=== PATIENT | male | born 1960 | race African-American/Black ===

== ENCOUNTER 2016-10-23 10:50 | Inpatient (IN) | payer MEDICAID ==
[~2016-10-23] VITALS: Ht 182.9 cm; Wt 104.3 kg
[2016-10-23 10:59] VITALS: BP 132/70
[2016-10-23 11:55] LABS: BASOPHILS % (AUTO) 1.1 % (0.0-2.0); EOSINOPHILS % (AUTO) 0.6 % (0.0-3.0); LYMPHOCYTES % (AUTO) 26.4 % (20.0-45.0); MEAN CORPUSCULAR HEMOGLOBIN 29.9 PG (27.0-31.0); MEAN CORPUSCULAR HGB CONC 32.3 G/DL (32.0-36.0); MEAN CORPUSCULAR VOLUME 93 FL (80-99); MEAN PLATELET VOLUME 5.5 FL (6.5-10.1); MONOCYTES % (AUTO) 2.5 % (1.0-10.0); NEUTROPHILS % (AUTO) 69.3 % (45.0-75.0); PLATELET COUNT 315 K/UL (150-450); RED BLOOD COUNT 3.61 M/UL (4.70-6.10); RED CELL DISTRIBUTION WIDTH 13.7 % (11.6-14.8); WHITE BLOOD COUNT 5.9 K/UL (4.8-10.8)
[2016-10-23 12:10] LABS: ALANINE AMINOTRANSFERASE 58 U/L (3-41); ALBUMIN/GLOBULIN RATIO 0.6 (1.0-2.7); ANION GAP 15 (5-15); ASPARTATE AMINO TRANSFERASE 118 U/L (5-40); CALCIUM 9.1 mg/dL (8.6-10.2); CARBON DIOXIDE 28 mEQ/L (20-30); CHLORIDE 96 mEQ/L (98-107); CREATININE 0.9 mg/dL (0.7-1.2); GLOMERULAR FILTRATION RATE > 60 mL/min (>60); HEMOLYSIS 24; POTASSIUM 4.1 mEQ/L (3.4-4.9); SODIUM 139 mEQ/L (135-145); TOTAL PROTEIN 7.9 g/dL (6.6-8.7)
[2016-10-23 14:51] VITALS: BP 122/77
[2016-10-23] MEDS ORDERED: UNOBMED (14:51)
--- NOTE | 2016-10-23 14:51 | Emergency Room Report ---
History of Present Illness General Chief Complaint: Abdominal Pain Source: Patient, EMS Present Illness HPI Patient presents emergency department today complaining of abdominal pain. Patient is homeless. He states that he was an outside hospital where he received some IV fluids and then subsequently his testicles became very enlarged. Has been getting worse over last couple days ago we cannot walk. He called 911 and that's Carmen and appeared. Patient's currently homeless. Patient denies any chest pain. Complains mild shortness breath. Patient is a very poor historian. He does smell of alcohol. Symptoms noted to be severe. No other modifying factors. No other associated signs and symptoms. No other complaints were noted. Allergies: Coded Allergies: No Known Allergies (Unverified , 10/23/16) Patient History Past Medical History: DM, HTN, HIV, other - Substance abuse PMH Narrative hepatitis C Past Surgical History: none Social History: Reports: drug use Reviewed Nursing Documentation: PMH: Agreed, PSxH: Agreed Nursing Documentation-PMH Hx Diabetes: Yes History Of Psychiatric Problem: Yes - Substance abuse Review of Systems All Other Systems: negative except mentioned in HPI Physical Exam Vital Signs Date Time Temp Pulse Resp B/P Pulse Ox O2 Delivery O2 Flow Rate FiO2 10/23/16 10:44 98.6 88 16 132/70 97 Room Air Sp02 EP Interpretation: reviewed, normal General Appearance: alert, other - unkept, appears a little sleepy. Appears chronically ill Head: atraumatic Eyes: bilateral eye normal inspection ENT: normal ENT inspection, hearing grossly normal, normal voice Neck: normal inspection, full range of motion, supple, no bony tend Respiratory: normal inspection, lungs clear, normal breath sounds, no respiratory distress, no retraction, no wheezing Cardiovascular #1: regular rate, rhythm, no edema Gastrointestinal: non tender, distended, other - abdominal distension, ascites Genitourinary: no CVA tenderness, other - enlarged and edematous scrotum Musculoskeletal: normal inspection, back normal, normal range of motion Neurologic: normal inspection, alert, responsive, speech normal Psychiatric: depressed affect, other - poor insight Skin: normal inspection, normal color, no rash Medical Decision Making Diagnostic Impression: Primary Impression: Ascites Additional Impressions: Hydrocele in adult Fluid retention Anasarca Hyperglycemia ER Course Patient presents emergency department today complaining of swelling diffusely throughout the body. Differential considerations include fluid retention secondary to kidney disease, liver disease, fluid overload,. Patient laboratory workup shows evidence of elevated glucose as well. This is consistent hyperglycemia secondary to medication noncompliance or undiagnosed diabetes. Therefore patient was given insulin as well as Lasix. He began to have good urine output. However given severe swelling that he's experiencing evidence anasarca I felt the patient require admission for further treatment. Case was discussed in detail with Dr. Rk Saavedra who very graciously agreed to accept the patient. Patient will be admitted to Dr. Saavedra service further treatment. Labs Test 10/23/16 11:38 White Blood Count 5.9 K/UL (4.8-10.8) Red Blood Count 3.61 M/UL (4.70-6.10) Hemoglobin 10.8 G/DL (14.2-18.0) Hematocrit 33.5 % (42.0-52.0) Mean Corpuscular Volume 93 FL (80-99) Mean Corpuscular Hemoglobin 29.9 PG (27.0-31.0) Mean Corpuscular Hemoglobin Concent 32.3 G/DL (32.0-36.0) Red Cell Distribution Width 13.7 % (11.6-14.8) Platelet Count 315 K/UL (150-450) Mean Platelet Volume 5.5 FL (6.5-10.1) Neutrophils (%) (Auto) 69.3 % (45.0-75.0) Lymphocytes (%) (Auto) 26.4 % (20.0-45.0) Monocytes (%) (Auto) 2.5 % (1.0-10.0) Eosinophils (%) (Auto) 0.6 % (0.0-3.0) Basophils (%) (Auto) 1.1 % (0.0-2.0) Sodium Level 139 mEQ/L (135-145) Potassium Level 4.1 mEQ/L (3.4-4.9) Chloride Level 96 mEQ/L (98-107) Carbon Dioxide Level 28 mEQ/L (20-30) Anion Gap 15 (5-15) Blood Urea Nitrogen 9 mg/dL (7-23) Creatinine 0.9 mg/dL (0.7-1.2) Estimat Glomerular Filtration Rate > 60 mL/min (>60) Glucose Level 521 mg/dL (74-106) Calcium Level 9.1 mg/dL (8.6-10.2) Total Bilirubin 0.3 mg/dL (0.0-1.2) Aspartate Amino Transf (AST/SGOT) 118 U/L (5-40) Alanine Aminotransferase (ALT/SGPT) 58 U/L (3-41) Alkaline Phosphatase 205 U/L (40-129) Total Protein 7.9 g/dL (6.6-8.7) Albumin 3.2 g/dL (3.5-5.2) Globulin 4.7 g/dL Albumin/Globulin Ratio 0.6 (1.0-2.7) Last Vital Signs Date Time Temp Pulse Resp B/P Pulse Ox O2 Delivery O2 Flow Rate FiO2 10/23/16 10:59 98.6 16 132/70 97 Room Air 10/23/16 10:44 88 Status: improved Disposition: ADMITTED INPATIENT Condition: Serious Referrals: NOT CHOSEN IPA/,REFERRING (PCP) WILLY TREVIÑO M.D. Oct 23, 2016 14:51
[2016-10-23 15:55] VITALS: BP 116/78
[2016-10-23 16:28] LABS: APPEARANCE,URINE CLEAR; KETONES,URINE NEGATIVE (NEGATIVE); LEUKOCYTE ESTERASE ,URINE NEGATIVE (NEGATIVE); NITRITE,URINE NEGATIVE (NEGATIVE); PH,URINE 7 (4.5-8.0); PROTEIN,URINE NEGATIVE (NEGATIVE); UROBILINOGEN,URINE NORMAL MG/DL (0.0-1.0)
[2016-10-23] MEDS ORDERED: Ketorolac 30mg Inj IV PRN (18:45)
[2016-10-23] MEDS ORDERED: Mylanta II UD 30ml ORAL PRN (18:45)
[2016-10-23] MEDS ORDERED: Miralax 17gm pkt ORAL PRN (18:45)
[2016-10-23] MEDS ORDERED: DuoNeb 0.5-3(2.5)mg/3ml neb HHN PRN (18:45)
[2016-10-23] MEDS ORDERED: Nitroglycerin Subl 0.4mg tab (Bottle Of 25) SL PRN (18:45)
[2016-10-23 20:20] VITALS: BP 118/67
[2016-10-23 20:46] VITALS: BP 118/67
[2016-10-23] MEDS: Morphine Sulfate 2mg/ml Inj IVP PRN (21:25)
[2016-10-23] MEDS: Heparin 5000 units/ml inj SUBQ SCH (21:29)
[2016-10-23] MEDS: NovoLOG Insulin Flexpen SUBQ SCH (21:29)
--- NOTE | 2016-10-23 23:39 | History & Physical ---
History and Physical History & Physicial The patient was seen and examined at bedside and all new and available data was reviewed in the patients chart.. Last 24 Hour Vital Signs Date Time Temp Pulse Resp B/P Pulse Ox O2 Delivery O2 Flow Rate FiO2 10/23/16 20:46 98.7 99 20 118/67 98 Room Air 10/23/16 20:20 97.9 99 20 118/67 Room Air 10/23/16 15:55 99.7 101 20 116/78 97 Room Air 10/23/16 14:53 98.6 99 16 122/77 100 Room Air 10/23/16 14:51 98.6 99 16 122/77 100 Room Air 10/23/16 10:59 98.6 16 132/70 97 Room Air 10/23/16 10:44 98.6 88 16 132/70 97 Room Air (Patient was seen earlier today. Signature timestamp does not reflect patient encounter time) Rk Palafox MD, MD Oct 23, 2016 23:39
[2016-10-23 23:56] VITALS: BP 99/75
[2016-10-24 04:00] VITALS: BP 97/50
[2016-10-24] MEDS: Morphine Sulfate 2mg/ml Inj IVP PRN ×2 (04:57→18:24)
[2016-10-24] MEDS: NovoLOG Insulin Flexpen SUBQ SCH ×6 (05:56→21:17)
[2016-10-24 07:25] LABS: BASOPHILS % (AUTO) 0.4 % (0.0-2.0); EOSINOPHILS % (AUTO) 0.5 % (0.0-3.0); LYMPHOCYTES % (AUTO) 33.9 % (20.0-45.0); MEAN CORPUSCULAR HGB CONC 32.6 G/DL (32.0-36.0); MEAN CORPUSCULAR VOLUME 92 FL (80-99); MEAN PLATELET VOLUME 5.3 FL (6.5-10.1); MONOCYTES % (AUTO) 4.4 % (1.0-10.0); NEUTROPHILS % (AUTO) 60.9 % (45.0-75.0); PLATELET COUNT 284 K/UL (150-450); RED BLOOD COUNT 3.11 M/UL (4.70-6.10); RED CELL DISTRIBUTION WIDTH 13.7 % (11.6-14.8); WHITE BLOOD COUNT 6.7 K/UL (4.8-10.8)
[2016-10-24 07:29] LABS: ALANINE AMINOTRANSFERASE 43 U/L (3-41); ALBUMIN/GLOBULIN RATIO 0.5 (1.0-2.7); ANION GAP 10 (5-15); ASPARTATE AMINO TRANSFERASE 90 U/L (5-40); CARBON DIOXIDE 30 mEQ/L (20-30); CHLORIDE 102 mEQ/L (98-107); CHOLESTEROL 134 mg/dL (< 200); CHOLESTEROL/HDL RATIO 2.6 (3.3-4.4); CREATININE 0.8 mg/dL (0.7-1.2); GLOMERULAR FILTRATION RATE > 60 mL/min (>60); HEMOLYSIS 4; LDL CHOLESTEROL (CALC.) 67 mg/dL (60-99); POTASSIUM 3.6 mEQ/L (3.4-4.9); SODIUM 142 mEQ/L (135-145); TOTAL PROTEIN 6.1 g/dL (6.6-8.7)
[2016-10-24 08:21] LABS: HEMOGLOBIN A1C 15.9 % (< 6.0)
[2016-10-24 08:30] VITALS: BP 112/74
[2016-10-24] MEDS ORDERED: Levemir Flexpen SUBQ SCH (09:00)
[2016-10-24] MEDS: Heparin 5000 units/ml inj SUBQ SCH ×2 (09:00→21:18)
--- NOTE | 2016-10-24 11:38 | Consultation ---
DATE OF CONSULTATION: 10/24/2016 ENDOCRINOLOGY CONSULTATION: CONSULTING PHYSICIAN: Colton Nunez M.D. REFERRING PHYSICIAN: Rk Saavedra M.D. REASON FOR CONSULTATION: Diabetes management. HISTORY OF PRESENT ILLNESS: This is a 56-year-old, male, homeless with history of diabetes, diagnosed in 1994. The patient initially started on metformin and glipizide and later on his diabetes turned to type 1 was started on insulin. The patient is on insulin regular as an outpatient that he is not being compliant since he cannot keep his insulin with him and also it was stollen few times . PAST MEDICAL HISTORY: 1. Diabetes. 2. Hypertension. 3. Human immunodeficiency virus. PAST SURGICAL HISTORY: None. FAMILY HISTORY: Noncontributory. REVIEW OF SYSTEMS: As per history of present illness. SOCIAL HISTORY: History of substance abuse. Denies any alcohol or smoking. LABORATORY DATA: WBC 5.9, hemoglobin 10.8, hematocrit 32.5, and platelets of 316,000. Sodium 139, potassium 4.1, chloride 96, bicarbonate 28, BUN 9, creatinine 0.9, and glucose of 521. PHYSICAL EXAMINATION: GENERAL: He is awake and alert. VITAL SIGNS: Blood pressure is 97/50, pulse 148, temperature of 97.9, and respiratory rate of 18. HEENT: Pupils are equal and reactive to light and accommodation. Sclerae are anicteric. NECK: No JVD. No thyromegaly. No bruit. LUNGS: Clear. HEART: Regular rate and rhythm. ABDOMEN: Positive bowel sounds. EXTREMITIES: No clubbing or cyanosis. Trace edema. GENITALIA: Scrotal swelling. DIAGNOSES: 1. Diabetes, out of control. 2. Hypertension. 3. Human immunodeficiency virus. 4. Scrotal swelling. PLAN: 1. Continue with IV fluids. 2. Levemir 18 units daily. 3. NovoLog 6 units before each meal. 4. Sliding scale insulin. 5. Further adjustment needs to be done according to blood glucose values. Thank you, Dr. Saavedra, for the courtesy of this consultation. Colton Nunez M.D. DR: YANIRA/MARIO JOB#: [id number] CC: LELO
[2016-10-24 11:47] VITALS: BP 156/84
[2016-10-24 16:03] VITALS: BP 120/77
--- NOTE | 2016-10-24 16:37 | Consultation ---
Consult Note Consult Note ID CONSULT: Dict# [id number] Assessment/Plan ASSESSMENT: 56 y/o male with: // Testicular swelling, possible mild cellulitis // HIV, probable AIDS, not on cART, unknown CD4 // Elevated LFTs, h/o HCV // Periodontal disease // Afebrile without leukocytosis // UDS(+) BZD, cocaine // DM2 // Homeless // NKDA // Full Code PLAN: - start empiric keflex for possible mild cellulitis - check testicular US - outpt referral for HIV, HCV Rx - monitor CBC, temperatures - monitor BMP Thanks! Will follow ALLY SHAVER Oct 24, 2016 16:37
[2016-10-24] MEDS: Cephalexin 500mg cap ORAL SCH ×2 (18:24→21:12)
[2016-10-24 19:58] VITALS: BP 128/77
--- NOTE | 2016-10-24 20:28 | Internal Med Progress Note ---
Subjective Physician Name Rk Saavedra Attending Physician Rk Saavedra MD Current Medications Medications (Trade) Dose Ordered Sig/Jan Route PRN Reason Start Time Stop Time Status Last Admin Dose Admin Acetaminophen (Tylenol) 650 mg Q4H PRN ORAL fever 10/23/16 18:45 11/22/16 18:44 Al Hydroxide/Mg Hydroxide (Mylanta II) 30 ml Q6H PRN ORAL dyspepsia 10/23/16 18:45 11/22/16 18:44 Albuterol/ Ipratropium (DuoNeb 0.5-3(2.5)mg/3ml) 3 ml Q4H PRN HHN Shortness of Breath 10/23/16 18:45 10/28/16 18:44 Cephalexin (Keflex) 500 mg FOUR TIMES A DAY ORAL 10/24/16 18:00 10/31/16 17:59 10/24/16 18:24 Clonidine HCl 0.1 mg 0.1 mg Q4H PRN ORAL sbp more than 160 10/23/16 18:45 11/22/16 18:44 Dextrose (Dextrose 50%) STAT PRN IV Hypoglycemia 10/24/16 06:30 11/23/16 06:29 Heparin Sodium (Porcine) (Heparin 5000 units/ml) 5,000 units EVERY 12 HOURS SUBQ 10/23/16 21:00 11/22/16 20:59 10/23/16 21:29 Insulin Aspart (NovoLOG) BEFORE MEALS AND HS SUBQ 10/23/16 21:00 11/22/16 20:59 10/24/16 16:49 Insulin Aspart (NovoLOG) 6 units NOVOTIAC SUBQ 10/24/16 11:50 11/23/16 11:49 10/24/16 18:31 Insulin Detemir (Levemir) 18 units DAILY SUBQ 10/24/16 09:00 11/23/16 08:59 Ketorolac Tromethamine (Toradol 30mg) 30 mg Q6H PRN IV moderate pain 4-6 10/23/16 18:45 10/28/16 18:44 Morphine Sulfate (Morphine Sulfate) 2 mg Q4H PRN IVP severe pain 7-10 10/23/16 18:45 10/30/16 18:44 10/24/16 18:24 Nitroglycerin (Ntg) 0.4 mg Q5M X 3 DOSES PRN SL Prn Chest Pain 10/23/16 18:45 11/22/16 18:44 Ondansetron HCl (Zofran) 4 mg Q6H PRN IVP Nausea & Vomiting 10/23/16 18:45 11/22/16 18:44 Polyethylene Glycol (Miralax) 17 gm HSPRN PRN ORAL Constipation 10/23/16 18:45 11/22/16 18:44 Sodium Chloride (Sodium Chloride 1000ml bag) 1,000 ml @ 100 mls/hr Q10H IVLG 10/23/16 19:30 11/22/16 19:29 10/24/16 05:47 Temazepam (Restoril) 15 mg HSPRN PRN ORAL Insomnia 10/23/16 18:45 10/30/16 18:44 10/24/16 02:28 Allergies: Coded Allergies: No Known Allergies (Unverified , 10/23/16) Subjective awake, alert, responsive. eating good. Objective Last Vital Signs Date Time Temp Pulse Resp B/P Pulse Ox O2 Delivery O2 Flow Rate FiO2 10/24/16 19:58 99.1 97 21 128/77 94 Room Air 10/24/16 09:54 21 Laboratory Tests Test 10/24/16 05:00 10/24/16 05:40 Urine Opiates Screen Negative (NEGATIVE) Urine Barbiturates Screen Negative (NEGATIVE) Phencyclidine (PCP) Screen Negative (NEGATIVE) Urine Amphetamines Screen Negative (NEGATIVE) Urine Benzodiazepines Screen Positive (NEGATIVE) H Urine Cocaine Screen Positive (NEGATIVE) H Urine Marijuana (THC) Screen Negative (NEGATIVE) White Blood Count 6.7 K/UL (4.8-10.8) Red Blood Count 3.11 M/UL (4.70-6.10) L Hemoglobin 9.3 G/DL (14.2-18.0) L Hematocrit 28.5 % (42.0-52.0) L Mean Corpuscular Volume 92 FL (80-99) Mean Corpuscular Hemoglobin 30.0 PG (27.0-31.0) Mean Corpuscular Hemoglobin Concent 32.6 G/DL (32.0-36.0) Red Cell Distribution Width 13.7 % (11.6-14.8) Platelet Count 284 K/UL (150-450) Mean Platelet Volume 5.3 FL (6.5-10.1) L Neutrophils (%) (Auto) 60.9 % (45.0-75.0) Lymphocytes (%) (Auto) 33.9 % (20.0-45.0) Monocytes (%) (Auto) 4.4 % (1.0-10.0) Eosinophils (%) (Auto) 0.5 % (0.0-3.0) Basophils (%) (Auto) 0.4 % (0.0-2.0) Sodium Level 142 mEQ/L (135-145) Potassium Level 3.6 mEQ/L (3.4-4.9) Chloride Level 102 mEQ/L (98-107) Carbon Dioxide Level 30 mEQ/L (20-30) Anion Gap 10 (5-15) Blood Urea Nitrogen 8 mg/dL (7-23) Creatinine 0.8 mg/dL (0.7-1.2) Estimat Glomerular Filtration Rate > 60 mL/min (>60) Glucose Level 135 mg/dL (74-106) #H Hemoglobin A1c 15.9 % (< 6.0) H Calcium Level 8.0 mg/dL (8.6-10.2) L Total Bilirubin 0.2 mg/dL (0.0-1.2) Aspartate Amino Transf (AST/SGOT) 90 U/L (5-40) H Alanine Aminotransferase (ALT/SGPT) 43 U/L (3-41) H Alkaline Phosphatase 151 U/L (40-129) H Total Protein 6.1 g/dL (6.6-8.7) L Albumin 2.2 g/dL (3.5-5.2) L Globulin 3.9 g/dL Albumin/Globulin Ratio 0.5 (1.0-2.7) L Triglycerides Level 77 mg/dL (< 150) Cholesterol Level 134 mg/dL (< 200) LDL Cholesterol 67 mg/dL (60-99) HDL Cholesterol 52 mg/dL (> 60) Cholesterol/HDL Ratio 2.6 (3.3-4.4) L Thyroid Stimulating Hormone (TSH) 1.050 uIU/mL (0.300-4.500) Intake and Output 10/23/16 10/24/16 19:00 07:00 Intake Total 120 ml 1140 ml Output Total 1400 ml 2000 ml Balance -1280 ml -860 ml Intake Oral 120 ml 240 ml IV Total 900 ml Output Urine Total 1400 ml 2000 ml Objective GENERAL: No apparent distress. Nontoxic appearing HEAD: PERRLA, EOMI NECK: Supple no JVD CARDIOVASCULAR: Regular rate and rhythm. No murmurs. PULMONARY: Clear to auscultation bilaterally. ABDOMEN: Bowel sounds present. Soft, nondistended, and nontender. Well-healed surgical scars. GENITOURINARY: Testicular swelling. No significant erythema or warmth. EXTREMITIES: +2 Edema in the lower extremities. Assessment/Plan Assessment/Plan 1. Testicular swelling, possible mild cellulitis. 2. Human immunodeficiency virus and probable acquired immune deficiency syndrome, not on treatment with unknown CD4 count. 3. Elevated liver function tests with history of hepatitis C, never treated. 4. Periodontal disease. 5. polysubstance abuse 6. Uncontrolled Diabetes type 2. 7. Homelessness. PLAN: 1. On empiric Keflex 2. DC IVF 3. Lasix as needed 4. Follow up cultures. 5. DC Planning Rk Saavedra MD Oct 24, 2016 20:28
--- NOTE | 2016-10-24 21:21 | Wound Care Consultation ---
Wound Assessment Wound Assessment : Wound Present on Admission: Yes New Wound: No Status Change of Wound: No Wound Location Body Site Modif: left, right, lower Wound Location Body Site: leg Wound Type: scab Zaid Test: Does not Zaid Edema Degree: 2+ indent readily Wound Drainage Amount: None Wound Drainage Odor: None/Absent Tissue Surrounding Wound: Edematous Wound General Appearance: Asymptomatic Wound Comment #1 Bilateral lower legs with multiple scab and scar. Recommendation -Keep clean and dry -Turn and reposition -Optimize nutrition -Elevate both legs -Assess and f/u accordingly for any changes ANDREI MORTON RN Oct 24, 2016 21:21
--- NOTE | 2016-10-24 22:40 | Consultation ---
DATE OF CONSULTATION: 10/24/2016 ATTENDING PHYSICIAN: Rk Saavedra M.D. REASON FOR CONSULTATION: HIV. HISTORY OF PRESENT ILLNESS: This is a 56-year-old homeless male with a history of hepatitis C and HIV, neither of which he has received treatment for, admitted on 10/23/2016 with testicular pain ____ mild swelling. He is afebrile without leukocytosis. No cultures have been sent or imaging performed. ID now consulted to assist in management. PAST MEDICAL HISTORY: 1. HIV, not on antiretroviral therapy. He was only on antiretroviral therapy for a short time back in 2011. 2. History of hepatitis C, but has never been treated and unknown status. 3. Hypertension. 4. Diabetes. PAST SURGICAL HISTORY: surgery for small bowel obstruction. FAMILY HISTORY: Noncontributory. SOCIAL HISTORY: The patient is homeless and has a history of polysubstance abuse. ALLERGIES: No known drug allergies. MEDICATIONS: 1. No antibiotics. 2. Please refer to [facility] for additional medications. REVIEW OF SYSTEMS: As per history of present illness. Ten systems reviewed. All pertinent positives and negatives as noted. PHYSICAL EXAMINATION: VITAL SIGNS: Maximum temperature 99.5, blood pressure 120/77, heart rate in the 90s, respiratory rate 22, and saturating 97% on room air. GENERAL: No apparent distress. Nontoxic appearing. CARDIOVASCULAR: Regular rate and rhythm. No murmurs. PULMONARY: Clear to auscultation bilaterally. ABDOMEN: Bowel sounds present. Soft, nondistended, and nontender. Well-healed surgical scars. GENITOURINARY: Testicular swelling. No significant erythema or warmth. EXTREMITIES: Edema in the lower extremities. LABORATORY DATA: White blood cell count 6.7, hemoglobin 9.3, and platelets 284,000. Sodium 142, potassium 3.6, chloride 102, bicarbonate 30, BUN 8, and creatinine 0.6. AST 90, ALT 43, alkaline phosphatase 151, total bilirubin 0.2, and albumin 2.2. MICROBIOLOGY: None. IMAGING: None. ASSESSMENT: 1. Testicular swelling, possible mild cellulitis. 2. Human immunodeficiency virus and probable acquired immune deficiency syndrome, not on treatment with unknown CD4 count. 3. Elevated liver function tests with history of hepatitis C, never treated. 4. Periodontal disease. 5. Afebrile without leukocytosis. 6. Urine drug screen positive for benzodiazepines and cocaine. 7. Diabetes type 2. 8. Homelessness. 9. No known drug allergies. 10. Full Code. PLAN: 1. Start empiric Keflex for possible mild scrotal cellulitis. 2. Check testicular ultrasound. 3. Outpatient referral for human immunodeficiency virus and hepatitis C treatment. 4. Follow up cultures. 5. Monitor CBC and temperatures. 6. Monitor BMP. Thank you. We will follow. Rian Anderson M.D. DR: MARISOL JOB#: [id number] CC: Rk Saavedra M.D.; Fax#: [phone] Koch M.D; Fax#: [phone]
[2016-10-25] VITALS: BP 108/65
--- NOTE | 2016-10-25 | Consultation ---
History of Present Illness General Date patient seen: Oct 24, 2016 Chief Complaint: Abdominal Pain Reason for Consultation: inpatient management Present Illness HPI 56 year old male with hx of HIV, Hep C, DM, [place] [facility] [place] of increased fatigue and swelling of scrotum. Allergies: Coded Allergies: No Known Allergies (Unverified , 10/23/16) Medication History Miscellaneous Medications Unable to Obtain Medications (Unable To Obtain Meds), (Reported) Patient History Healthcare decision maker Resuscitation status Full Code Advanced Directive on File Past Medical/Surgical History Past Medical/Surgical History: (1) HIV disease (2) Hepatitis C (3) Ascites (4) Anasarca Review of Systems All Other Systems: negative except mentioned in HPI Physical Exam Last 24 Hour Vital Signs Date Time Temp Pulse Resp B/P Pulse Ox O2 Delivery O2 Flow Rate FiO2 10/24/16 19:58 99.1 97 21 128/77 94 Room Air 10/24/16 19:00 88 16 Room Air 21 10/24/16 16:03 99.5 96 22 120/77 97 Room Air 10/24/16 11:47 97.0 100 20 156/84 97 Room Air 10/24/16 09:54 88 14 Room Air 21 10/24/16 08:30 97.0 120 20 112/74 98 Room Air 10/24/16 04:00 97.9 148 18 97/50 98 Room Air Intake and Output 10/24/16 10/25/16 18:59 06:59 Intake Total 1260 ml 640 ml Output Total 240 ml 1000 ml Balance 1020 ml -360 ml Intake Oral 360 ml 640 ml IV Total 900 ml Output Urine Total 240 ml 1000 ml # Voids 1 2 Laboratory Tests Test 10/24/16 05:00 10/24/16 05:40 Urine Opiates Screen Negative (NEGATIVE) Urine Barbiturates Screen Negative (NEGATIVE) Phencyclidine (PCP) Screen Negative (NEGATIVE) Urine Amphetamines Screen Negative (NEGATIVE) Urine Benzodiazepines Screen Positive (NEGATIVE) H Urine Cocaine Screen Positive (NEGATIVE) H Urine Marijuana (THC) Screen Negative (NEGATIVE) White Blood Count 6.7 K/UL (4.8-10.8) Red Blood Count 3.11 M/UL (4.70-6.10) L Hemoglobin 9.3 G/DL (14.2-18.0) L Hematocrit 28.5 % (42.0-52.0) L Mean Corpuscular Volume 92 FL (80-99) Mean Corpuscular Hemoglobin 30.0 PG (27.0-31.0) Mean Corpuscular Hemoglobin Concent 32.6 G/DL (32.0-36.0) Red Cell Distribution Width 13.7 % (11.6-14.8) Platelet Count 284 K/UL (150-450) Mean Platelet Volume 5.3 FL (6.5-10.1) L Neutrophils (%) (Auto) 60.9 % (45.0-75.0) Lymphocytes (%) (Auto) 33.9 % (20.0-45.0) Monocytes (%) (Auto) 4.4 % (1.0-10.0) Eosinophils (%) (Auto) 0.5 % (0.0-3.0) Basophils (%) (Auto) 0.4 % (0.0-2.0) Sodium Level 142 mEQ/L (135-145) Potassium Level 3.6 mEQ/L (3.4-4.9) Chloride Level 102 mEQ/L (98-107) Carbon Dioxide Level 30 mEQ/L (20-30) Anion Gap 10 (5-15) Blood Urea Nitrogen 8 mg/dL (7-23) Creatinine 0.8 mg/dL (0.7-1.2) Estimat Glomerular Filtration Rate > 60 mL/min (>60) Glucose Level 135 mg/dL (74-106) #H Hemoglobin A1c 15.9 % (< 6.0) H Calcium Level 8.0 mg/dL (8.6-10.2) L Total Bilirubin 0.2 mg/dL (0.0-1.2) Aspartate Amino Transf (AST/SGOT) 90 U/L (5-40) H Alanine Aminotransferase (ALT/SGPT) 43 U/L (3-41) H Alkaline Phosphatase 151 U/L (40-129) H Total Protein 6.1 g/dL (6.6-8.7) L Albumin 2.2 g/dL (3.5-5.2) L Globulin 3.9 g/dL Albumin/Globulin Ratio 0.5 (1.0-2.7) L Triglycerides Level 77 mg/dL (< 150) Cholesterol Level 134 mg/dL (< 200) LDL Cholesterol 67 mg/dL (60-99) HDL Cholesterol 52 mg/dL (> 60) Cholesterol/HDL Ratio 2.6 (3.3-4.4) L Thyroid Stimulating Hormone (TSH) 1.050 uIU/mL (0.300-4.500) Height (Feet): 6 Height (Inches): 0.00 Weight (Pounds): 230 Medications Current Medications Medications (Trade) Dose Ordered Sig/Jan Route PRN Reason Start Time Stop Time Status Last Admin Dose Admin Acetaminophen (Tylenol) 650 mg Q4H PRN ORAL fever 10/23/16 18:45 11/22/16 18:44 Al Hydroxide/Mg Hydroxide (Mylanta II) 30 ml Q6H PRN ORAL dyspepsia 10/23/16 18:45 11/22/16 18:44 Albuterol/ Ipratropium (DuoNeb 0.5-3(2.5)mg/3ml) 3 ml Q4H PRN HHN Shortness of Breath 10/23/16 18:45 10/28/16 18:44 Cephalexin (Keflex) 500 mg FOUR TIMES A DAY ORAL 10/24/16 18:00 10/31/16 17:59 10/24/16 21:12 Clonidine HCl 0.1 mg 0.1 mg Q4H PRN ORAL sbp more than 160 10/23/16 18:45 11/22/16 18:44 Dextrose (Dextrose 50%) STAT PRN IV Hypoglycemia 10/24/16 06:30 11/23/16 06:29 Heparin Sodium (Porcine) (Heparin 5000 units/ml) 5,000 units EVERY 12 HOURS SUBQ 10/23/16 21:00 11/22/16 20:59 10/24/16 21:18 Insulin Aspart (NovoLOG) BEFORE MEALS AND HS SUBQ 10/23/16 21:00 11/22/16 20:59 10/24/16 21:17 Insulin Aspart (NovoLOG) 6 units NOVOTIAC SUBQ 10/24/16 11:50 11/23/16 11:49 10/24/16 18:31 Insulin Detemir (Levemir) 18 units DAILY SUBQ 10/24/16 09:00 11/23/16 08:59 Ketorolac Tromethamine (Toradol 30mg) 30 mg Q6H PRN IV moderate pain 4-6 10/23/16 18:45 10/28/16 18:44 Morphine Sulfate (Morphine Sulfate) 2 mg Q4H PRN IVP severe pain 7-10 10/23/16 18:45 10/30/16 18:44 10/24/16 18:24 Nitroglycerin (Ntg) 0.4 mg Q5M X 3 DOSES PRN SL Prn Chest Pain 10/23/16 18:45 11/22/16 18:44 Ondansetron HCl (Zofran) 4 mg Q6H PRN IVP Nausea & Vomiting 10/23/16 18:45 11/22/16 18:44 Polyethylene Glycol (Miralax) 17 gm HSPRN PRN ORAL Constipation 10/23/16 18:45 11/22/16 18:44 Sodium Chloride (Sodium Chloride 1000ml bag) 1,000 ml @ 100 mls/hr Q10H IVLG 10/23/16 19:30 11/22/16 19:29 10/24/16 05:47 Temazepam (Restoril) 15 mg HSPRN PRN ORAL Insomnia 10/23/16 18:45 10/30/16 18:44 10/24/16 02:28 Objective Narrative General Appearance: WD/WN, no apparent distress, alert EENT: PERRL/EOMI, normal ENT inspection, TMs normal, hair lose. Neck: non-tender, normal alignment, supple, normal inspection Cardiovascular: normal peripheral pulses, normal rate, regular rhythm, no murmur. Respiratory/Chest: CTA, crackles/rales, rhonchi , no wheezing Abdomen: normal bowel sounds, non tender, soft, no mass Extremities: normal range of motion, non-tender Neurologic: non cdl driver II-XII grossly normal, Moving all extremities. Skin: normal pigmentation, warm/dry Assessment/Plan Problem List: (1) Anasarca ICD Codes: R60.1 - Generalized edema SNOMED: 499345038, 733625720 (2) Hydrocele in adult ICD Codes: N43.3 - Hydrocele, unspecified SNOMED: 59702730413300, 783444889 (3) HIV disease ICD Codes: B20 - Human immunodeficiency virus [HIV] disease SNOMED: 33557589 (4) Hepatitis C ICD Codes: B19.20 - Unspecified viral hepatitis C without hepatic coma SNOMED: 00504261 (5) Hyperglycemia ICD Codes: R73.9 - Hyperglycemia, unspecified SNOMED: 22789198, 006304162 Assessment/Plan iv antibiotics for cellulitis HIV evaluation social service consult sliding scale FELICITA CUNNINGHAM Oct 25, 2016 00:00
[2016-10-25] MEDS: Morphine Sulfate 2mg/ml Inj IVP PRN ×3 (00:09→18:09)
[2016-10-25 04:00] VITALS: BP 114/73
[2016-10-25] MEDS: NovoLOG Insulin Flexpen SUBQ SCH ×7 (06:00→20:43)
--- NOTE | 2016-10-25 07:38 | General Progress Note ---
Assessment/Plan Problem List: (1) Hydrocele in adult ICD Codes: N43.3 - Hydrocele, unspecified SNOMED: 29213481489350, 774850508 (2) Hyperglycemia ICD Codes: R73.9 - Hyperglycemia, unspecified SNOMED: 47822425, 893403321 (3) Fluid retention ICD Codes: E87.70 - Fluid overload, unspecified SNOMED: 64462960, 607466177 Assessment/Plan elevated fasting glucose this morning he did not receive Levemir 18 units yesterday am - increase Levemir to 15 units bid - increase Novolog 10 units ac tid - SSI Subjective Allergies: Coded Allergies: No Known Allergies (Unverified , 10/23/16) All Systems: reviewed and negative except above Subjective elevated glucose this morning he is constantly hungry Objective Last 24 Hour Vital Signs Date Time Temp Pulse Resp B/P Pulse Ox O2 Delivery O2 Flow Rate FiO2 10/25/16 04:00 98.2 93 16 114/73 93 Room Air 10/25/16 00:00 97.5 96 16 108/65 94 Room Air 10/24/16 19:58 99.1 97 21 128/77 94 Room Air 10/24/16 19:00 88 16 Room Air 21 10/24/16 16:03 99.5 96 22 120/77 97 Room Air 10/24/16 11:47 97.0 100 20 156/84 97 Room Air 10/24/16 09:54 88 14 Room Air 21 10/24/16 08:30 97.0 120 20 112/74 98 Room Air Intake and Output 10/24/16 10/25/16 18:59 06:59 Intake Total 1260 ml 1480 ml Output Total 240 ml 1700 ml Balance 1020 ml -220 ml Intake Oral 360 ml 880 ml IV Total 900 ml 600 ml Output Urine Total 240 ml 1700 ml # Voids 1 5 Height (Feet): 6 Height (Inches): 0.00 Weight (Pounds): 230 General Appearance: no apparent distress Neck: normal alignment Cardiovascular: normal rate Respiratory/Chest: decreased breath sounds Abdomen: normal bowel sounds Objective Current Medications Medications (Trade) Dose Ordered Sig/Jan Route PRN Reason Start Time Stop Time Status Last Admin Dose Admin Acetaminophen (Tylenol) 650 mg Q4H PRN ORAL fever 10/23/16 18:45 11/22/16 18:44 Al Hydroxide/Mg Hydroxide (Mylanta II) 30 ml Q6H PRN ORAL dyspepsia 10/23/16 18:45 11/22/16 18:44 Albuterol/ Ipratropium (DuoNeb 0.5-3(2.5)mg/3ml) 3 ml Q4H PRN HHN Shortness of Breath 10/23/16 18:45 10/28/16 18:44 Cephalexin (Keflex) 500 mg FOUR TIMES A DAY ORAL 10/24/16 18:00 10/31/16 17:59 10/24/16 21:12 Clonidine HCl 0.1 mg 0.1 mg Q4H PRN ORAL sbp more than 160 10/23/16 18:45 11/22/16 18:44 Dextrose (Dextrose 50%) STAT PRN IV Hypoglycemia 10/24/16 06:30 11/23/16 06:29 Heparin Sodium (Porcine) (Heparin 5000 units/ml) 5,000 units EVERY 12 HOURS SUBQ 10/23/16 21:00 11/22/16 20:59 10/24/16 21:18 Insulin Aspart (NovoLOG) BEFORE MEALS AND HS SUBQ 10/23/16 21:00 11/22/16 20:59 10/25/16 06:00 Insulin Aspart (NovoLOG) 6 units NOVOTIAC SUBQ 10/24/16 11:50 11/23/16 11:49 10/25/16 06:00 Insulin Detemir (Levemir) 18 units DAILY SUBQ 10/24/16 09:00 11/23/16 08:59 Ketorolac Tromethamine (Toradol 30mg) 30 mg Q6H PRN IV moderate pain 4-6 10/23/16 18:45 10/28/16 18:44 Morphine Sulfate (Morphine Sulfate) 2 mg Q4H PRN IVP severe pain 7-10 10/23/16 18:45 10/30/16 18:44 10/25/16 00:09 Nitroglycerin (Ntg) 0.4 mg Q5M X 3 DOSES PRN SL Prn Chest Pain 10/23/16 18:45 11/22/16 18:44 Ondansetron HCl (Zofran) 4 mg Q6H PRN IVP Nausea & Vomiting 10/23/16 18:45 11/22/16 18:44 Polyethylene Glycol (Miralax) 17 gm HSPRN PRN ORAL Constipation 10/23/16 18:45 11/22/16 18:44 Sodium Chloride (Sodium Chloride 1000ml bag) 1,000 ml @ 100 mls/hr Q10H IVLG 10/23/16 19:30 11/22/16 19:29 10/25/16 00:09 Temazepam (Restoril) 15 mg HSPRN PRN ORAL Insomnia 10/23/16 18:45 10/30/16 18:44 10/24/16 02:28 Item Value Date Time Bedside Blood Glucose 478 mg/dl H 10/25/16 0612 Bedside Blood Glucose 226 mg/dl H 10/24/16 2117 Bedside Blood Glucose 223 mg/dl H 10/24/16 1831 Bedside Blood Glucose 212 mg/dl H 10/24/16 1152 FREDY GALAVIZ Oct 25, 2016 07:38
[2016-10-25 07:42] VITALS: BP 128/82
[2016-10-25] MEDS: Cephalexin 500mg cap ORAL SCH ×4 (09:25→20:40)
[2016-10-25] MEDS: Heparin 5000 units/ml inj SUBQ SCH ×2 (09:33→20:44)
[2016-10-25] MEDS: Levemir Flexpen SUBQ SCH ×2 (10:15→18:18)
[2016-10-25 10:34] LABS: ALANINE AMINOTRANSFERASE 48 U/L (3-41); ALBUMIN/GLOBULIN RATIO 0.5 (1.0-2.7); ANION GAP 12 (5-15); ASPARTATE AMINO TRANSFERASE 83 U/L (5-40); CALCIUM 8.4 mg/dL (8.6-10.2); CARBON DIOXIDE 28 mEQ/L (20-30); CHLORIDE 96 mEQ/L (98-107); CREATININE 0.9 mg/dL (0.7-1.2); GLOMERULAR FILTRATION RATE > 60 mL/min (>60); HEMOLYSIS 12; MAGNESIUM 1.6 mg/dL (1.7-2.5); PHOSPHORUS 3.4 mg/dL (2.5-4.8); POTASSIUM 4.5 mEQ/L (3.4-4.9); SODIUM 136 mEQ/L (135-145)
[2016-10-25 12:12] VITALS: BP 151/79
[2016-10-25] MEDS ORDERED: LEVEMIR FL100 UNIT/1 SUBQ (13:50)
[2016-10-25] MEDS ORDERED: NOVOLOG100 UNITS1 SUBQ (13:50)
--- NOTE | 2016-10-25 13:51 | Internal Med Progress Note ---
Subjective Physician Name Rk Saavedra Attending Physician Rk Saavedra MD Current Medications Medications (Trade) Dose Ordered Sig/Jan Route PRN Reason Start Time Stop Time Status Last Admin Dose Admin Acetaminophen (Tylenol) 650 mg Q4H PRN ORAL fever 10/23/16 18:45 11/22/16 18:44 Al Hydroxide/Mg Hydroxide (Mylanta II) 30 ml Q6H PRN ORAL dyspepsia 10/23/16 18:45 11/22/16 18:44 Albuterol/ Ipratropium (DuoNeb 0.5-3(2.5)mg/3ml) 3 ml Q4H PRN HHN Shortness of Breath 10/23/16 18:45 10/28/16 18:44 Cephalexin (Keflex) 500 mg FOUR TIMES A DAY ORAL 10/24/16 18:00 10/31/16 17:59 10/25/16 12:38 Clonidine HCl (Catapres) 0.1 mg Q4H PRN ORAL sbp more than 160 10/23/16 18:45 11/22/16 18:44 Dextrose (Dextrose 50%) STAT PRN IV Hypoglycemia 10/24/16 06:30 11/23/16 06:29 Heparin Sodium (Porcine) (Heparin 5000 units/ml) 5,000 units EVERY 12 HOURS SUBQ 10/23/16 21:00 11/22/16 20:59 10/25/16 09:33 Insulin Aspart (NovoLOG) BEFORE MEALS AND HS SUBQ 10/23/16 21:00 11/22/16 20:59 10/25/16 11:49 Insulin Aspart (NovoLOG) 10 units NOVOTIAC SUBQ 10/25/16 11:50 11/24/16 11:49 10/25/16 11:49 Insulin Detemir (Levemir) 15 units BID SUBQ 10/25/16 09:00 11/24/16 08:59 10/25/16 10:15 Ketorolac Tromethamine (Toradol 30mg) 30 mg Q6H PRN IV moderate pain 4-6 10/23/16 18:45 10/28/16 18:44 Morphine Sulfate (Morphine Sulfate) 2 mg Q4H PRN IVP severe pain 7-10 10/23/16 18:45 10/30/16 18:44 10/25/16 10:27 Nitroglycerin (Ntg) 0.4 mg Q5M X 3 DOSES PRN SL Prn Chest Pain 10/23/16 18:45 11/22/16 18:44 Ondansetron HCl (Zofran) 4 mg Q6H PRN IVP Nausea & Vomiting 10/23/16 18:45 11/22/16 18:44 Polyethylene Glycol (Miralax) 17 gm HSPRN PRN ORAL Constipation 10/23/16 18:45 11/22/16 18:44 Temazepam (Restoril) 15 mg HSPRN PRN ORAL Insomnia 10/23/16 18:45 10/30/16 18:44 10/24/16 02:28 Allergies: Coded Allergies: No Known Allergies (Unverified , 10/23/16) Subjective awake, alert, responsive. eating a lot. Objective Last Vital Signs Date Time Temp Pulse Resp B/P Pulse Ox O2 Delivery O2 Flow Rate FiO2 10/25/16 12:12 97.7 77 20 151/79 95 Room Air 10/25/16 08:06 21 Laboratory Tests Test 10/25/16 09:10 Sodium Level 136 mEQ/L (135-145) Potassium Level 4.5 mEQ/L (3.4-4.9) Chloride Level 96 mEQ/L (98-107) L Carbon Dioxide Level 28 mEQ/L (20-30) Anion Gap 12 (5-15) Blood Urea Nitrogen 14 mg/dL (7-23) Creatinine 0.9 mg/dL (0.7-1.2) Estimat Glomerular Filtration Rate > 60 mL/min (>60) Glucose Level 364 mg/dL (74-106) #H Calcium Level 8.4 mg/dL (8.6-10.2) L Phosphorus Level 3.4 mg/dL (2.5-4.8) Magnesium Level 1.6 mg/dL (1.7-2.5) L Total Bilirubin 0.2 mg/dL (0.0-1.2) Aspartate Amino Transf (AST/SGOT) 83 U/L (5-40) H Alanine Aminotransferase (ALT/SGPT) 48 U/L (3-41) H Alkaline Phosphatase 194 U/L (40-129) H Total Protein 7.0 g/dL (6.6-8.7) Albumin 2.6 g/dL (3.5-5.2) L Globulin 4.4 g/dL Albumin/Globulin Ratio 0.5 (1.0-2.7) L Microbiology Date/Time Source Procedure Growth Status 10/23/16 13:35 Nasal Nares MRSA Culture - Final Staphylococcus Aureus - Mrsa Complete 10/23/16 13:35 Rectum 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 Complete Intake and Output 10/24/16 10/25/16 19:00 07:00 Intake Total 1160 ml 1580 ml Output Total 240 ml 1700 ml Balance 920 ml -120 ml Intake Oral 360 ml 880 ml IV Total 800 ml 700 ml Output Urine Total 240 ml 1700 ml # Voids 1 5 Objective GENERAL: No apparent distress. Nontoxic appearing HEAD: PERRLA, EOMI NECK: Supple no JVD CARDIOVASCULAR: Regular rate and rhythm. No murmurs. PULMONARY: Clear to auscultation bilaterally. ABDOMEN: Bowel sounds present. Soft, nondistended, and nontender. Well-healed surgical scars. GENITOURINARY: Testicular swelling. No significant erythema or warmth. EXTREMITIES: +2 Edema in the lower extremities. Assessment/Plan Assessment/Plan 1. Testicular swelling, possible mild cellulitis. 2. Human immunodeficiency virus and probable acquired immune deficiency syndrome, not on treatment with unknown CD4 count. 3. Elevated liver function tests with history of hepatitis C, never treated. 4. Periodontal disease. 5. polysubstance abuse 6. Uncontrolled Diabetes type 2. 7. Homelessness. PLAN: 1. On empiric Keflex 2. discuss with RN 3. Lasix as needed 4. Follow up cultures. 5. DC Planning to [facility]dc today Rk Saavedra MD Oct 25, 2016 13:51
[2016-10-25 15:51] VITALS: BP 155/82
--- NOTE | 2016-10-25 18:44 | Pulmonology Progress Note ---
Assessment/Plan Problems: (1) Anasarca (2) Hydrocele in adult (3) HIV disease (4) Hepatitis C (5) Hyperglycemia Assessment/Plan iv antibiotics ID and endo notes reviewed improving might need placement Subjective ROS Limited/Unobtainable: No Interval Events: doing better Allergies: Coded Allergies: No Known Allergies (Unverified , 10/23/16) Objective Last 24 Hour Vital Signs Date Time Temp Pulse Resp B/P Pulse Ox O2 Delivery O2 Flow Rate FiO2 10/25/16 15:51 98.6 79 20 155/82 95 Room Air 10/25/16 12:12 97.7 77 20 151/79 95 Room Air 10/25/16 10:57 98.0 10/25/16 08:06 82 16 Room Air 21 10/25/16 07:42 98.0 83 20 128/82 95 Room Air 10/25/16 04:00 98.2 93 16 114/73 93 Room Air 10/25/16 00:00 97.5 96 16 108/65 94 Room Air 10/24/16 19:58 99.1 97 21 128/77 94 Room Air 10/24/16 19:00 88 16 Room Air 21 Intake and Output 10/24/16 10/25/16 19:00 07:00 Intake Total 1160 ml 1580 ml Output Total 240 ml 1700 ml Balance 920 ml -120 ml Intake Oral 360 ml 880 ml IV Total 800 ml 700 ml Output Urine Total 240 ml 1700 ml # Voids 1 5 Objective General Appearance: WD/WN, no apparent distress, alert EENT: PERRL/EOMI, normal ENT inspection, TMs normal, hair lose. Neck: non-tender, normal alignment, supple, normal inspection Cardiovascular: normal peripheral pulses, normal rate, regular rhythm, no murmur. Respiratory/Chest: CTA, crackles/rales, rhonchi , no wheezing Abdomen: normal bowel sounds, non tender, soft, no mass Extremities: normal range of motion, non-tender Neurologic: solar technician II-XII grossly normal, Moving all extremities. Skin: normal pigmentation, warm/dry Microbiology Date/Time Source Procedure Growth Status 10/23/16 13:35 Nasal Nares MRSA Culture - Final Staphylococcus Aureus - Mrsa Complete 10/23/16 13:35 Rectum 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 Complete Laboratory Tests 10/25/16 09:10: Sodium Level 136, Potassium Level 4.5, Chloride Level 96L, Carbon Dioxide Level 28, Anion Gap 12, Blood Urea Nitrogen 14, Creatinine 0.9, Estimat Glomerular Filtration Rate > 60, Glucose Level 364#H, Calcium Level 8.4L, Phosphorus Level 3.4, Magnesium Level 1.6L, Total Bilirubin 0.2, Aspartate Amino Transf (AST/SGOT ) 83H, Alanine Aminotransferase (ALT/SGPT) 48H, Alkaline Phosphatase 194H, Total Protein 7.0, Albumin 2.6L, Globulin 4.4, Albumin/Globulin Ratio 0.5L Current Medications Medications (Trade) Dose Ordered Sig/Jan Route PRN Reason Start Time Stop Time Status Last Admin Dose Admin Acetaminophen (Tylenol) 650 mg Q4H PRN ORAL fever 10/23/16 18:45 11/22/16 18:44 Al Hydroxide/Mg Hydroxide (Mylanta II) 30 ml Q6H PRN ORAL dyspepsia 10/23/16 18:45 11/22/16 18:44 Albuterol/ Ipratropium (DuoNeb 0.5-3(2.5)mg/3ml) 3 ml Q4H PRN HHN Shortness of Breath 10/23/16 18:45 10/28/16 18:44 Cephalexin (Keflex) 500 mg FOUR TIMES A DAY ORAL 10/24/16 18:00 10/31/16 17:59 10/25/16 18:07 Clonidine HCl (Catapres) 0.1 mg Q4H PRN ORAL sbp more than 160 10/23/16 18:45 11/22/16 18:44 Dextrose (Dextrose 50%) STAT PRN IV Hypoglycemia 10/24/16 06:30 11/23/16 06:29 Heparin Sodium (Porcine) (Heparin 5000 units/ml) 5,000 units EVERY 12 HOURS SUBQ 10/23/16 21:00 11/22/16 20:59 10/25/16 09:33 Insulin Aspart (NovoLOG) BEFORE MEALS AND HS SUBQ 10/23/16 21:00 11/22/16 20:59 10/25/16 11:49 Insulin Aspart (NovoLOG) 10 units NOVOTIAC SUBQ 10/25/16 11:50 11/24/16 11:49 10/25/16 11:49 Insulin Detemir (Levemir) 15 units BID SUBQ 10/25/16 09:00 11/24/16 08:59 10/25/16 18:18 Ketorolac Tromethamine (Toradol 30mg) 30 mg Q6H PRN IV moderate pain 4-6 10/23/16 18:45 10/28/16 18:44 Morphine Sulfate (Morphine Sulfate) 2 mg Q4H PRN IVP severe pain 7-10 10/23/16 18:45 10/30/16 18:44 10/25/16 18:09 Nitroglycerin (Ntg) 0.4 mg Q5M X 3 DOSES PRN SL Prn Chest Pain 10/23/16 18:45 11/22/16 18:44 Ondansetron HCl (Zofran) 4 mg Q6H PRN IVP Nausea & Vomiting 10/23/16 18:45 11/22/16 18:44 Polyethylene Glycol (Miralax) 17 gm HSPRN PRN ORAL Constipation 10/23/16 18:45 11/22/16 18:44 Temazepam (Restoril) 15 mg HSPRN PRN ORAL Insomnia 10/23/16 18:45 10/30/16 18:44 10/24/16 02:28 FELICITA CUNNINGHAM Oct 25, 2016 18:44
--- NOTE | 2016-10-25 19:09 | History and Physical Report ---
DATE OF ADMISSION: 10/23/2016 CHIEF COMPLAINT: Abdominal pain. HISTORY OF PRESENT ILLNESS: This is a 56-year-old gentleman with past medical history significant for diabetes type 2, poorly controlled, hypertension, HIV, substance abuse, and history of hepatitis C positive, who has been admitted to the emergency room complaining of abdominal pain. He stated that he is homeless and stated that he was at an outside hospital that he was receiving IV fluids that subsequently he was noted to have a enlarged testicular area and getting progressively worsening last couple of days. He called 911 and then was presented to the emergency room. Shortly after initial evaluation in the emergency room, the patient was noted to have uncontrolled diabetes with a blood glucose level of more than 500, 521 and then subsequently the patient was admitted to the hospital with uncontrolled diabetes as well as ascites and hydrocele. PAST MEDICAL HISTORY: As above. History of HIV, hepatitis C positive, diabetes type 2, and hypertension. PAST SURGICAL HISTORY: Significant for abdominal surgery due to the small bowel obstruction. Medications: Not compliance with his insulin. ALLERGIES: No known drug allergies. SOCIAL HISTORY: The patient is homeless. Polysubstance abuse. FAMILY HISTORY: Noncontributory. REVIEW OF SYSTEMS: Mostly as above. PHYSICAL EXAMINATION: GENERAL: The patient is awake, responsive, no acute distress. VITAL SIGNS: Temperature 99.5 degrees, pulse of 80, respirations 22, and blood pressure 120/77. HEENT: Pupils are reactive to light. Extraocular movement intact. NECK: Supple. No JVD. LUNGS: Good air entry. No wheezing or rales. HEART: S1 and S2. Regular rhythm. No gallops. ABDOMEN: Soft and nondistended. Midline surgical scar, well healed was noted. GENITOURINARY: Testicular edema was noted. No significant erythema or warmth. EXTREMITIES: There is +1 edema in bilateral lower extremities. NEUROLOGIC: Cranial nerves II through XII are grossly intact. Motor is 5/5 in all four extremities. LABORATORY AND DIAGNOSTIC DATA: On admission, significant for WBC of 5.9, hemoglobin of 10.8, hematocrit 33 and platelet count is 315,000. Sodium 139, potassium 4.1, chloride 96, bicarbonate 28, BUN 9, creatinine 0.9 and glucose of 541. AST of 118, ALT of 58 and alkaline phosphatase of 205. The patient's urine drug screen is positive for benzodiazepine as well as cocaine. Urinalysis, +4 glucose, otherwise negative. ASSESSMENT: 1. Uncontrolled diabetes. 2. Testicular edema. 3. Hepatitis C positive. 4. Hypertension. 5. Abnormal liver function. 6. Polysubstance abuse. 7. History of small bowel obstruction status post abdominal surgery. 8. Anemia. PLAN: Admit the patient to medical/surgical. We will followup with the gentle hydration and Dr. Colton Nunez from Endocrine and Dr. Rian Anderson from ID. We will follow up laboratory. Monitor blood glucose level and a social service consultation. DVT prophylaxis with heparin subcutaneous. CODE STATUS: Full Code. Rk Saavedra M.D. DR: RENAN JOB#: [id number] CC: LELO
[2016-10-25 19:37] VITALS: BP 157/97
[2016-10-26] VITALS: BP 113/72
[2016-10-26] MEDS: Morphine Sulfate 2mg/ml Inj IVP PRN (01:31)
[2016-10-26 04:00] VITALS: BP 113/72
[2016-10-26] MEDS: NovoLOG Insulin Flexpen SUBQ SCH ×3 (06:39→11:30)
--- NOTE | 2016-10-26 06:41 | General Progress Note ---
Assessment/Plan Problem List: (1) Hydrocele in adult ICD Codes: N43.3 - Hydrocele, unspecified SNOMED: 96113351201971, 613670691 (2) Hyperglycemia ICD Codes: R73.9 - Hyperglycemia, unspecified SNOMED: 43886502, 438632863 (3) Fluid retention ICD Codes: E87.70 - Fluid overload, unspecified SNOMED: 23296198, 941916459 Assessment/Plan fasting glucose improved - change Levemir to 13 units bid - change Novolog to 8 units ac tid - SSI Subjective Allergies: Coded Allergies: No Known Allergies (Unverified , 10/23/16) All Systems: reviewed and negative except above Subjective elevated glucose this morning he is constantly hungry Objective Last 24 Hour Vital Signs Date Time Temp Pulse Resp B/P Pulse Ox O2 Delivery O2 Flow Rate FiO2 10/26/16 04:00 97.9 85 18 113/72 98 Room Air 10/26/16 00:00 98.0 99 20 113/72 97 Room Air 10/25/16 19:37 97.9 69 20 157/97 95 Room Air 10/25/16 18:45 76 18 Room Air 10/25/16 15:51 98.6 79 20 155/82 95 Room Air 10/25/16 12:12 97.7 77 20 151/79 95 Room Air 10/25/16 10:57 98.0 10/25/16 08:06 82 16 Room Air 21 10/25/16 07:42 98.0 83 20 128/82 95 Room Air Intake and Output 10/25/16 10/26/16 19:00 07:00 Intake Total 580 ml 960 ml Output Total 350 ml 1800 ml Balance 230 ml -840 ml Intake Oral 480 ml 960 ml IV Total 100 ml Output Urine Total 350 ml 1800 ml # Voids 2 2 Laboratory Tests 10/25/16 09:10: Sodium Level 136, Potassium Level 4.5, Chloride Level 96L, Carbon Dioxide Level 28, Anion Gap 12, Blood Urea Nitrogen 14, Creatinine 0.9, Estimat Glomerular Filtration Rate > 60, Glucose Level 364#H, Calcium Level 8.4L, Phosphorus Level 3.4, Magnesium Level 1.6L, Total Bilirubin 0.2, Aspartate Amino Transf (AST/SGOT ) 83H, Alanine Aminotransferase (ALT/SGPT) 48H, Alkaline Phosphatase 194H, Total Protein 7.0, Albumin 2.6L, Globulin 4.4, Albumin/Globulin Ratio 0.5L Height (Feet): 6 Height (Inches): 0.00 Weight (Pounds): 230 General Appearance: no apparent distress EENT: pale conjunctivae Neck: normal alignment Cardiovascular: normal rate Respiratory/Chest: decreased breath sounds Abdomen: normal bowel sounds Pelvis: normal external exam Objective Item Value Date Time Bedside Blood Glucose 118 mg/dl 10/26/16 0637 Bedside Blood Glucose 222 mg/dl H 10/25/16 2043 Bedside Blood Glucose 85 mg/dl 10/25/16 1818 Bedside Blood Glucose 423 mg/dl H 10/25/16 1149 Bedside Blood Glucose 478 mg/dl H 10/25/16 1015 Bedside Blood Glucose 478 mg/dl H 10/25/16 0612 Current Medications Medications (Trade) Dose Ordered Sig/Jan Route PRN Reason Start Time Stop Time Status Last Admin Dose Admin Acetaminophen (Tylenol) 650 mg Q4H PRN ORAL fever 10/23/16 18:45 11/22/16 18:44 Al Hydroxide/Mg Hydroxide (Mylanta II) 30 ml Q6H PRN ORAL dyspepsia 10/23/16 18:45 11/22/16 18:44 Albuterol/ Ipratropium (DuoNeb 0.5-3(2.5)mg/3ml) 3 ml Q4H PRN HHN Shortness of Breath 10/23/16 18:45 10/28/16 18:44 Cephalexin (Keflex) 500 mg FOUR TIMES A DAY ORAL 10/24/16 18:00 10/31/16 17:59 10/25/16 20:40 Clonidine HCl (Catapres) 0.1 mg Q4H PRN ORAL sbp more than 160 10/23/16 18:45 11/22/16 18:44 Dextrose (Dextrose 50%) STAT PRN IV Hypoglycemia 10/24/16 06:30 11/23/16 06:29 Heparin Sodium (Porcine) (Heparin 5000 units/ml) 5,000 units EVERY 12 HOURS SUBQ 10/23/16 21:00 11/22/16 20:59 10/25/16 20:44 Influenza Virus Vaccine (Flu Vaccine) 0.5 ml ONCE ONCE IM 10/26/16 09:00 10/26/16 09:01 UNV Insulin Aspart (NovoLOG) BEFORE MEALS AND HS SUBQ 10/23/16 21:00 11/22/16 20:59 10/25/16 20:43 Insulin Aspart (NovoLOG) 10 units NOVOTIAC SUBQ 10/25/16 11:50 11/24/16 11:49 10/25/16 11:49 Insulin Detemir (Levemir) 15 units BID SUBQ 10/25/16 09:00 11/24/16 08:59 10/25/16 18:18 Ketorolac Tromethamine (Toradol 30mg) 30 mg Q6H PRN IV moderate pain 4-6 10/23/16 18:45 10/28/16 18:44 Morphine Sulfate (Morphine Sulfate) 2 mg Q4H PRN IVP severe pain 7-10 10/23/16 18:45 10/30/16 18:44 10/26/16 01:31 Nitroglycerin (Ntg) 0.4 mg Q5M X 3 DOSES PRN SL Prn Chest Pain 10/23/16 18:45 11/22/16 18:44 Ondansetron HCl (Zofran) 4 mg Q6H PRN IVP Nausea & Vomiting 10/23/16 18:45 11/22/16 18:44 Pneumococcal Polyvalent Vaccine (Pneumovax) 0.5 ml ONCE ONCE IM 10/26/16 09:00 10/26/16 09:01 UNV Polyethylene Glycol (Miralax) 17 gm HSPRN PRN ORAL Constipation 10/23/16 18:45 11/22/16 18:44 Temazepam (Restoril) 15 mg HSPRN PRN ORAL Insomnia 10/23/16 18:45 10/30/16 18:44 10/24/16 02:28 FREDY GALAVIZ Oct 26, 2016 06:41
[2016-10-26] MEDS ORDERED: NovoLOG Insulin Flexpen SUBQ SCH (06:45)
[2016-10-26 08:04] VITALS: BP 112/79
[2016-10-26] MEDS ORDERED: Levemir Flexpen SUBQ SCH (09:00)
[2016-10-26] MEDS: Heparin 5000 units/ml inj SUBQ SCH (09:46)
[2016-10-26] MEDS: Cephalexin 500mg cap ORAL SCH (09:46)
[2016-10-26] MEDS ORDERED: Pneumococcal Vaccine 25mcg/0.5ml IM ONE (10:00)
[2016-10-26] MEDS ORDERED: Influenza Virus Vaccine 0.5ml IM ONE (10:00)
--- NOTE | 2016-10-26 11:34 | Internal Med Progress Note ---
Subjective Physician Name Rk Saavedra Attending Physician Rk Saavedra MD Current Medications Medications (Trade) Dose Ordered Sig/Jan Route PRN Reason Start Time Stop Time Status Last Admin Dose Admin Acetaminophen (Tylenol) 650 mg Q4H PRN ORAL fever 10/23/16 18:45 11/22/16 18:44 Al Hydroxide/Mg Hydroxide (Mylanta II) 30 ml Q6H PRN ORAL dyspepsia 10/23/16 18:45 11/22/16 18:44 Albuterol/ Ipratropium (DuoNeb 0.5-3(2.5)mg/3ml) 3 ml Q4H PRN HHN Shortness of Breath 10/23/16 18:45 10/28/16 18:44 Cephalexin (Keflex) 500 mg FOUR TIMES A DAY ORAL 10/24/16 18:00 10/31/16 17:59 10/26/16 09:46 Clonidine HCl (Catapres) 0.1 mg Q4H PRN ORAL sbp more than 160 10/23/16 18:45 11/22/16 18:44 Dextrose (Dextrose 50%) STAT PRN IV Hypoglycemia 10/24/16 06:30 11/23/16 06:29 Heparin Sodium (Porcine) (Heparin 5000 units/ml) 5,000 units EVERY 12 HOURS SUBQ 10/23/16 21:00 11/22/16 20:59 10/26/16 09:46 Insulin Aspart (NovoLOG) BEFORE MEALS AND HS SUBQ 10/23/16 21:00 11/22/16 20:59 10/26/16 06:39 Insulin Aspart (NovoLOG) 8 units NOVOTIAC SUBQ 10/26/16 06:45 11/25/16 06:44 Insulin Detemir (Levemir) 13 units BID SUBQ 10/26/16 09:00 11/25/16 08:59 10/26/16 09:46 Ketorolac Tromethamine (Toradol 30mg) 30 mg Q6H PRN IV moderate pain 4-6 10/23/16 18:45 10/28/16 18:44 Morphine Sulfate (Morphine Sulfate) 2 mg Q4H PRN IVP severe pain 7-10 10/23/16 18:45 10/30/16 18:44 10/26/16 01:31 Nitroglycerin (Ntg) 0.4 mg Q5M X 3 DOSES PRN SL Prn Chest Pain 10/23/16 18:45 11/22/16 18:44 Ondansetron HCl (Zofran) 4 mg Q6H PRN IVP Nausea & Vomiting 10/23/16 18:45 11/22/16 18:44 Polyethylene Glycol (Miralax) 17 gm HSPRN PRN ORAL Constipation 10/23/16 18:45 11/22/16 18:44 Temazepam (Restoril) 15 mg HSPRN PRN ORAL Insomnia 10/23/16 18:45 10/30/16 18:44 10/24/16 02:28 Allergies: Coded Allergies: No Known Allergies (Unverified , 10/23/16) Subjective awake, alert, responsive. feeling good. Objective Last Vital Signs Date Time Temp Pulse Resp B/P Pulse Ox O2 Delivery O2 Flow Rate FiO2 10/26/16 08:04 96.7 89 19 112/79 94 Room Air 10/25/16 08:06 21 Microbiology Date/Time Source Procedure Growth Status 10/23/16 13:35 Nasal Nares MRSA Culture - Final Staphylococcus Aureus - Mrsa Complete 10/23/16 13:35 Rectum 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 Complete Intake and Output 10/25/16 10/26/16 19:00 07:00 Intake Total 580 ml 960 ml Output Total 350 ml 1800 ml Balance 230 ml -840 ml Intake Oral 480 ml 960 ml IV Total 100 ml Output Urine Total 350 ml 1800 ml # Voids 2 2 Objective GENERAL: No apparent distress. Nontoxic appearing HEAD: PERRLA, EOMI NECK: Supple no JVD CARDIOVASCULAR: Regular rate and rhythm. No murmurs. PULMONARY: Clear to auscultation bilaterally. ABDOMEN: Bowel sounds present. Soft, nondistended, and nontender. Well-healed surgical scars. GENITOURINARY: Testicular swelling. No significant erythema or warmth. EXTREMITIES: +2 Edema in the lower extremities. Assessment/Plan Assessment/Plan 1. Testicular swelling, possible mild cellulitis. 2. Human immunodeficiency virus and probable acquired immune deficiency syndrome, not on treatment with unknown CD4 count. 3. Elevated liver function tests with history of hepatitis C, never treated. 4. Periodontal disease. 5. polysubstance abuse 6. Uncontrolled Diabetes type 2. 7. Homelessness. 8. MRSA colonization. PLAN: 1. DC Keflex 2. discuss with RN 3. Lasix as needed 4. Follow up cultures. 5. DC Planning to custodial / Home today Rk Saavedra MD Oct 26, 2016 11:34
[2016-10-26 11:44] VITALS: BP 115/84
--- NOTE | 2016-10-26 12:07 | Infectious Diseases Prog Note ---
Assessment/Plan Assessment/Plan ASSESSMENT: 56 y/o male with: // Testicular swelling, possible mild cellulitis // HIV, probable AIDS, not on cART, unknown CD4 // Elevated LFTs, h/o HCV // Periodontal disease // Afebrile without leukocytosis // UDS(+) BZD, cocaine // DM2 // Homeless // NKDA // Full Code PLAN: - noted keflex was DCed - check testicular US - outpt referral for HIV, HCV Rx - monitor CBC, temperatures - monitor BMP possible DC to SNF Subjective Constitutional: Denies: anorexia, chills, drenching sweats, fatigue, fever, no symptoms, other Allergies: Coded Allergies: No Known Allergies (Unverified , 10/23/16) Objective Vital Signs Last 24 Hour Vital Signs Date Time Temp Pulse Resp B/P Pulse Ox O2 Delivery O2 Flow Rate FiO2 10/26/16 11:44 97.0 88 20 115/84 95 Room Air 10/26/16 08:04 96.7 89 19 112/79 94 Room Air 10/26/16 07:45 85 18 Room Air 10/26/16 04:00 97.9 85 18 113/72 98 Room Air 10/26/16 00:00 98.0 99 20 113/72 97 Room Air 10/25/16 19:37 97.9 69 20 157/97 95 Room Air 10/25/16 18:45 76 18 Room Air 10/25/16 15:51 98.6 79 20 155/82 95 Room Air 10/25/16 12:12 97.7 77 20 151/79 95 Room Air Height (Feet): 6 Height (Inches): 0.00 Weight (Pounds): 230 HEENT: atraumatic Respiratory/Chest: lungs clear Cardiovascular: normal rate Abdomen: soft, non tender Microbiology Date/Time Source Procedure Growth Status 10/23/16 13:35 Nasal Nares MRSA Culture - Final Staphylococcus Aureus - Mrsa Complete 10/23/16 13:35 Rectum 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 Complete Current Medications Medications (Trade) Dose Ordered Sig/Jan Route PRN Reason Start Time Stop Time Status Last Admin Dose Admin Acetaminophen (Tylenol) 650 mg Q4H PRN ORAL fever 10/23/16 18:45 11/22/16 18:44 Al Hydroxide/Mg Hydroxide (Mylanta II) 30 ml Q6H PRN ORAL dyspepsia 10/23/16 18:45 11/22/16 18:44 Albuterol/ Ipratropium (DuoNeb 0.5-3(2.5)mg/3ml) 3 ml Q4H PRN HHN Shortness of Breath 10/23/16 18:45 10/28/16 18:44 Cephalexin (Keflex) 500 mg FOUR TIMES A DAY ORAL 10/24/16 18:00 10/31/16 17:59 10/26/16 09:46 Clonidine HCl (Catapres) 0.1 mg Q4H PRN ORAL sbp more than 160 10/23/16 18:45 11/22/16 18:44 Dextrose (Dextrose 50%) STAT PRN IV Hypoglycemia 10/24/16 06:30 11/23/16 06:29 Heparin Sodium (Porcine) (Heparin 5000 units/ml) 5,000 units EVERY 12 HOURS SUBQ 10/23/16 21:00 11/22/16 20:59 10/26/16 09:46 Insulin Aspart (NovoLOG) BEFORE MEALS AND HS SUBQ 10/23/16 21:00 11/22/16 20:59 10/26/16 06:39 Insulin Aspart (NovoLOG) 8 units NOVOTIAC SUBQ 10/26/16 06:45 11/25/16 06:44 Insulin Detemir (Levemir) 13 units BID SUBQ 10/26/16 09:00 11/25/16 08:59 10/26/16 09:46 Ketorolac Tromethamine (Toradol 30mg) 30 mg Q6H PRN IV moderate pain 4-6 10/23/16 18:45 10/28/16 18:44 Morphine Sulfate (Morphine Sulfate) 2 mg Q4H PRN IVP severe pain 7-10 10/23/16 18:45 10/30/16 18:44 10/26/16 01:31 Nitroglycerin (Ntg) 0.4 mg Q5M X 3 DOSES PRN SL Prn Chest Pain 10/23/16 18:45 11/22/16 18:44 Ondansetron HCl (Zofran) 4 mg Q6H PRN IVP Nausea & Vomiting 10/23/16 18:45 11/22/16 18:44 Polyethylene Glycol (Miralax) 17 gm HSPRN PRN ORAL Constipation 10/23/16 18:45 11/22/16 18:44 Temazepam (Restoril) 15 mg HSPRN PRN ORAL Insomnia 10/23/16 18:45 10/30/16 18:44 10/24/16 02:28 ELISEO WISDOM M.D. Oct 26, 2016 12:07
--- NOTE | 2016-10-27 10:51 | Cardiology Report ---
APPROVED REPORT EXAM: Two-dimensional and M-mode echocardiogram with Doppler and color Doppler. INDICATION Tachycardia M-Mode DIMENSIONS IVSd1.0 (0.7-1.1cm)Left Atrium (MM)3.6 (1.6-4.0cm) LVDd3.8 (3.5-5.6cm)Aortic Root3.4 (2.0-3.7cm) PWd.8 (0.7-1.1cm)Aortic Cusp Exc.2.0 (1.5-2.0cm) LVDs1.7 (2.5-4.0cm) PWs1.1 cm Normal left ventricular chamber size, systolic function and wall motion. Left ventricular ejection fraction estimated to be 65-70 %. No evidence of ventricular hypertrophy. No evidence of pericardial fat or effusion. All other cardiac chamber sizes are within normal limits. Mild focal aortic valve sclerosis with adequate cusp excursion. Mildly thickened mitral valve leaflets with normal excursion. Mild mitral annulus and aortic root calcification. Pulmonic valve not well visualized. Normal tricuspid valve structure. IVC at normal size with physiologic collapse. A color flow and spectral Doppler study was performed and revealed: No aortic regurgitation. Trace mitral regurgitation. Mitral inflow velocities indicates normal left ventricular diastolic function. Trace tricuspid regurgitation. Tricuspid systolic velocities suggests peak right ventricular systolic pressure of 14 mmHg. Trace pulmonic regurgitation present.
--- NOTE | 2016-10-27 10:52 | Diagnostic Imaging Report ---
Clinical history: Cough. Technique: Portable AP chest radiograph was obtained. Comparison: None Findings: Lung volumes are low. Ill-defined hazy opacity in the left lung base may represent atelectasis or pneumonia. No overt vascular congestion is identified. There is no pleural effusion or pneumothorax. The cardiac and mediastinal silhouettes are normal in appearance. The bony thorax is unremarkable. Impression: Low lung volumes with ill-defined left basilar opacity suspicious for atelectasis or developing pneumonia. Please correlate with clinical parameters and consider followup PA and lateral chest radiographs in full inspiration after therapy to ensure resolution.
--- NOTE | 2016-10-27 12:24 | Cardiology Report ---
APPROVED REPORT EKG Measurement Heart [id number] Unusual P axis, possible ectopic atrial tachycardia Abnormal ECG
--- NOTE | 2016-10-28 08:29 | Discharge Summary ---
Discharge Summary Hospital Course Date of Admission Oct 23, 2016 at 13:17 Date of Discharge Oct 26, 2016 at 12:40 Admitting Diagnosis Fluid retention HPI Lashonda Cabrera is a 56 year old male who was admitted on Oct 23, 2016 at 13:17 for Fluid Retention Hospital Course dc summary dictated # [id number] Discharge Medications New Medications: Insulin Aspart (Novolog Flexpen) 100 Unit/1 Ml Insuln.pen 10 UNITS SUBQ NOVOTIAC for 30 Days, EA Insulin Detemir (Levemir Flexpen) 100 Unit/1 Ml Insuln.pen 15 UNITS SUBQ BID for 30 Days, EA Discharge Condition Upon Discharge: stable Discharge Disposition [facility] Discharge Diagnoses: Discharge Instructions Discharge Instructions Special Instructions I have been assigned to complete a D/C Summary on this account. I was not involved in the patient management Rere Grossman NP (Vanchtein) Oct 28, 2016 08:29
--- NOTE | 2016-10-28 23:29 | Discharge Summary 2 SIG ---
DATE OF ADMISSION: 10/23/2016 DATE OF DISCHARGE: 10/26/2016 REASON FOR HOSPITALIZATION: 56-year-old homeless male with HIV status, was brought to the emergency department complaining of abdominal pain, testicular swelling, and inability to walk. The patient smelled of alcohol. He was a poor historian. However, he denied chest pain and complained of mild shortness of breath. No nausea. No vomiting. No fevers. No chills. Workup in the emergency department revealed blood sugar of 521. The patient had no leukocytosis, afebrile, and mild anemia. Physical exam revealed generalized edema. Lasix and insulin given in the emergency department. Urinalysis revealed no signs of infection, +4 glucose, but no evidence of ketones. Urine toxicology screen was positive for cocaine and benzodiazepine. Chest x-ray revealed atelectasis. The patient was admitted to Med/Surg floor for further management. ADMITTING DIAGNOSES: 1. Ascites. 2. Testicular swelling, likely hydrocele. 3. Anasarca. 4. Hyperglycemia. 5. Diabetes out of control. 6. Human immunodeficiency virus status. 7. Elevated liver function test. HOSPITAL STAY: The patient was admitted to Med/Surg floor. The patient was on the IV fluids. Endocrinology and ID consult were requested. Social service evaluation was requested for placement. Blood sugar was managed with short and long acting insulin, and sliding scale of insulin as needed. Hemoglobin A1c - 15.9, not at goal. The patient was counseled to follow up routinely with a primary doctor in order to optimize anti-glycemic regimen and achieve better glycemic control. Echocardiogram revealed preserved ejection fraction of 65% to 70% and right ventricular systolic pressure of 14. No evidence of left ventricular hypertrophy. Diuresis on as needed basis, Infectious Disease doctor was called for possible testicular cellulitis. The patient was started on empiric Keflex, while in the hospital. No leukocytosis, no fever. Antibiotic was discontinued prior to discharge. ID recommended outpatient followup for human immunodeficiency virus status management since the patient was not on any highly active anti-retroviral therapy as well as the hepatitis C treatment as outpatient with GI specialist. The patient with known hepatitis C status. LFTs initially elevated, trending down. Patient with past history of small bowel obstruction and abdominal surgery. No complaint of abdominal pain, tolerated diet, no nausea, no vomiting. Hemoglobin and hematocrit at baseline. No trend down. DVT prophylaxis provided. Social service arranged placement to [facility]. Supervisor Sunglasses on abstinence from street drugs and alcohol. DISCHARGE MEDICATIONS: See medication reconciliation list. Prescription provided. DISCHARGE DIAGNOSES: 1. Hyperglycemia. 2. Diabetes, out of control. 3. Anasarca. 4. Testicular swelling, likely hydrocele. 5. Possible testicular cellulitis, status post treatment. 6. Ascites. 7. Human immunodeficiency virus status. 8. Hepatitis C. 9. Elevated liver function tests. 10. Homeless. 11. Polysubstance abuse. 12. Anemia. DISCHARGE INSTRUCTIONS: The patient was [facility] to [facility]. Follow up with the primary medical doctor. Reinforce routine follow up with primary medical doctor for glycemic control in order to bring blood sugar under the goal. Recommended follow up with ID for HIV treatment and GI for hepatitis C treatment as outpatient. Rk Saavedra M.D. I have been assigned to dictate discharge summary on this account and I was not involved in the patient's management. eRre Ernandezjammie [email or web address] DR: LEA JOB#: [id number] CC: LELO
--- NOTE | 2016-10-29 16:29 | Diagnostic Imaging Report ---
Indications: Swelling Technique: Grayscale and duplex images of the scrotum. We attempted to recall the patient for additional images, but the patient had already left the hospital and left no contact information Comparison:None Findings:The right testicle measures 4cm in length. It demonstrates normal echogenicity. Normal Doppler flow. Small cysts are seen within the epididymal head and tail. A 2 mm cyst is seen within the testicular parenchyma. There is a small hydrocele The left testicle measures 4.6 cm in length. It demonstrates normal echogenicity and normal Doppler flow. Normal epididymis. There is a hydrocele. The epididymal head is not definitely visualized Numerous sizable extratesticular cystic spaces are demonstrated. It is unclear based on the available images whether these represent a loculated hydrocele versus multiple epididymal cysts. A 4 mm cyst with peripheral calcification is seen within the testicular parenchyma. Other small cysts and calcifications are also demonstrated. Impression: Multiple extratesticular cysts and left hemiscrotum. Uncertain as to whether these represent multiseptated hydrocele persists multicystic epididymal head. Unfortunately, attempts every: The patient for additional imaging were not successful Parenchymal calcification and cysts within the left testicle Bilateral hydroceles No evidence of testicular torsion or epididymitis or orchitis Small right testicular cyst Right epididymal cysts versus spermatocele
== END 2016-10-26 12:40 | disposition home or self-care (01) | DRG 501 ==
LOC: EDBD 10:50 → EMR 11:10 → 4W 13:17 → EDBEDREQ 13:45
DX: N49.8 Inflammatory disorders of other specified male genital organs (principal); R18.8 Other ascites; E11.65 Type 2 diabetes mellitus with hyperglycemia; N43.3 Hydrocele, unspecified; Z59.0 Homelessness; Z23 Encounter for immunization; D64.9 Anemia, unspecified; N50.89 Other specified disorders of the male genital organs; B19.20 Unspecified viral hepatitis C without hepatic coma; Z91.14 Patient's other noncompliance with medication regimen; I10 Essential (primary) hypertension; K05.6 Periodontal disease, unspecified; F14.10 Cocaine abuse, uncomplicated; F19.10 Other psychoactive substance abuse, uncomplicated; Z22.322 Carrier or suspected carrier of Methicillin resistant Staphylococcus aureus
CPT/HCPCS: 36415; 71010; 76870; 80053; 80061; 80300; 81003; 82962; 83036; 83735; 84100; 84443; 85025; 87081; 90732; 93005; 93306; 94664; J1815; J8499; Q2036; S5561

== ENCOUNTER 2018-07-10 17:52 | Inpatient (IN) | payer MEDICAID, OTHER ==
[~2018-07-10] VITALS: Ht 182.9 cm; Wt 82.7 kg
[~2018-07-10 17:52] MED LIST: LEVEMIR FL100 UNIT/1 SUBQ; NOVOLOG100 UNITS1 SUBQ; UNOBMED
[2018-07-10 17:55] VITALS: BP 148/87
[2018-07-10] MEDS ORDERED: Isovue-300 100ml vial INJ PRN (18:15)
--- NOTE | 2018-07-10 18:16 | Emergency Room Report ---
History of Present Illness General Chief Complaint: Abdominal Pain Source: Patient, Medical Record, EMS Present Illness HPI Patient is a 58-year-old male brought in by EMS after increased abdominal discomfort. Patient reports having had generalized abdominal pain. He reports having increased pain to the entire abdomen. Patient to prior surgeries for bowel obstruction. The he reports having some episodes of diarrhea recently. He denies any fever. He reports having vomited about a week ago. He denies any dysuria or bloody stools.He does not recall most recent bowel movement. Allergies: Coded Allergies: No Known Allergies (Unverified , 10/23/16) Patient History Past Medical History: see triage record Reviewed Nursing Documentation: PMH: Agreed; PSxH: Agreed Nursing Documentation-PMH Past Medical History: No History, Except For Hx Hypertension: Yes Hx Diabetes: Yes Hx Cancer: No Hx Gastrointestinal Problems: Yes - GERD History Of Psychiatric Problem: Yes - schizophrenia Hx Neurological Problems: No Review of Systems All Other Systems: negative except mentioned in HPI Physical Exam Vital Signs Date Time Temp Pulse Resp B/P (MAP) Pulse Ox O2 Delivery O2 Flow Rate FiO2 07/10/18 17:45 98.1 80 18 138/90 100 Room Air Sp02 EP Interpretation: reviewed, normal General Appearance: normal inspection, well appearing, no apparent distress, alert, GCS 15 Head: atraumatic ENT: normal ENT inspection, hearing grossly normal, normal voice Neck: normal inspection, full range of motion, supple, no bony tend Respiratory: normal inspection, lungs clear, normal breath sounds, no respiratory distress, no retraction, no wheezing Cardiovascular #1: regular rate, rhythm, no edema Gastrointestinal: normal inspection, normal bowel sounds, soft, no guarding, no hernia, tenderness - mild diffuse Genitourinary: no CVA tenderness Musculoskeletal: normal inspection, back normal, normal range of motion Neurologic: normal inspection, alert, oriented x3, responsive, woodenware assembler III-XII nml as tested, speech normal Psychiatric: normal inspection, judgement/insight normal, mood/affect normal Skin: normal inspection, normal color, no rash Medical Decision Making Diagnostic Impression: Primary Impression: Abdominal pain Additional Impressions: Hepatitis C HIV disease Urinary tract infection ER Course Patient presented for abdominal pain. Differential diagnoses included ischemic bowel, appendicitis, perforated viscus, abdominal aortic aneurysm, inferior myocardial infarction, viral gastroenteritis. Because of complexity of patient' s case laboratory testing and imaging studies were ordered. The patient was noted to have the EKG interpreted by me with the normal sinus rhythm with incomplete right bundle-branch block with nonspecific ST depression. The patient's initial laboratory testing was unremarkable.Patient was noted to have some evidence of urinary infection.The patient given IV pain medications. . The CT abdomen and pelvis read by radiology showed no acute findings Patient was discussed with Dr. Brain Chang for inpatient management due to abdominal pain. Labs Test 07/10/18 18:55 07/10/18 19:10 White Blood Count 6.0 K/UL (4.8-10.8) Red Blood Count 3.75 M/UL (4.70-6.10) Hemoglobin 11.8 G/DL (14.2-18.0) Hematocrit 33.6 % (42.0-52.0) Mean Corpuscular Volume 90 FL (80-99) Mean Corpuscular Hemoglobin 31.4 PG (27.0-31.0) Mean Corpuscular Hemoglobin Concent 35.0 G/DL (32.0-36.0) Red Cell Distribution Width 12.6 % (11.6-14.8) Platelet Count 212 K/UL (150-450) Mean Platelet Volume 5.6 FL (6.5-10.1) Neutrophils (%) (Auto) 43.1 % (45.0-75.0) Lymphocytes (%) (Auto) 44.0 % (20.0-45.0) Monocytes (%) (Auto) 6.0 % (1.0-10.0) Eosinophils (%) (Auto) 5.8 % (0.0-3.0) Basophils (%) (Auto) 1.1 % (0.0-2.0) Sodium Level 135 MMOL/L (136-145) Potassium Level 3.8 MMOL/L (3.5-5.1) Chloride Level 102 MMOL/L (98-107) Carbon Dioxide Level 26 MMOL/L (21-32) Anion Gap 7 mmol/L (5-15) Blood Urea Nitrogen 13 mg/dL (7-18) Creatinine 0.9 MG/DL (0.55-1.30) Estimat Glomerular Filtration Rate > 60 mL/min (>60) Glucose Level 176 MG/DL (74-106) Calcium Level 9.1 MG/DL (8.5-10.1) Total Bilirubin 0.4 MG/DL (0.2-1.0) Aspartate Amino Transf (AST/SGOT) 75 U/L (15-37) Alanine Aminotransferase (ALT/SGPT) 74 U/L (12-78) Alkaline Phosphatase 101 U/L (46-116) Troponin I 0.000 ng/mL (0.000-0.056) Total Protein 9.2 G/DL (6.4-8.2) Albumin 3.4 G/DL (3.4-5.0) Globulin 5.8 g/dL Albumin/Globulin Ratio 0.6 (1.0-2.7) Lipase 121 U/L (73-393) Urine Color Pale yellow Urine Appearance Slightly cloudy Urine pH 7 (4.5-8.0) Urine Specific [place] 1.010 (1.005-1.035) Urine Protein 3+ (NEGATIVE) Urine Glucose (UA) 3+ (NEGATIVE) Urine Ketones Negative (NEGATIVE) Urine Blood Negative (NEGATIVE) Urine Nitrite Negative (NEGATIVE) Urine Bilirubin Negative (NEGATIVE) Urine Urobilinogen 1 MG/DL (0.0-1.0) Urine Leukocyte Esterase 1+ (NEGATIVE) Urine RBC 0 /HPF (0 - 0) Urine WBC 5-10 /HPF (0 - 0) Urine Squamous Epithelial Cells Few /LPF (NONE/OCC) Urine Bacteria Few /HPF (NONE) Urine Mucus Moderate /LPF (NONE/OCC) Urine Opiates Screen Negative (NEGATIVE) Urine Barbiturates Screen Negative (NEGATIVE) Phencyclidine (PCP) Screen Negative (NEGATIVE) Urine Amphetamines Screen Negative (NEGATIVE) Urine Benzodiazepines Screen Negative (NEGATIVE) Urine Cocaine Screen Negative (NEGATIVE) Urine Marijuana (THC) Screen Negative (NEGATIVE) EKG Diagnostic Results Rate: normal - 78 Rhythm: NSR ST Segments: no acute changes Last Vital Signs Date Time Temp Pulse Resp B/P (MAP) Pulse Ox O2 Delivery O2 Flow Rate FiO2 07/10/18 17:55 74 16 Room Air 07/10/18 17:55 98.1 148/87 98 Status: improved Disposition: HOME, SELF-CARE Condition: Stable Referrals: Brain Chang DO (PCP) Dago Platt MD Jul 10, 2018 18:16
[2018-07-10] MEDS ORDERED: Morphine Sulfate 4mg/ml Inj (IV/IM USE ONLY) IVP ONE (18:30)
[2018-07-10 19:19] LABS: APPEARANCE,URINE SLIGHTLY CLOUDY; BILIRUBIN, URINE NEGATIVE (NEGATIVE); COLOR,URINE PALE YELLOW; GLUCOSE, URINE (UA) 3+ (NEGATIVE); KETONES,URINE NEGATIVE (NEGATIVE); LEUKOCYTE ESTERASE ,URINE 1+ (NEGATIVE); NITRITE,URINE NEGATIVE (NEGATIVE); PH,URINE 7 (4.5-8.0); PROTEIN,URINE 3+ (NEGATIVE); UROBILINOGEN,URINE 1 MG/DL (0.0-1.0)
[2018-07-10 19:19] LABS: BASOPHILS % (AUTO) 1.1 % (0.0-2.0); EOSINOPHILS % (AUTO) 5.8 % (0.0-3.0); HEMATOCRIT 33.6 % (42.0-52.0); HEMOGLOBIN 11.8 G/DL (14.2-18.0); MEAN CORPUSCULAR VOLUME 90 FL (80-99); NEUTROPHILS % (AUTO) 43.1 % (45.0-75.0); PLATELET COUNT 212 K/UL (150-450); RED BLOOD COUNT 3.75 M/UL (4.70-6.10); RED CELL DISTRIBUTION WIDTH 12.6 % (11.6-14.8)
[2018-07-10 19:55] LABS: ANION GAP 7 mmol/L (5-15); BLOOD UREA NITROGEN 13 mg/dL (7-18); CALCIUM 9.1 MG/DL (8.5-10.1); CARBON DIOXIDE 26 MMOL/L (21-32); CHLORIDE 102 MMOL/L (98-107); CREATININE 0.9 MG/DL (0.55-1.30); POTASSIUM 3.8 MMOL/L (3.5-5.1); SODIUM 135 MMOL/L (136-145)
[2018-07-10 20:00] LABS: ALANINE AMINOTRANSFERASE 74 U/L (12-78); ALBUMIN 3.4 G/DL (3.4-5.0); ALBUMIN/GLOBULIN RATIO 0.6 (1.0-2.7); ALKALINE PHOSPHATASE 101 U/L (46-116); ASPARTATE AMINO TRANSFERASE 75 U/L (15-37); BILIRUBIN,TOTAL 0.4 MG/DL (0.2-1.0)
[2018-07-10 21:00] VITALS: BP 113/80
--- NOTE | 2018-07-10 21:20 | Diagnostic Imaging Report ---
EXAM: CT Abdomen and Pelvis With Intravenous Contrast CLINICAL HISTORY: ABD PAIN TECHNIQUE: Axial computed tomography images of the abdomen and pelvis with intravenous contrast. CTDI is 0.15, 14.56 mGy and DLP is 774 mGy-cm. One or more of the following dose reduction techniques were used: automated exposure control, adjustment of the mA and/or kV according to patient size, use of iterative reconstruction technique. COMPARISON: No relevant prior studies available. FINDINGS: Lung bases: Dependent atelectasis. ABDOMEN: Liver: Unremarkable. Gallbladder and bile ducts: Unremarkable. Pancreas: Unremarkable. Spleen: Unremarkable. Adrenals: Unremarkable. Kidneys and ureters: Scarring is noted within left kidney. Bilateral renal cysts. No hydronephrosis. Stomach and bowel: Unremarkable. PELVIS: Appendix: Appendix is unremarkable. Bladder: Unremarkable. Reproductive: Unremarkable as visualized. ABDOMEN and PELVIS: Intraperitoneal space: Unremarkable. Bones/joints: No acute fracture. No dislocation. Soft tissues: Unremarkable. Vasculature: Vascular calcifications. No abdominal aortic aneurysm. Lymph nodes: Unremarkable. IMPRESSION: No acute findings.
[2018-07-10] MEDS ORDERED: Cephalexin 500mg cap ORAL ONE (21:45)
[2018-07-10 23:58] VITALS: BP 116/74
[2018-07-11] MEDS ORDERED: METFORMIN HCL1000 M1 ORAL (00:11)
[2018-07-11] MEDS ORDERED: ASPIRIN81 MG ORAL (00:11)
[2018-07-11] MEDS ORDERED: FLEET ENEMA133 ML RECTAL (00:11)
[2018-07-11] MEDS ORDERED: DOCUSATE SODIU250 MG ORAL (00:11)
[2018-07-11] MEDS ORDERED: OMEPRAZOLE20 M2 ORAL (00:11)
[2018-07-11] MEDS ORDERED: ACETAMINOPHEN325 M1 ORAL (00:11)
[2018-07-11] MEDS ORDERED: CRANBERRY500 M3 PO (00:11)
[2018-07-11] MEDS ORDERED: LEXAPRO20 MG ORAL (00:11)
[2018-07-11] MEDS ORDERED: TYLENOL EXTRA500 MG ORAL (00:11)
[2018-07-11] MEDS ORDERED: MILK OF MA400 MG/51 ORAL (00:11)
[2018-07-11] MEDS ORDERED: QUETIAPINE FUM200 MG ORAL (00:11)
[2018-07-11] MEDS ORDERED: LANTUS SOL100 UNIT/1 SUBQ (00:11)
[2018-07-11] MEDS ORDERED: TRAZODONE HCL50 MG ORAL (00:11)
[2018-07-11] MEDS ORDERED: Milk of Magnesia 30ml Ud ORAL PRN (04:00)
[2018-07-11] MEDS ORDERED: Fleet's Enema 133ml RECTAL PRN (04:00)
[2018-07-11] MEDS ORDERED: Acetaminophen 500mg (ES) tab ORAL PRN (04:00)
[2018-07-11] MEDS ORDERED: Morphine Sulfate 2mg/ml Inj IVP PRN (04:00)
[2018-07-11 04:30] VITALS: BP 119/82
[2018-07-11] MEDS: D5 1/2NS 1,000 ML IV SCH ×2 (04:35→21:31)
[2018-07-11] MEDS: Morphine Sulfate 2mg/ml Inj IVP PRN ×5 (04:36→23:11)
[2018-07-11 07:32] LABS: ANION GAP 5 mmol/L (5-15); BLOOD UREA NITROGEN 10 mg/dL (7-18); CALCIUM 8.5 MG/DL (8.5-10.1); CARBON DIOXIDE 26 MMOL/L (21-32); CHLORIDE 101 MMOL/L (98-107); CREATININE 0.8 MG/DL (0.55-1.30); POTASSIUM 3.8 MMOL/L (3.5-5.1); SODIUM 132 MMOL/L (136-145)
--- NOTE | 2018-07-11 07:44 | General Progress Note ---
Assessment/Plan Problem List: (1) Anemia ICD Codes: D64.9 - Anemia, unspecified SNOMED: 743394121 (2) HIV disease ICD Codes: B20 - Human immunodeficiency virus [HIV] disease SNOMED: 77973720 (3) Hepatitis C ICD Codes: B19.20 - Unspecified viral hepatitis C without hepatic coma SNOMED: 25093600 (4) Abdominal pain ICD Codes: R10.9 - Unspecified abdominal pain SNOMED: 95852817 Assessment/Plan ? cause for abd pain non specific neg CT for an acute finding start clears repeat labs ppi pain control fu Subjective ROS Limited/Unobtainable: Yes Allergies: Coded Allergies: No Known Allergies (Unverified , 10/23/16) Subjective abd pain Objective Last 24 Hour Vital Signs Date Time Temp Pulse Resp B/P (MAP) Pulse Ox O2 Delivery O2 Flow Rate FiO2 07/11/18 05:06 97.6 07/11/18 04:30 97.6 71 18 119/82 (94) 98 07/11/18 00:32 Room Air 07/10/18 23:58 97.7 63 18 116/74 (88) 95 07/10/18 23:50 98.2 73 20 119/84 98 Room Air 71 07/10/18 21:00 98.7 71 18 113/80 98 Room Air 07/10/18 17:55 74 16 Room Air 07/10/18 17:55 98.1 74 16 148/87 98 Room Air 07/10/18 17:45 98.1 80 18 138/90 100 Room Air Intake and Output 07/10/18 07/11/18 19:00 07:00 Intake Total 120 ml Output Total 800 ml Balance -680 ml Intake Oral 0 ml IV Total 120 ml Output Urine Total 800 ml Laboratory Tests 07/10/18 18:55: White Blood Count 6.0, Red Blood Count 3.75L, Hemoglobin 11.8L, Hematocrit 33.6L , Mean Corpuscular Volume 90, Mean Corpuscular Hemoglobin 31.4H, Mean Corpuscular Hemoglobin Concent 35.0, Red Cell Distribution Width 12.6, Platelet Count 212, Mean Platelet Volume 5.6L, Neutrophils (%) (Auto) 43.1L, Lymphocytes (%) (Auto) 44.0, Monocytes (%) (Auto) 6.0, Eosinophils (%) (Auto) 5.8H, Basophils (%) (Auto) 1.1, Sodium Level 135L, Potassium Level 3.8, Chloride Level 102, Carbon Dioxide Level 26, Anion Gap 7, Blood Urea Nitrogen 13, Creatinine 0.9, Estimat Glomerular Filtration Rate > 60, Glucose Level 176H, Calcium Level 9.1, Total Bilirubin 0.4, Aspartate Amino Transf (AST/SGOT) 75H, Alanine Aminotransferase (ALT/SGPT) 74, Alkaline Phosphatase 101, Troponin I 0.000, Total Protein 9.2H, Albumin 3.4, Globulin 5.8, Albumin/Globulin Ratio 0.6L, Lipase 121 07/10/18 19:10: Urine Color Pale yellow, Urine Appearance Slightly cloudy, Urine pH 7, Urine Specific [place] 1.010, Urine Protein 3+H, Urine Glucose (UA) 3+H, Urine Ketones Negative, Urine Blood Negative, Urine Nitrite Negative, Urine Bilirubin Negative, Urine Urobilinogen 1H, Urine Leukocyte Esterase 1+H, Urine RBC 0, Urine WBC 5-10H, Urine Squamous Epithelial Cells Few, Urine Bacteria Few, Urine Mucus ModerateH, Urine Opiates Screen Negative, Urine Barbiturates Screen Negative, Phencyclidine (PCP) Screen Negative, Urine Amphetamines Screen Negative, Urine Benzodiazepines Screen Negative, Urine Cocaine Screen Negative, Urine Marijuana (THC) Screen Negative 07/11/18 06:00: Sodium Level 132L, Potassium Level 3.8, Chloride Level 101, Carbon Dioxide Level 26, Anion Gap 5, Blood Urea Nitrogen 10, Creatinine 0.8, Estimat Glomerular Filtration Rate > 60, Glucose Level 157H, Calcium Level 8.5 Height (Feet): 6 Height (Inches): 0.00 Weight (Pounds): 183 General Appearance: alert EENT: normal ENT inspection Neck: supple Cardiovascular: normal rate Respiratory/Chest: lungs clear Abdomen: soft, tender, other - midline scar Extremities: non-tender David Billings MD Jul 11, 2018 07:44
[2018-07-11 08:00] VITALS: BP 107/68
[2018-07-11] MEDS: Docusate 250mg cap ORAL SCH (08:58)
[2018-07-11] MEDS: Aspirin Baby 81mg ORAL SCH (08:58)
[2018-07-11] MEDS: metFORMIN 500mg tab ORAL SCH (08:59)
[2018-07-11] MEDS ORDERED: Flu Vaccine (Alfuria) for Pts Less than 65 Years old IM ONE (09:00)
[2018-07-11] MEDS ORDERED: Meningococcal Polysacc Vaccine Inj IM ONE (09:00)
--- NOTE | 2018-07-11 10:15 | History and Physical Report ---
DATE OF ADMISSION: 07/10/2018 TIME SEEN: 8 a.m. CONSULTANTS: 1. Ino Harris M.D. 2. David Billings M.D. 3. Jacques Higgins M.D. 4. Cj Wild M.D. CHIEF COMPLAINT: Abdominal pain, HIV, UTI, and schizophrenia. BRIEF HISTORY: This is a 58-year-old male, who lives at [facility], presents to [facility] with above-mentioned diagnoses. He has some sharp abdominal pain, slight nausea. No vomiting and became worse, came to [facility], diagnosed with the above, admitted to medical floor for further treatment. Currently, slight abdominal pain, slight nausea, pain is about 6/10. No complaint. REVIEW OF SYSTEMS: No chest pain. No shortness of breath. Slight nausea. No vomiting or diarrhea. PAST MEDICAL HISTORY: Include HIV, UTI, schizophrenia, and diabetes. PAST SURGICAL HISTORY: Bowel obstruction. ALLERGIES: Denies. MEDICATIONS: Include Seroquel, Desyrel, insulin, aspirin, sodium, metformin, Lexapro, Protonix, morphine, and magnesium. SOCIAL HISTORY: Positive smoking. No alcohol. No intravenous drug abuse. FAMILY HISTORY: Noncontributory. PHYSICAL EXAMINATION: GENERAL: Calm in bed, oriented x3, no acute distress. VITAL SIGNS: Temperature is 97, pulse 60, respiratory rate 18, and blood pressure 107/68. CARDIOVASCULAR: No murmur. LUNGS: Distant and clear. ABDOMEN: Bowel sounds positive. Nontender. No guarding. No rigidity. No rebound. EXTREMITIES: No cyanosis, clubbing, or edema. NEUROLOGIC: The patient moves all extremities, slightly weak. LABORATORY AND DIAGNOSTIC DATA: Labs at this time show hemoglobin 11.8, otherwise CBC is normal. BMP shows sodium 132, glucose 157, otherwise normal. Urinalysis 1+ leukocyte esterase and urine tox is negative. ASSESSMENT: 1. Abdominal pain. 2. Nausea. 3. UTI. 4. Schizophrenia. 5. HIV. 6. Anemia. 7. Hepatitis C. 8. Diabetes. PLAN: 1. Blood pressure, blood sugar, pain control. 2. Antibiotics per Infectious Disease. 3. Dietary followup. 4. NPO. 5. IV fluids. 6. Pain control. 7. CBC and BMP in the morning. Brain Chang D.O. DR: JAZMYN JOB#: [id number] CC:
[2018-07-11] MEDS: Heparin 5000 units/ml inj SUBQ SCH ×2 (11:42→21:31)
[2018-07-11 12:00] VITALS: BP 98/67
[2018-07-11 16:00] VITALS: BP 156/89
[2018-07-11 19:57] VITALS: BP 125/67
[2018-07-11] MEDS: TraZODone 50mg tab ORAL SCH (21:29)
[2018-07-11] MEDS: QUEtiapine 200mg tab ORAL SCH (21:29)
[2018-07-11] MEDS: Levemir Flexpen SUBQ SCH (21:30)
[2018-07-12] VITALS (7 sets, daily range): BP systolic 107–152; BP diastolic 63–99
[2018-07-12] MEDS: Morphine Sulfate 2mg/ml Inj IVP PRN ×6 (03:13→23:18)
[2018-07-12 06:27] LABS: BASOPHILS % (AUTO) 1.2 % (0.0-2.0); EOSINOPHILS % (AUTO) 6.6 % (0.0-3.0); HEMOGLOBIN 11.5 G/DL (14.2-18.0); LYMPHOCYTES % (AUTO) 46.9 % (20.0-45.0); MEAN CORPUSCULAR VOLUME 88 FL (80-99); MONOCYTES % (AUTO) 5.8 % (1.0-10.0); NEUTROPHILS % (AUTO) 39.5 % (45.0-75.0); PLATELET COUNT 188 K/UL (150-450); RED BLOOD COUNT 3.85 M/UL (4.70-6.10); RED CELL DISTRIBUTION WIDTH 12.8 % (11.6-14.8); WHITE BLOOD COUNT 4.2 K/UL (4.8-10.8)
[2018-07-12 06:59] LABS: ANION GAP 5 mmol/L (5-15); BLOOD UREA NITROGEN 9 mg/dL (7-18); CALCIUM 8.4 MG/DL (8.5-10.1); CARBON DIOXIDE 29 MMOL/L (21-32); CHLORIDE 103 MMOL/L (98-107); CREATININE 0.7 MG/DL (0.55-1.30); POTASSIUM 3.8 MMOL/L (3.5-5.1); SODIUM 136 MMOL/L (136-145)
[2018-07-12 07:15] LABS: AMYLASE 132 U/L (25-115)
[2018-07-12 07:23] LABS: % IRON SATURATION 22 % (15-50); IRON 71 ug/dL (50-175); TOTAL IRON BINDING CAPACITY 323 ug/dL (250-450)
[2018-07-12] MEDS: Aspirin Baby 81mg ORAL SCH (08:21)
[2018-07-12] MEDS: metFORMIN 500mg tab ORAL SCH (08:21)
[2018-07-12] MEDS: Docusate 250mg cap ORAL SCH (08:21)
[2018-07-12] MEDS: Heparin 5000 units/ml inj SUBQ SCH ×2 (08:30→23:14)
--- NOTE | 2018-07-12 10:48 | Consultation ---
Consult Note Consult Note # [id number] Jacques Higgins MD Jul 12, 2018 10:48
--- NOTE | 2018-07-12 10:50 | GI Progress Note ---
Assessment/Plan Problems: (1) Abdominal pain ICD Codes: R10.9 - Unspecified abdominal pain SNOMED: 45269838 (2) Anemia ICD Codes: D64.9 - Anemia, unspecified SNOMED: 278543634 (3) Hepatitis C ICD Codes: B19.20 - Unspecified viral hepatitis C without hepatic coma SNOMED: 09798069 (4) HIV disease ICD Codes: B20 - Human immunodeficiency virus [HIV] disease SNOMED: 68871033 (5) Urinary tract infection ICD Codes: N39.0 - Urinary tract infection, site not specified SNOMED: 59138186 Status: stable Status Narrative Discussed with Dr. Billings. Assessment/Plan abdominal pain etiology unknown non specific neg CT for an acute finding history of SBO with resection per patient. adv diet ADA repeat labs ppi zofran prn pain control outpatient colonoscopy The patient was seen and examined at bedside and all new and available data was reviewed in the patients chart. I agree with the above findings, impression and plan. (Patient seen earlier today. Signature stamp does not reflect patient encounter time.). - David Billings MD Subjective Subjective abdominal pain improved wants to eat Objective Last 24 Hour Vital Signs Date Time Temp Pulse Resp B/P (MAP) Pulse Ox O2 Delivery O2 Flow Rate FiO2 07/12/18 10:33 97.7 65 18 107/66 (80) 99 07/12/18 09:00 97.7 65 18 107/66 (80) 99 07/12/18 08:52 97.5 07/12/18 04:45 97.5 60 18 108/63 (78) 96 07/12/18 00:52 97.0 86 18 152/99 (116) 94 07/11/18 22:52 Room Air 07/11/18 19:57 97.7 60 18 125/67 (86) 97 07/11/18 16:00 97.8 87 20 156/89 (111) 98 07/11/18 12:00 97.7 63 19 98/67 (77) 93 Intake and Output 07/11/18 07/12/18 19:00 07:00 Intake Total 1660 ml 900 ml Output Total 1000 ml 1000 ml Balance 660 ml -100 ml Intake Oral 1600 ml 360 ml IV Total 60 ml 540 ml Output Urine Total 1000 ml 1000 ml Laboratory Tests Test 07/12/18 05:20 White Blood Count 4.2 K/UL (4.8-10.8) L Red Blood Count 3.85 M/UL (4.70-6.10) L Hemoglobin 11.5 G/DL (14.2-18.0) L Hematocrit 34.0 % (42.0-52.0) L Mean Corpuscular Volume 88 FL (80-99) Mean Corpuscular Hemoglobin 29.9 PG (27.0-31.0) Mean Corpuscular Hemoglobin Concent 33.9 G/DL (32.0-36.0) Red Cell Distribution Width 12.8 % (11.6-14.8) Platelet Count 188 K/UL (150-450) Mean Platelet Volume 6.4 FL (6.5-10.1) L Neutrophils (%) (Auto) 39.5 % (45.0-75.0) L Lymphocytes (%) (Auto) 46.9 % (20.0-45.0) H Monocytes (%) (Auto) 5.8 % (1.0-10.0) Eosinophils (%) (Auto) 6.6 % (0.0-3.0) H Basophils (%) (Auto) 1.2 % (0.0-2.0) Sodium Level 136 MMOL/L (136-145) Potassium Level 3.8 MMOL/L (3.5-5.1) Chloride Level 103 MMOL/L (98-107) Carbon Dioxide Level 29 MMOL/L (21-32) Anion Gap 5 mmol/L (5-15) Blood Urea Nitrogen 9 mg/dL (7-18) Creatinine 0.7 MG/DL (0.55-1.30) Estimat Glomerular Filtration Rate > 60 mL/min (>60) Glucose Level 147 MG/DL (74-106) H Calcium Level 8.4 MG/DL (8.5-10.1) L Iron Level 71 ug/dL (50-175) Total Iron Binding Capacity 323 ug/dL (250-450) Percent Iron Saturation 22 % (15-50) Unsaturated Iron Binding 252 ug/dL (112-346) Amylase Level 132 U/L (25-115) H Lipase 83 U/L (73-393) Carcinoembryonic Antigen Pending Vitamin B12 Level 515 PG/ML (193-986) Folate 13.5 NG/ML (8.6-58.9) Hepatitis A IgM Antibody Pending Hepatitis B Surface Antigen Pending Hepatitis B Core IgM Antibody Pending Hepatitis C Antibody Pending Height (Feet): 6 Height (Inches): 0.00 Weight (Pounds): 183 General Appearance: WD/WN, no apparent distress, alert Cardiovascular: normal rate Respiratory/Chest: normal breath sounds, no respiratory distress Abdominal Exam: normal bowel sounds, non tender, soft, other - herniation Extremities: normal range of motion, non-tender Rodrigo Johnson NP Jul 12, 2018 10:50
--- NOTE | 2018-07-12 12:36 | Consultation ---
History of Present Illness General Date patient seen: Jul 12, 2018 Chief Complaint: Abdominal Pain Present Illness HPI 58-year-old male with hx of abdominal surgery, HIV brought in by EMS with CC of abdominal discomfort. Patient to prior surgeries for bowel obstruction. The he reports having some episodes of diarrhea recently. He denies any fever. pt is admitted to me/surg for further evaluation. Allergies: Coded Allergies: No Known Allergies (Unverified , 10/23/16) Medication History Scheduled Aspirin* (Aspirin*), 81 MG ORAL DAILY, (Reported) Cranberry Fruit (Cranberry), 900 MG PO DAILY, (Reported) Docusate Sodium* (Docusate Sodium*), 250 MG ORAL DAILY, (Reported) Escitalopram Oxalate* (Lexapro*), 20 MG ORAL DAILY, (Reported) Insulin Glargine (Lantus), 8 SUBQ BEDTIME, (Reported) Metformin Hcl* (Metformin Hcl*), 1,000 MG ORAL DAILY, (Reported) Omeprazole (Omeprazole), 20 MG ORAL DAILY, (Reported) Quetiapine Fumarate* (Seroquel*), 300 MG ORAL BEDTIME, (Reported) Trazodone Hcl* (Desyrel*), 50 MG ORAL BEDTIME, (Reported) Scheduled PRN Acetaminophen* (Tylenol Extra Strength*), 1,000 MG ORAL Q6H PRN for Moderate Pain (Pain Scale 4-6), (Reported) Acetaminophen* (Acetaminophen 325MG Tablet*), 325 MG ORAL Q6H PRN for Mild Pain/ Temp > 100.5, (Reported) Magnesium Hydroxide* (Milk Of Magnesia*), 30 ML ORAL DAILY PRN for Constipation, (Reported) Na Phos,M-B/Na Phos,Di-Ba* (Fleet Enema*), 133 ML RECTAL DAILY PRN for Constipation, (Reported) Patient History Healthcare decision maker Resuscitation status Advanced Directive on File Past Medical/Surgical History Past Medical/Surgical History: (1) HIV disease (2) Hepatitis C Review of Systems All Other Systems: negative except mentioned in HPI Physical Exam General Appearance: WD/WN Lines, tubes and drains: peripheral HEENT: normocephalic, atraumatic Neck: non-tender, normal alignment Respiratory/Chest: chest wall non-tender, normal breath sounds Breasts: no masses Cardiovascular/Chest: normal rate, regularly irregular Last 24 Hour Vital Signs Date Time Temp Pulse Resp B/P (MAP) Pulse Ox O2 Delivery O2 Flow Rate FiO2 07/12/18 10:33 97.7 65 18 107/66 (80) 99 07/12/18 09:00 97.7 65 18 107/66 (80) 99 07/12/18 09:00 Room Air 07/12/18 08:52 97.5 07/12/18 04:45 97.5 60 18 108/63 (78) 96 07/12/18 00:52 97.0 86 18 152/99 (116) 94 07/11/18 22:52 Room Air 07/11/18 19:57 97.7 60 18 125/67 (86) 97 07/11/18 16:00 97.8 87 20 156/89 (111) 98 Intake and Output 07/11/18 07/12/18 19:00 07:00 Intake Total 1660 ml 900 ml Output Total 1000 ml 1000 ml Balance 660 ml -100 ml Intake Oral 1600 ml 360 ml IV Total 60 ml 540 ml Output Urine Total 1000 ml 1000 ml Laboratory Tests Test 07/12/18 05:20 White Blood Count 4.2 K/UL (4.8-10.8) L Red Blood Count 3.85 M/UL (4.70-6.10) L Hemoglobin 11.5 G/DL (14.2-18.0) L Hematocrit 34.0 % (42.0-52.0) L Mean Corpuscular Volume 88 FL (80-99) Mean Corpuscular Hemoglobin 29.9 PG (27.0-31.0) Mean Corpuscular Hemoglobin Concent 33.9 G/DL (32.0-36.0) Red Cell Distribution Width 12.8 % (11.6-14.8) Platelet Count 188 K/UL (150-450) Mean Platelet Volume 6.4 FL (6.5-10.1) L Neutrophils (%) (Auto) 39.5 % (45.0-75.0) L Lymphocytes (%) (Auto) 46.9 % (20.0-45.0) H Monocytes (%) (Auto) 5.8 % (1.0-10.0) Eosinophils (%) (Auto) 6.6 % (0.0-3.0) H Basophils (%) (Auto) 1.2 % (0.0-2.0) Sodium Level 136 MMOL/L (136-145) Potassium Level 3.8 MMOL/L (3.5-5.1) Chloride Level 103 MMOL/L (98-107) Carbon Dioxide Level 29 MMOL/L (21-32) Anion Gap 5 mmol/L (5-15) Blood Urea Nitrogen 9 mg/dL (7-18) Creatinine 0.7 MG/DL (0.55-1.30) Estimat Glomerular Filtration Rate > 60 mL/min (>60) Glucose Level 147 MG/DL (74-106) H Calcium Level 8.4 MG/DL (8.5-10.1) L Iron Level 71 ug/dL (50-175) Total Iron Binding Capacity 323 ug/dL (250-450) Percent Iron Saturation 22 % (15-50) Unsaturated Iron Binding 252 ug/dL (112-346) Amylase Level 132 U/L (25-115) H Lipase 83 U/L (73-393) Carcinoembryonic Antigen Pending Vitamin B12 Level 515 PG/ML (193-986) Folate 13.5 NG/ML (8.6-58.9) Hepatitis A IgM Antibody Pending Hepatitis B Surface Antigen Pending Hepatitis B Core IgM Antibody Pending Hepatitis C Antibody Pending Height (Feet): 6 Height (Inches): 0.00 Weight (Pounds): 183 Medications Current Medications Medications (Trade) Dose Ordered Sig/Jan Route PRN Reason Start Time Stop Time Status Last Admin Dose Admin Acetaminophen (Tylenol) 325 mg Q6H PRN ORAL Mild Pain/Temp > 100.5 07/11/18 04:00 08/10/18 03:59 Acetaminophen (Tylenol) 1,000 mg Q6H PRN ORAL Moderate Pain (Pain Scale 4-6) 07/11/18 04:00 08/10/18 03:59 Aspirin (ASA) 81 mg DAILY ORAL 07/11/18 09:00 08/10/18 08:59 07/12/18 08:21 Dextrose (Dextrose 50%) 25 ml Q30M PRN IV Hypoglycemia 07/11/18 06:30 08/10/18 06:29 Dextrose (Dextrose 50%) 50 ml Q30M PRN IV Hypoglycemia 07/11/18 06:30 08/10/18 06:29 Dextrose/Sodium Chloride 1,000 ml @ 60 mls/hr [id number] IV 07/11/18 05:00 08/10/18 04:59 07/11/18 21:31 Docusate Sodium (Colace) 250 mg DAILY ORAL 07/11/18 09:00 08/10/18 08:59 07/12/18 08:21 Escitalopram Oxalate (Lexapro) 20 mg DAILY ORAL 07/11/18 09:00 08/10/18 08:59 07/12/18 08:22 Heparin Sodium (Porcine) (Heparin 5000 units/ml) 5,000 units EVERY 12 HOURS SUBQ 07/11/18 09:45 08/10/18 09:44 07/12/18 08:30 Insulin Detemir (Levemir) 8 units BEDTIME SUBQ 07/11/18 21:00 08/10/18 20:59 07/11/18 21:30 Iopamidol (Isovue-300 100ml) 100 ml NOW PRN INJ Radiology Procedure 07/10/18 18:15 Magnesium Hydroxide (Mom) 30 ml DAILY PRN ORAL Constipation 07/11/18 04:00 08/10/18 03:59 Metformin HCl (Glucophage) 1,000 mg DAILY ORAL 07/11/18 09:00 08/10/18 08:59 07/12/18 08:21 Morphine Sulfate (Morphine Sulfate) 2 mg Q4H PRN IVP Severe Pain (Pain Scale 7-10) 07/11/18 04:30 07/18/18 04:29 07/12/18 08:22 Pantoprazole (Protonix) 40 mg DAILY ORAL 07/11/18 09:00 08/10/18 08:59 07/12/18 08:21 Quetiapine Fumarate (SEROquel) 300 mg BEDTIME ORAL 07/11/18 21:00 08/10/18 20:59 07/11/18 21:29 Sodium Phosphate (Fleet's Sodium Phosl Enema) 133 ml DAILY PRN RECTAL Constipation 07/11/18 04:00 08/10/18 03:59 Trazodone HCl (Desyrel) 50 mg BEDTIME ORAL 07/11/18 21:00 08/10/18 20:59 07/11/18 21:29 Assessment/Plan Problem List: (1) Abdominal pain ICD Codes: R10.9 - Unspecified abdominal pain SNOMED: 52907195 (2) Anemia ICD Codes: D64.9 - Anemia, unspecified SNOMED: 658580462 (3) HIV disease ICD Codes: B20 - Human immunodeficiency virus [HIV] disease SNOMED: 01211188 (4) Urinary tract infection ICD Codes: N39.0 - Urinary tract infection, site not specified SNOMED: 73990096 (5) Hepatitis C ICD Codes: B19.20 - Unspecified viral hepatitis C without hepatic coma SNOMED: 37408347 Assessment/Plan NPO IV fluids GI/surgery evaluation dvt prophylaxis ID evaluation Ino Harris MD Jul 12, 2018 12:36
--- NOTE | 2018-07-12 13:25 | General Progress Note ---
Assessment/Plan Problem List: (1) Urinary tract infection ICD Codes: N39.0 - Urinary tract infection, site not specified SNOMED: 95760905 (2) Hepatitis C ICD Codes: B19.20 - Unspecified viral hepatitis C without hepatic coma SNOMED: 22237705 (3) Anemia ICD Codes: D64.9 - Anemia, unspecified SNOMED: 867544915 (4) Abdominal pain ICD Codes: R10.9 - Unspecified abdominal pain SNOMED: 60568971 (5) HIV disease ICD Codes: B20 - Human immunodeficiency virus [HIV] disease SNOMED: 74521497 Status: unchanged Assessment/Plan ot pt diet adv diet if possible abx cbc bmp am Subjective Constitutional: Reports: weakness Gastrointestinal/Abdominal: Reports: nausea Allergies: Coded Allergies: No Known Allergies (Unverified , 10/23/16) All Systems: reviewed and negative except above Subjective farahna liquid diet Objective Last 24 Hour Vital Signs Date Time Temp Pulse Resp B/P (MAP) Pulse Ox O2 Delivery O2 Flow Rate FiO2 07/12/18 10:33 97.7 65 18 107/66 (80) 99 07/12/18 09:00 97.7 65 18 107/66 (80) 99 07/12/18 09:00 Room Air 07/12/18 08:52 97.5 07/12/18 04:45 97.5 60 18 108/63 (78) 96 07/12/18 00:52 97.0 86 18 152/99 (116) 94 07/11/18 22:52 Room Air 07/11/18 19:57 97.7 60 18 125/67 (86) 97 07/11/18 16:00 97.8 87 20 156/89 (111) 98 Intake and Output 07/11/18 07/12/18 19:00 07:00 Intake Total 1660 ml 900 ml Output Total 1000 ml 1000 ml Balance 660 ml -100 ml Intake Oral 1600 ml 360 ml IV Total 60 ml 540 ml Output Urine Total 1000 ml 1000 ml Laboratory Tests 07/12/18 05:20: White Blood Count 4.2L, Red Blood Count 3.85L, Hemoglobin 11.5L, Hematocrit 34.0L, Mean Corpuscular Volume 88, Mean Corpuscular Hemoglobin 29.9, Mean Corpuscular Hemoglobin Concent 33.9, Red Cell Distribution Width 12.8, Platelet Count 188, Mean Platelet Volume 6.4L, Neutrophils (%) (Auto) 39.5L, Lymphocytes (%) (Auto) 46.9H, Monocytes (%) (Auto) 5.8, Eosinophils (%) (Auto) 6.6H, Basophils (%) (Auto) 1.2, Sodium Level 136, Potassium Level 3.8, Chloride Level 103, Carbon Dioxide Level 29, Anion Gap 5, Blood Urea Nitrogen 9, Creatinine 0.7 , Estimat Glomerular Filtration Rate > 60, Glucose Level 147H, Calcium Level 8.4L, Iron Level 71, Total Iron Binding Capacity 323, Percent Iron Saturation 22 , Unsaturated Iron Binding 252, Amylase Level 132H, Lipase 83, Carcinoembryonic Antigen [Pending], Vitamin B12 Level 515, Folate 13.5, Hepatitis A IgM Antibody [Pending], Hepatitis B Surface Antigen [Pending], Hepatitis B Core IgM Antibody [Pending], Hepatitis C Antibody [Pending] Height (Feet): 6 Height (Inches): 0.00 Weight (Pounds): 183 General Appearance: lethargic EENT: normal ENT inspection Neck: normal alignment Cardiovascular: normal peripheral pulses, normal rate, regular rhythm Respiratory/Chest: chest wall non-tender, lungs clear, normal breath sounds Abdomen: non tender, soft, hypoactive bowel sounds Extremities: normal inspection Edema: no edema noted Arm (L), no edema noted Arm (R), no edema noted Leg (L), no edema noted Leg (R), no edema noted Pedal (L), no edema noted Pedal (R), no edema noted Generalized Neurologic: responsive, motor weakness Skin: normal pigmentation, warm/dry Brain Chang DO Jul 12, 2018 13:25
[2018-07-12] MEDS: D5 1/2NS 1,000 ML IV SCH (15:17)
[2018-07-12] MEDS ORDERED: D5 1/2NS 1000ml IV ONE (17:34)
[2018-07-12] MEDS: QUEtiapine 200mg tab ORAL SCH (23:11)
[2018-07-12] MEDS: TraZODone 50mg tab ORAL SCH (23:12)
[2018-07-12] MEDS: Levemir Flexpen SUBQ SCH (23:13)
[2018-07-13] VITALS: BP 116/72
--- NOTE | 2018-07-13 01:00 | Consultation ---
DATE OF CONSULTATION: 07/12/2018 INFECTIOUS DISEASE CONSULTATION CONSULTING PHYSICIAN: Jacques Higgins M.D. ATTENDING PHYSICIAN: Brain Chang D.O. REFERRING PHYSICIAN: Brain Chang D.O. REASON FOR CONSULTATION: Evaluation of patient for HIV, possible UTI, antibiotic management. HISTORY OF PRESENT ILLNESS: The patient is a 58-year-old male, poor historian with multiple medical problems as listed below, who was admitted to this medical center with abdominal pain. CT scan of abdomen was unremarkable. There has been a history of small bowel resection in the past. Also, the patient has history of HIV. Apparently, he has been off of medication since 2011. According to him, few weeks ago his HIV viral load was around 9000 with a CD4 count of about . However, I am not sure if this information is completely accurate. The patient has history of schizophrenia. Infectious Diseases consultation has been requested for further evaluation of the patient. PAST MEDICAL HISTORY: 1. HIV (no documentation of CD4 count or viral load, off of treatment). 2. History of schizophrenia. 3. History of bowel obstruction, status post resection. 4. History of diabetes. ALLERGIES: No known drug allergies. SOCIAL HISTORY: History of drug abuse in the past, cocaine. FAMILY HISTORY: Noncontributory. REVIEW OF SYSTEMS: Limited. Much information, we were able to gather as mentioned above. The patient overall a poor historian having dysuria, but the patient has difficulty of urination (intermittent urination and difficult to push out urine). PHYSICAL EXAMINATION: VITAL SIGNS: Temperature 97.1, pulse 62, and respiratory rate 18. HEENT: No pale conjunctivae. No icterus. CHEST: Clear. HEART: S1 and S2. ABDOMEN: Soft and nontender. EXTREMITIES: No cyanosis at this time. No edema. NEUROLOGIC: Awake. LABORATORY AND DIAGNOSTIC DATA: White blood cells 4.2, hemoglobin 11, and platelets 188,000. UA unremarkable, 5 to 10 white blood cells. BUN 9 and creatinine 0.7. Hepatitis panel is pending. ASSESSMENT: The patient is a 58-year-old male with 1. Profuse abdominal pain. CT of the abdomen unremarkable. 2. History of human immunodeficiency virus, unknown CD4 count and viral load. 3. Rule out chronic hepatitis. 4. No evidence of acute bacterial infection such as urinary tract infection. 5. Mild leukopenia PLAN: 1. We will monitor the patient off of antibiotics. 2. We will check CD4 count. 3. HIV viral load. 4. HIV serology. 5. Monitor hepatitis panel. 6. Based on the patient's clinical laboratories, we will do further recommendations. Thank you, Dr. Chang, for allowing me to participate in the care of this patient. I will follow the patient with you during this hospitalization. Jacques Higgins M.D. DR: NAMRATA JOB#: [id number] CC:
[2018-07-13 04:00] VITALS: BP 121/81
[2018-07-13] MEDS: D5 1/2NS 1,000 ML IV SCH ×2 (05:40→22:10)
[2018-07-13 08:26] LABS: BASOPHILS % (AUTO) 1.1 % (0.0-2.0); EOSINOPHILS % (AUTO) 7.2 % (0.0-3.0); HEMATOCRIT 32.4 % (42.0-52.0); HEMOGLOBIN 11.8 G/DL (14.2-18.0); LYMPHOCYTES % (AUTO) 49.1 % (20.0-45.0); MEAN CORPUSCULAR VOLUME 88 FL (80-99); MONOCYTES % (AUTO) 5.7 % (1.0-10.0); NEUTROPHILS % (AUTO) 36.9 % (45.0-75.0); PLATELET COUNT 185 K/UL (150-450); RED BLOOD COUNT 3.68 M/UL (4.70-6.10); RED CELL DISTRIBUTION WIDTH 12.5 % (11.6-14.8); WHITE BLOOD COUNT 4.5 K/UL (4.8-10.8)
[2018-07-13 08:46] VITALS: BP 111/72
[2018-07-13 09:10] LABS: ANION GAP 12 mmol/L (5-15); BLOOD UREA NITROGEN 15 mg/dL (7-18); CALCIUM 8.4 MG/DL (8.5-10.1); CARBON DIOXIDE 20 MMOL/L (21-32); CHLORIDE 100 MMOL/L (98-107); CREATININE 0.8 MG/DL (0.55-1.30); POTASSIUM 3.8 MMOL/L (3.5-5.1); SODIUM 132 MMOL/L (136-145)
[2018-07-13] MEDS: Morphine Sulfate 2mg/ml Inj IVP PRN ×2 (09:49→18:39)
[2018-07-13] MEDS: Aspirin Baby 81mg ORAL SCH (09:55)
[2018-07-13] MEDS: Docusate 250mg cap ORAL SCH (09:57)
[2018-07-13] MEDS: metFORMIN 500mg tab ORAL SCH (09:58)
[2018-07-13] MEDS: Heparin 5000 units/ml inj SUBQ SCH ×2 (10:18→22:09)
--- NOTE | 2018-07-13 11:21 | Pulmonology Progress Note ---
Assessment/Plan Problems: (1) Abdominal pain (2) Anemia (3) HIV disease (4) Urinary tract infection (5) Hepatitis C Assessment/Plan improving NPO IV fluids GI/surgery evaluation dvt prophylaxis ID evaluation Subjective ROS Limited/Unobtainable: No Interval Events: geeling better Allergies: Coded Allergies: No Known Allergies (Unverified , 10/23/16) Objective Last 24 Hour Vital Signs Date Time Temp Pulse Resp B/P (MAP) Pulse Ox O2 Delivery O2 Flow Rate FiO2 07/13/18 10:19 98.1 07/13/18 08:46 98.1 62 18 111/72 (85) 95 07/13/18 04:00 98.3 65 21 121/81 (94) 94 07/13/18 00:00 98.4 70 19 116/72 (87) 97 07/12/18 21:00 Room Air 07/12/18 20:00 98.8 66 20 107/72 (84) 98 07/12/18 16:00 97.7 72 18 122/75 (91) 99 07/12/18 12:00 97.7 72 18 133/82 (99) 99 Intake and Output 07/12/18 07/13/18 19:00 07:00 Intake Total 2520 ml 420 ml Output Total 1800 ml 950 ml Balance 720 ml -530 ml IV Total 720 ml 420 ml Other 1800 ml Output Urine Total 1800 ml 950 ml # Voids 3 General Appearance: WD/WN HEENT: normocephalic, atraumatic Respiratory/Chest: chest wall non-tender, lungs clear Cardiovascular: normal peripheral pulses, normal rate Abdomen: normal bowel sounds, soft, non tender Genitourinary: normal external genitalia Skin: no rash Microbiology Date/Time Source Procedure Growth Status 07/10/18 23:25 Nasal Nares MRSA Culture - Final NO METHICILLIN RESISTANT STAPH AUREUS... Complete 07/10/18 23:25 Rectum VRE Culture - Final Enterococcus Faecalis - Vre Complete 07/10/18 23:25 Rectum - Final NO CARBAPENEM-RESISTANT ENTEROBACTERI... Complete Laboratory Tests 07/12/18 18:50: White Blood Count [Pending], Lymphocytes [Pending], Percent CD3 Cells [Pending] , Absolute CD3 Count [Pending], Percent CD4 Cells [Pending], Absolute CD4 Count [Pending], T-Lymphocyte CD4/CD8 Ratio [Pending], Percent CD8 Cells [Pending], Absolute CD8 Count [Pending], HIV-1 RNA (PCR) log10 Value [Pending], HIV-1 RNA Ultraquantitative (PCR) [Pending], HIV (1&2) Antibody Rapid Preliminary positiveH 07/13/18 08:05: White Blood Count 4.5L, Red Blood Count 3.68L, Hemoglobin 11.8L, Hematocrit 32.4L, Mean Corpuscular Volume 88, Mean Corpuscular Hemoglobin 32.0H, Mean Corpuscular Hemoglobin Concent 36.4H, Red Cell Distribution Width 12.5, Platelet Count 185, Mean Platelet Volume 5.9L, Neutrophils (%) (Auto) 36.9L, Lymphocytes (%) (Auto) 49.1H, Monocytes (%) (Auto) 5.7, Eosinophils (%) (Auto) 7.2H, Basophils (%) (Auto) 1.1, Sodium Level 132L, Potassium Level 3.8, Chloride Level 100, Carbon Dioxide Level 20L, Anion Gap 12, Blood Urea Nitrogen 15, Creatinine 0.8, Estimat Glomerular Filtration Rate > 60, Glucose Level 273#H , Calcium Level 8.4L Current Medications Medications (Trade) Dose Ordered Sig/Jan Route PRN Reason Start Time Stop Time Status Last Admin Dose Admin Acetaminophen (Tylenol) 325 mg Q6H PRN ORAL Mild Pain/Temp > 100.5 07/11/18 04:00 08/10/18 03:59 Acetaminophen (Tylenol) 1,000 mg Q6H PRN ORAL Moderate Pain (Pain Scale 4-6) 07/11/18 04:00 08/10/18 03:59 Aspirin (ASA) 81 mg DAILY ORAL 07/11/18 09:00 08/10/18 08:59 07/13/18 09:55 Dextrose (Dextrose 50%) 25 ml Q30M PRN IV Hypoglycemia 07/11/18 06:30 08/10/18 06:29 Dextrose (Dextrose 50%) 50 ml Q30M PRN IV Hypoglycemia 07/11/18 06:30 08/10/18 06:29 Dextrose/Sodium Chloride 1,000 ml @ 60 mls/hr [id number] IV 07/11/18 05:00 08/10/18 04:59 07/13/18 05:40 Docusate Sodium (Colace) 250 mg DAILY ORAL 07/11/18 09:00 08/10/18 08:59 07/13/18 09:57 Escitalopram Oxalate (Lexapro) 20 mg DAILY ORAL 07/11/18 09:00 08/10/18 08:59 07/13/18 10:13 Heparin Sodium (Porcine) (Heparin 5000 units/ml) 5,000 units EVERY 12 HOURS SUBQ 07/11/18 09:45 08/10/18 09:44 07/13/18 10:18 Insulin Detemir (Levemir) 8 units BEDTIME SUBQ 07/11/18 21:00 08/10/18 20:59 07/12/18 23:13 Iopamidol (Isovue-300 100ml) 100 ml NOW PRN INJ Radiology Procedure 07/10/18 18:15 Magnesium Hydroxide (Mom) 30 ml DAILY PRN ORAL Constipation 07/11/18 04:00 08/10/18 03:59 Metformin HCl (Glucophage) 1,000 mg DAILY ORAL 07/11/18 09:00 08/10/18 08:59 07/13/18 09:58 Morphine Sulfate (Morphine Sulfate) 2 mg Q4H PRN IVP Severe Pain (Pain Scale 7-10) 07/11/18 04:30 07/18/18 04:29 07/13/18 09:49 Pantoprazole (Protonix) 40 mg DAILY ORAL 07/11/18 09:00 08/10/18 08:59 07/13/18 10:00 Quetiapine Fumarate (SEROquel) 300 mg BEDTIME ORAL 07/11/18 21:00 08/10/18 20:59 07/12/18 23:11 Sodium Phosphate (Fleet's Sodium Phosl Enema) 133 ml DAILY PRN RECTAL Constipation 07/11/18 04:00 08/10/18 03:59 Trazodone HCl (Desyrel) 50 mg BEDTIME ORAL 07/11/18 21:00 08/10/18 20:59 07/12/18 23:12 Ino Harris MD Jul 13, 2018 11:21
[2018-07-13 11:55] VITALS: BP 106/54
--- NOTE | 2018-07-13 13:21 | GI Progress Note ---
Assessment/Plan Problems: (1) Abdominal pain ICD Codes: R10.9 - Unspecified abdominal pain SNOMED: 52270791 (2) Anemia ICD Codes: D64.9 - Anemia, unspecified SNOMED: 711887139 (3) Hepatitis C ICD Codes: B19.20 - Unspecified viral hepatitis C without hepatic coma SNOMED: 97604042 (4) HIV disease ICD Codes: B20 - Human immunodeficiency virus [HIV] disease SNOMED: 88988050 (5) Urinary tract infection ICD Codes: N39.0 - Urinary tract infection, site not specified SNOMED: 69884034 Status: stable Status Narrative Discussed with Dr. Billings. Assessment/Plan abdominal pain etiology unknown non specific neg CT for an acute finding history of SBO with resection per patient. adv diet ADA repeat labs ppi zofran prn pain control outpatient colonoscopy The patient was seen and examined at bedside and all new and available data was reviewed in the patients chart. I agree with the above findings, impression and plan. (Patient seen earlier today. Signature stamp does not reflect patient encounter time.). - David Billings MD Subjective Subjective abdominal pain improved wants to eat Objective Last 24 Hour Vital Signs Date Time Temp Pulse Resp B/P (MAP) Pulse Ox O2 Delivery O2 Flow Rate FiO2 07/13/18 11:55 97.5 65 17 106/54 (71) 99 07/13/18 10:19 98.1 07/13/18 09:00 Room Air 07/13/18 08:46 98.1 62 18 111/72 (85) 95 07/13/18 04:00 98.3 65 21 121/81 (94) 94 07/13/18 00:00 98.4 70 19 116/72 (87) 97 07/12/18 21:00 Room Air 07/12/18 20:00 98.8 66 20 107/72 (84) 98 07/12/18 16:00 97.7 72 18 122/75 (91) 99 Intake and Output 07/12/18 07/13/18 19:00 07:00 Intake Total 2520 ml 420 ml Output Total 1800 ml 950 ml Balance 720 ml -530 ml IV Total 720 ml 420 ml Other 1800 ml Output Urine Total 1800 ml 950 ml # Voids 3 Laboratory Tests Test 07/12/18 18:50 07/13/18 08:05 White Blood Count Pending 4.5 K/UL (4.8-10.8) L Lymphocytes Pending Percent CD3 Cells Pending Absolute CD3 Count Pending Percent CD4 Cells Pending Absolute CD4 Count Pending T-Lymphocyte CD4/CD8 Ratio Pending Percent CD8 Cells Pending Absolute CD8 Count Pending HIV-1 RNA (PCR) log10 Value Pending HIV-1 RNA Ultraquantitative (PCR) Pending HIV (1&2) Antibody Rapid Preliminary positive Red Blood Count 3.68 M/UL (4.70-6.10) L Hemoglobin 11.8 G/DL (14.2-18.0) L Hematocrit 32.4 % (42.0-52.0) L Mean Corpuscular Volume 88 FL (80-99) Mean Corpuscular Hemoglobin 32.0 PG (27.0-31.0) H Mean Corpuscular Hemoglobin Concent 36.4 G/DL (32.0-36.0) H Red Cell Distribution Width 12.5 % (11.6-14.8) Platelet Count 185 K/UL (150-450) Mean Platelet Volume 5.9 FL (6.5-10.1) L Neutrophils (%) (Auto) 36.9 % (45.0-75.0) L Lymphocytes (%) (Auto) 49.1 % (20.0-45.0) H Monocytes (%) (Auto) 5.7 % (1.0-10.0) Eosinophils (%) (Auto) 7.2 % (0.0-3.0) H Basophils (%) (Auto) 1.1 % (0.0-2.0) Sodium Level 132 MMOL/L (136-145) L Potassium Level 3.8 MMOL/L (3.5-5.1) Chloride Level 100 MMOL/L (98-107) Carbon Dioxide Level 20 MMOL/L (21-32) L Anion Gap 12 mmol/L (5-15) Blood Urea Nitrogen 15 mg/dL (7-18) Creatinine 0.8 MG/DL (0.55-1.30) Estimat Glomerular Filtration Rate > 60 mL/min (>60) Glucose Level 273 MG/DL (74-106) #H Calcium Level 8.4 MG/DL (8.5-10.1) L Height (Feet): 6 Height (Inches): 0.00 Weight (Pounds): 183 General Appearance: WD/WN, no apparent distress, alert, thin Cardiovascular: normal rate Respiratory/Chest: normal breath sounds, no respiratory distress Abdominal Exam: normal bowel sounds, non tender, soft Extremities: normal range of motion, non-tender Rodrigo Johnson NP Jul 13, 2018 13:21
--- NOTE | 2018-07-13 14:38 | General Progress Note ---
Assessment/Plan Problem List: (1) Urinary tract infection ICD Codes: N39.0 - Urinary tract infection, site not specified SNOMED: 16451110 (2) Hepatitis C ICD Codes: B19.20 - Unspecified viral hepatitis C without hepatic coma SNOMED: 60242939 (3) Anemia ICD Codes: D64.9 - Anemia, unspecified SNOMED: 964480705 (4) Abdominal pain ICD Codes: R10.9 - Unspecified abdominal pain SNOMED: 48688561 (5) HIV disease ICD Codes: B20 - Human immunodeficiency virus [HIV] disease SNOMED: 21320691 Status: stable, progressing Assessment/Plan ot pt diet adv diet if possible abx cbc bmp am dc plan snf Subjective Constitutional: Reports: weakness Allergies: Coded Allergies: No Known Allergies (Unverified , 10/23/16) All Systems: reviewed and negative except above Subjective ate ok Objective Last 24 Hour Vital Signs Date Time Temp Pulse Resp B/P (MAP) Pulse Ox O2 Delivery O2 Flow Rate FiO2 07/13/18 11:55 97.5 65 17 106/54 (71) 99 07/13/18 10:19 98.1 07/13/18 09:00 Room Air 07/13/18 08:46 98.1 62 18 111/72 (85) 95 07/13/18 04:00 98.3 65 21 121/81 (94) 94 07/13/18 00:00 98.4 70 19 116/72 (87) 97 07/12/18 21:00 Room Air 07/12/18 20:00 98.8 66 20 107/72 (84) 98 07/12/18 16:00 97.7 72 18 122/75 (91) 99 Intake and Output 07/12/18 07/13/18 19:00 07:00 Intake Total 2520 ml 420 ml Output Total 1800 ml 950 ml Balance 720 ml -530 ml IV Total 720 ml 420 ml Other 1800 ml Output Urine Total 1800 ml 950 ml # Voids 3 Laboratory Tests 07/12/18 18:50: White Blood Count 4.6, Lymphocytes 51, Nucleated Red Blood Cells , Absolute Lymphocytes (Cell Immunity 2.4, Percent CD3 Cells 86.0, Absolute CD3 Count 2064 , Percent CD4 Cells 19.0L, Absolute CD4 Count 456, T-Lymphocyte CD4/CD8 Ratio 0.29L, Percent CD8 Cells 66.0H, Absolute CD8 Count 1584H, HIV-1 RNA (PCR) log10 Value [Pending], HIV-1 RNA Ultraquantitative (PCR) [Pending], HIV (1&2) Antibody Rapid Preliminary positiveH 07/13/18 08:05: White Blood Count 4.5L, Red Blood Count 3.68L, Hemoglobin 11.8L, Hematocrit 32.4L, Mean Corpuscular Volume 88, Mean Corpuscular Hemoglobin 32.0H, Mean Corpuscular Hemoglobin Concent 36.4H, Red Cell Distribution Width 12.5, Platelet Count 185, Mean Platelet Volume 5.9L, Neutrophils (%) (Auto) 36.9L, Lymphocytes (%) (Auto) 49.1H, Monocytes (%) (Auto) 5.7, Eosinophils (%) (Auto) 7.2H, Basophils (%) (Auto) 1.1, Sodium Level 132L, Potassium Level 3.8, Chloride Level 100, Carbon Dioxide Level 20L, Anion Gap 12, Blood Urea Nitrogen 15, Creatinine 0.8, Estimat Glomerular Filtration Rate > 60, Glucose Level 273#H , Calcium Level 8.4L Height (Feet): 6 Height (Inches): 0.00 Weight (Pounds): 183 General Appearance: alert EENT: normal ENT inspection Neck: normal alignment Cardiovascular: normal peripheral pulses, normal rate, regular rhythm Respiratory/Chest: chest wall non-tender, lungs clear, normal breath sounds Abdomen: normal bowel sounds, non tender, soft Extremities: normal inspection Edema: no edema noted Arm (L), no edema noted Arm (R), no edema noted Leg (L), no edema noted Leg (R), no edema noted Pedal (L), no edema noted Pedal (R), no edema noted Generalized Neurologic: responsive, motor weakness Skin: normal pigmentation, warm/dry Brain Chang DO Jul 13, 2018 14:38
[2018-07-13] MEDS ORDERED: D5 1/2NS 1000ml IV ONE (15:26)
[2018-07-13 16:02] VITALS: BP 107/73
--- NOTE | 2018-07-13 16:13 | Infectious Diseases Prog Note ---
Assessment/Plan Assessment/Plan ASSESSMENT: The patient is a 58-year-old male with SP abdominal pain CT of the abdomen unremarkable. Hx of HIV CD4 : 456 ( 06/2018) off ARVs ( since 2011) HIV V load: P Hepatitis C Ab + No evidence of acute bacterial infection / UTI Mild leukopenia History of schizophrenia. History of bowel obstruction, status post resection. History of diabetes. PLAN: will monitor the patient off of antibiotics. HIV viral load HIV serology Hepatitis C PCR need fup with out side HIV provider , to be started as out pt Subjective Allergies: Coded Allergies: No Known Allergies (Unverified , 10/23/16) Subjective comfortable Objective Vital Signs Last 24 Hour Vital Signs Date Time Temp Pulse Resp B/P (MAP) Pulse Ox O2 Delivery O2 Flow Rate FiO2 07/13/18 16:02 98.1 67 20 107/73 (84) 98 07/13/18 11:55 97.5 65 17 106/54 (71) 99 07/13/18 10:19 98.1 07/13/18 09:00 Room Air 07/13/18 08:46 98.1 62 18 111/72 (85) 95 07/13/18 04:00 98.3 65 21 121/81 (94) 94 07/13/18 00:00 98.4 70 19 116/72 (87) 97 07/12/18 21:00 Room Air 07/12/18 20:00 98.8 66 20 107/72 (84) 98 Height (Feet): 6 Height (Inches): 0.00 Weight (Pounds): 183 HEENT: anicteric Respiratory/Chest: no respiratory distress Cardiovascular: no gallop/murmur Abdomen: no organomegaly Microbiology Date/Time Source Procedure Growth Status 07/10/18 23:25 Nasal Nares MRSA Culture - Final NO METHICILLIN RESISTANT STAPH AUREUS... Complete 07/10/18 23:25 Rectum VRE Culture - Final Enterococcus Faecalis - Vre Complete 07/10/18 23:25 Rectum - Final NO CARBAPENEM-RESISTANT ENTEROBACTERI... Complete Laboratory Tests Test 07/12/18 18:50 07/13/18 08:05 White Blood Count 4.6 x10E3/uL (3.4-10.8) 4.5 K/UL (4.8-10.8) L Lymphocytes 51 % (Not Estab.) Nucleated Red Blood Cells (.) Absolute Lymphocytes (Cell Immunity 2.4 x10E3/uL (0.7-3.1) Percent CD3 Cells 86.0 % (57.5-86.2) Absolute CD3 Count 2064 /uL (622-2402) Percent CD4 Cells 19.0 % (30.8-58.5) L Absolute CD4 Count 456 /uL (359-1519) T-Lymphocyte CD4/CD8 Ratio 0.29 (0.92-3.72) L Percent CD8 Cells 66.0 % (12.0-35.5) H Absolute CD8 Count 1584 /uL (109-897) H HIV-1 RNA (PCR) log10 Value Pending HIV-1 RNA Ultraquantitative (PCR) Pending HIV (1&2) Antibody Rapid Preliminary positive Red Blood Count 3.68 M/UL (4.70-6.10) L Hemoglobin 11.8 G/DL (14.2-18.0) L Hematocrit 32.4 % (42.0-52.0) L Mean Corpuscular Volume 88 FL (80-99) Mean Corpuscular Hemoglobin 32.0 PG (27.0-31.0) H Mean Corpuscular Hemoglobin Concent 36.4 G/DL (32.0-36.0) H Red Cell Distribution Width 12.5 % (11.6-14.8) Platelet Count 185 K/UL (150-450) Mean Platelet Volume 5.9 FL (6.5-10.1) L Neutrophils (%) (Auto) 36.9 % (45.0-75.0) L Lymphocytes (%) (Auto) 49.1 % (20.0-45.0) H Monocytes (%) (Auto) 5.7 % (1.0-10.0) Eosinophils (%) (Auto) 7.2 % (0.0-3.0) H Basophils (%) (Auto) 1.1 % (0.0-2.0) Sodium Level 132 MMOL/L (136-145) L Potassium Level 3.8 MMOL/L (3.5-5.1) Chloride Level 100 MMOL/L (98-107) Carbon Dioxide Level 20 MMOL/L (21-32) L Anion Gap 12 mmol/L (5-15) Blood Urea Nitrogen 15 mg/dL (7-18) Creatinine 0.8 MG/DL (0.55-1.30) Estimat Glomerular Filtration Rate > 60 mL/min (>60) Glucose Level 273 MG/DL (74-106) #H Calcium Level 8.4 MG/DL (8.5-10.1) L Current Medications Medications (Trade) Dose Ordered Sig/Jan Route PRN Reason Start Time Stop Time Status Last Admin Dose Admin Acetaminophen (Tylenol) 325 mg Q6H PRN ORAL Mild Pain/Temp > 100.5 07/11/18 04:00 08/10/18 03:59 Acetaminophen (Tylenol) 1,000 mg Q6H PRN ORAL Moderate Pain (Pain Scale 4-6) 07/11/18 04:00 08/10/18 03:59 Aspirin (ASA) 81 mg DAILY ORAL 07/11/18 09:00 08/10/18 08:59 07/13/18 09:55 Dextrose (Dextrose 50%) 25 ml Q30M PRN IV Hypoglycemia 07/11/18 06:30 08/10/18 06:29 Dextrose (Dextrose 50%) 50 ml Q30M PRN IV Hypoglycemia 07/11/18 06:30 08/10/18 06:29 Dextrose/Sodium Chloride 1,000 ml @ 60 mls/hr [id number] IV 07/11/18 05:00 08/10/18 04:59 07/13/18 05:40 Docusate Sodium (Colace) 250 mg DAILY ORAL 07/11/18 09:00 08/10/18 08:59 07/13/18 09:57 Escitalopram Oxalate (Lexapro) 20 mg DAILY ORAL 07/11/18 09:00 08/10/18 08:59 07/13/18 10:13 Heparin Sodium (Porcine) (Heparin 5000 units/ml) 5,000 units EVERY 12 HOURS SUBQ 07/11/18 09:45 08/10/18 09:44 07/13/18 10:18 Insulin Detemir (Levemir) 8 units BEDTIME SUBQ 07/11/18 21:00 08/10/18 20:59 07/12/18 23:13 Iopamidol (Isovue-300 100ml) 100 ml NOW PRN INJ Radiology Procedure 07/10/18 18:15 Magnesium Hydroxide (Mom) 30 ml DAILY PRN ORAL Constipation 07/11/18 04:00 08/10/18 03:59 Metformin HCl (Glucophage) 1,000 mg DAILY ORAL 07/11/18 09:00 08/10/18 08:59 07/13/18 09:58 Morphine Sulfate (Morphine Sulfate) 2 mg Q4H PRN IVP Severe Pain (Pain Scale 7-10) 07/11/18 04:30 07/18/18 04:29 07/13/18 09:49 Pantoprazole (Protonix) 40 mg DAILY ORAL 07/11/18 09:00 08/10/18 08:59 07/13/18 10:00 Quetiapine Fumarate (SEROquel) 300 mg BEDTIME ORAL 07/11/18 21:00 08/10/18 20:59 07/12/18 23:11 Sodium Phosphate (Fleet's Sodium Phosl Enema) 133 ml DAILY PRN RECTAL Constipation 07/11/18 04:00 08/10/18 03:59 Trazodone HCl (Desyrel) 50 mg BEDTIME ORAL 07/11/18 21:00 08/10/18 20:59 07/12/18 23:12 Jacques Higgins MD Jul 13, 2018 16:13
[2018-07-13 20:00] VITALS: BP 123/79
[2018-07-13] MEDS: TraZODone 50mg tab ORAL SCH (22:07)
[2018-07-13] MEDS: QUEtiapine 200mg tab ORAL SCH (22:08)
[2018-07-13] MEDS: Levemir Flexpen SUBQ SCH (22:09)
[2018-07-14] VITALS: BP 120/83
[2018-07-14 04:00] VITALS: BP 105/71
[2018-07-14 08:00] VITALS: BP 106/71
[2018-07-14] MEDS: Aspirin Baby 81mg ORAL SCH (09:27)
[2018-07-14] MEDS: Docusate 250mg cap ORAL SCH (09:29)
[2018-07-14] MEDS: metFORMIN 500mg tab ORAL SCH (09:30)
[2018-07-14] MEDS: Heparin 5000 units/ml inj SUBQ SCH ×2 (09:39→20:30)
--- NOTE | 2018-07-14 10:39 | GI Progress Note ---
Assessment/Plan Problems: (1) Abdominal pain ICD Codes: R10.9 - Unspecified abdominal pain SNOMED: 38765310 (2) Anemia ICD Codes: D64.9 - Anemia, unspecified SNOMED: 845990464 (3) Hepatitis C ICD Codes: B19.20 - Unspecified viral hepatitis C without hepatic coma SNOMED: 77822138 (4) HIV disease ICD Codes: B20 - Human immunodeficiency virus [HIV] disease SNOMED: 44003669 (5) Urinary tract infection ICD Codes: N39.0 - Urinary tract infection, site not specified SNOMED: 39823892 Status: stable Status Narrative Discussed with Dr. Billings. Assessment/Plan abdominal pain etiology unknown non specific neg CT for an acute finding history of SBO with resection per patient. adv diet ADA repeat labs ppi zofran prn pain control outpatient colonoscopy dc planning The patient was seen and examined at bedside and all new and available data was reviewed in the patients chart. I agree with the above findings, impression and plan. (Patient seen earlier today. Signature stamp does not reflect patient encounter time.). - David Billings MD Subjective Subjective abdominal pain improved tolerating feeds Objective Last 24 Hour Vital Signs Date Time Temp Pulse Resp B/P (MAP) Pulse Ox O2 Delivery O2 Flow Rate FiO2 07/14/18 09:00 Room Air 07/14/18 08:00 97.4 76 19 106/71 (83) 97 07/14/18 04:00 98.4 68 19 105/71 (82) 96 07/14/18 00:00 97.7 62 20 120/83 (95) 96 07/13/18 21:00 Room Air 07/13/18 20:00 97.8 71 19 123/79 (94) 93 07/13/18 16:02 98.1 67 20 107/73 (84) 98 07/13/18 11:55 97.5 65 17 106/54 (71) 99 Intake and Output 07/13/18 07/14/18 19:00 07:00 Intake Total 1860 ml 720 ml Output Total 600 ml 1200 ml Balance 1260 ml -480 ml Intake Oral 1080 ml IV Total 780 ml 720 ml Output Urine Total 600 ml 1200 ml Height (Feet): 6 Height (Inches): 0.00 Weight (Pounds): 182 General Appearance: WD/WN, no apparent distress, alert Cardiovascular: normal rate Respiratory/Chest: normal breath sounds, no respiratory distress Abdominal Exam: normal bowel sounds, non tender, soft Extremities: normal range of motion, non-tender Rodrigo Johnson NP Jul 14, 2018 10:39
--- NOTE | 2018-07-14 10:58 | Pulmonology Progress Note ---
Assessment/Plan Problems: (1) Abdominal pain (2) Anemia (3) HIV disease (4) Urinary tract infection (5) Hepatitis C Assessment/Plan improving tolerating diet GI/surgery evaluation appreciated dvt prophylaxis ID evaluation doing better Subjective ROS Limited/Unobtainable: No Constitutional: Reports: no symptoms HEENT: Repors: no symptoms Respiratory: Reports: no symptoms Allergies: Coded Allergies: No Known Allergies (Unverified , 10/23/16) Objective Last 24 Hour Vital Signs Date Time Temp Pulse Resp B/P (MAP) Pulse Ox O2 Delivery O2 Flow Rate FiO2 07/14/18 09:00 Room Air 07/14/18 08:00 97.4 76 19 106/71 (83) 97 07/14/18 04:00 98.4 68 19 105/71 (82) 96 07/14/18 00:00 97.7 62 20 120/83 (95) 96 07/13/18 21:00 Room Air 07/13/18 20:00 97.8 71 19 123/79 (94) 93 07/13/18 16:02 98.1 67 20 107/73 (84) 98 07/13/18 11:55 97.5 65 17 106/54 (71) 99 Intake and Output 07/13/18 07/14/18 19:00 07:00 Intake Total 1860 ml 720 ml Output Total 600 ml 1200 ml Balance 1260 ml -480 ml Intake Oral 1080 ml IV Total 780 ml 720 ml Output Urine Total 600 ml 1200 ml General Appearance: WD/WN HEENT: normocephalic, atraumatic Respiratory/Chest: chest wall non-tender, lungs clear Cardiovascular: normal peripheral pulses, regular rhythm Abdomen: normal bowel sounds, no mass Extremities: no cyanosis Skin: no rash Current Medications Medications (Trade) Dose Ordered Sig/Jan Route PRN Reason Start Time Stop Time Status Last Admin Dose Admin Acetaminophen (Tylenol) 325 mg Q6H PRN ORAL Mild Pain/Temp > 100.5 07/11/18 04:00 08/10/18 03:59 Acetaminophen (Tylenol) 1,000 mg Q6H PRN ORAL Moderate Pain (Pain Scale 4-6) 07/11/18 04:00 08/10/18 03:59 Aspirin (ASA) 81 mg DAILY ORAL 07/11/18 09:00 08/10/18 08:59 07/14/18 09:27 Dextrose (Dextrose 50%) 25 ml Q30M PRN IV Hypoglycemia 07/11/18 06:30 08/10/18 06:29 Dextrose (Dextrose 50%) 50 ml Q30M PRN IV Hypoglycemia 07/11/18 06:30 08/10/18 06:29 Dextrose/Sodium Chloride 1,000 ml @ 60 mls/hr [id number] IV 07/11/18 05:00 08/10/18 04:59 07/13/18 22:10 Docusate Sodium (Colace) 250 mg DAILY ORAL 07/11/18 09:00 08/10/18 08:59 07/14/18 09:29 Escitalopram Oxalate (Lexapro) 20 mg DAILY ORAL 07/11/18 09:00 08/10/18 08:59 07/14/18 09:32 Heparin Sodium (Porcine) (Heparin 5000 units/ml) 5,000 units EVERY 12 HOURS SUBQ 07/11/18 09:45 08/10/18 09:44 07/14/18 09:39 Insulin Detemir (Levemir) 8 units BEDTIME SUBQ 07/11/18 21:00 08/10/18 20:59 07/13/18 22:09 Iopamidol (Isovue-300 100ml) 100 ml NOW PRN INJ Radiology Procedure 07/10/18 18:15 Magnesium Hydroxide (Mom) 30 ml DAILY PRN ORAL Constipation 07/11/18 04:00 08/10/18 03:59 07/14/18 06:55 Metformin HCl (Glucophage) 1,000 mg DAILY ORAL 07/11/18 09:00 08/10/18 08:59 07/14/18 09:30 Morphine Sulfate (Morphine Sulfate) 2 mg Q4H PRN IVP Severe Pain (Pain Scale 7-10) 07/11/18 04:30 07/18/18 04:29 07/13/18 18:39 Pantoprazole (Protonix) 40 mg DAILY ORAL 07/11/18 09:00 08/10/18 08:59 07/14/18 09:33 Quetiapine Fumarate (SEROquel) 300 mg BEDTIME ORAL 07/11/18 21:00 08/10/18 20:59 07/13/18 22:08 Sodium Phosphate (Fleet's Sodium Phosl Enema) 133 ml DAILY PRN RECTAL Constipation 07/11/18 04:00 08/10/18 03:59 Trazodone HCl (Desyrel) 50 mg BEDTIME ORAL 07/11/18 21:00 08/10/18 20:59 07/13/18 22:07 Ino Harris MD Jul 14, 2018 10:58
--- NOTE | 2018-07-14 11:41 | Infectious Diseases Prog Note ---
Assessment/Plan Assessment/Plan ASSESSMENT: The patient is a 58-year-old male with SP abdominal pain CT of the abdomen unremarkable. Hx of HIV CD4 : 456 ( 06/2018) off ARVs ( since 2011) HIV V load: P Hepatitis C Ab + No evidence of acute bacterial infection / UTI Mild leukopenia History of schizophrenia. History of bowel obstruction, status post resection. History of diabetes. PLAN: will monitor the patient off of antibiotics. HIV viral load HIV serology Hepatitis C PCR need fup with out side HIV provider , to be started as out pt Subjective Allergies: Coded Allergies: No Known Allergies (Unverified , 10/23/16) Subjective comfortable Objective Vital Signs Last 24 Hour Vital Signs Date Time Temp Pulse Resp B/P (MAP) Pulse Ox O2 Delivery O2 Flow Rate FiO2 07/14/18 09:00 Room Air 07/14/18 08:00 97.4 76 19 106/71 (83) 97 07/14/18 04:00 98.4 68 19 105/71 (82) 96 07/14/18 00:00 97.7 62 20 120/83 (95) 96 07/13/18 21:00 Room Air 07/13/18 20:00 97.8 71 19 123/79 (94) 93 07/13/18 16:02 98.1 67 20 107/73 (84) 98 07/13/18 11:55 97.5 65 17 106/54 (71) 99 Height (Feet): 6 Height (Inches): 0.00 Weight (Pounds): 182 HEENT: anicteric Respiratory/Chest: no respiratory distress Cardiovascular: no gallop/murmur Abdomen: non distended Current Medications Medications (Trade) Dose Ordered Sig/Jan Route PRN Reason Start Time Stop Time Status Last Admin Dose Admin Acetaminophen (Tylenol) 325 mg Q6H PRN ORAL Mild Pain/Temp > 100.5 07/11/18 04:00 08/10/18 03:59 Acetaminophen (Tylenol) 1,000 mg Q6H PRN ORAL Moderate Pain (Pain Scale 4-6) 07/11/18 04:00 08/10/18 03:59 Aspirin (ASA) 81 mg DAILY ORAL 07/11/18 09:00 08/10/18 08:59 07/14/18 09:27 Dextrose (Dextrose 50%) 25 ml Q30M PRN IV Hypoglycemia 07/11/18 06:30 08/10/18 06:29 Dextrose (Dextrose 50%) 50 ml Q30M PRN IV Hypoglycemia 07/11/18 06:30 08/10/18 06:29 Dextrose/Sodium Chloride 1,000 ml @ 60 mls/hr [id number] IV 07/11/18 05:00 08/10/18 04:59 07/13/18 22:10 Docusate Sodium (Colace) 250 mg DAILY ORAL 07/11/18 09:00 08/10/18 08:59 07/14/18 09:29 Escitalopram Oxalate (Lexapro) 20 mg DAILY ORAL 07/11/18 09:00 08/10/18 08:59 07/14/18 09:32 Heparin Sodium (Porcine) (Heparin 5000 units/ml) 5,000 units EVERY 12 HOURS SUBQ 07/11/18 09:45 08/10/18 09:44 07/14/18 09:39 Insulin Detemir (Levemir) 8 units BEDTIME SUBQ 07/11/18 21:00 08/10/18 20:59 07/13/18 22:09 Iopamidol (Isovue-300 100ml) 100 ml NOW PRN INJ Radiology Procedure 07/10/18 18:15 Magnesium Hydroxide (Mom) 30 ml DAILY PRN ORAL Constipation 07/11/18 04:00 08/10/18 03:59 07/14/18 06:55 Metformin HCl (Glucophage) 1,000 mg DAILY ORAL 07/11/18 09:00 08/10/18 08:59 07/14/18 09:30 Morphine Sulfate (Morphine Sulfate) 2 mg Q4H PRN IVP Severe Pain (Pain Scale 7-10) 07/11/18 04:30 07/18/18 04:29 07/13/18 18:39 Pantoprazole (Protonix) 40 mg DAILY ORAL 07/11/18 09:00 08/10/18 08:59 07/14/18 09:33 Quetiapine Fumarate (SEROquel) 300 mg BEDTIME ORAL 07/11/18 21:00 08/10/18 20:59 07/13/18 22:08 Sodium Phosphate (Fleet's Sodium Phosl Enema) 133 ml DAILY PRN RECTAL Constipation 07/11/18 04:00 08/10/18 03:59 Trazodone HCl (Desyrel) 50 mg BEDTIME ORAL 07/11/18 21:00 08/10/18 20:59 07/13/18 22:07 Jacques Higgins MD Jul 14, 2018 11:41
[2018-07-14 12:00] VITALS: BP 118/75
[2018-07-14 12:00] LABS: BASOPHILS % (AUTO) 0.9 % (0.0-2.0); EOSINOPHILS % (AUTO) 6.5 % (0.0-3.0); HEMATOCRIT 34.5 % (42.0-52.0); LYMPHOCYTES % (AUTO) 42.5 % (20.0-45.0); MEAN CORPUSCULAR VOLUME 86 FL (80-99); MONOCYTES % (AUTO) 5.4 % (1.0-10.0); NEUTROPHILS % (AUTO) 44.6 % (45.0-75.0); PLATELET COUNT 225 K/UL (150-450); RED CELL DISTRIBUTION WIDTH 12.4 % (11.6-14.8); WHITE BLOOD COUNT 5.3 K/UL (4.8-10.8)
[2018-07-14 12:32] LABS: ANION GAP 12 mmol/L (5-15); BLOOD UREA NITROGEN 13 mg/dL (7-18); CALCIUM 8.7 MG/DL (8.5-10.1); CARBON DIOXIDE 21 MMOL/L (21-32); CHLORIDE 98 MMOL/L (98-107); CREATININE 0.8 MG/DL (0.55-1.30); SODIUM 131 MMOL/L (136-145)
--- NOTE | 2018-07-14 12:45 | Infectious Diseases Prog Note ---
Assessment/Plan Assessment/Plan ASSESSMENT: The patient is a 58-year-old male with SP abdominal pain CT of the abdomen unremarkable. Hx of HIV CD4 : 456 ( 06/2018) off ARVs ( since 2011) HIV V load: P Hepatitis C Ab + No evidence of acute bacterial infection / UTI Mild leukopenia History of schizophrenia. History of bowel obstruction, status post resection. History of diabetes. PLAN: will monitor the patient off of antibiotics. HIV viral load HIV serology Hepatitis C PCR need fup with out side HIV provider , to be started as out pt Subjective Allergies: Coded Allergies: No Known Allergies (Unverified , 10/23/16) Subjective comfortable Objective Vital Signs Last 24 Hour Vital Signs Date Time Temp Pulse Resp B/P (MAP) Pulse Ox O2 Delivery O2 Flow Rate FiO2 07/14/18 12:00 97.7 56 14 118/75 (89) 98 07/14/18 09:00 Room Air 07/14/18 08:00 97.4 76 19 106/71 (83) 97 07/14/18 04:00 98.4 68 19 105/71 (82) 96 07/14/18 00:00 97.7 62 20 120/83 (95) 96 07/13/18 21:00 Room Air 07/13/18 20:00 97.8 71 19 123/79 (94) 93 07/13/18 16:02 98.1 67 20 107/73 (84) 98 Height (Feet): 6 Height (Inches): 0.00 Weight (Pounds): 182 HEENT: anicteric Respiratory/Chest: no accessory muscle use Cardiovascular: regularly irregular Abdomen: no organomegaly Laboratory Tests Test 07/14/18 11:30 White Blood Count 5.3 K/UL (4.8-10.8) Red Blood Count 4.00 M/UL (4.70-6.10) L Hemoglobin 12.0 G/DL (14.2-18.0) L Hematocrit 34.5 % (42.0-52.0) L Mean Corpuscular Volume 86 FL (80-99) Mean Corpuscular Hemoglobin 29.9 PG (27.0-31.0) Mean Corpuscular Hemoglobin Concent 34.7 G/DL (32.0-36.0) Red Cell Distribution Width 12.4 % (11.6-14.8) Platelet Count 225 K/UL (150-450) Mean Platelet Volume 6.1 FL (6.5-10.1) L Neutrophils (%) (Auto) 44.6 % (45.0-75.0) L Lymphocytes (%) (Auto) 42.5 % (20.0-45.0) Monocytes (%) (Auto) 5.4 % (1.0-10.0) Eosinophils (%) (Auto) 6.5 % (0.0-3.0) H Basophils (%) (Auto) 0.9 % (0.0-2.0) Sodium Level 131 MMOL/L (136-145) L Potassium Level 4.0 MMOL/L (3.5-5.1) Chloride Level 98 MMOL/L (98-107) Carbon Dioxide Level 21 MMOL/L (21-32) Anion Gap 12 mmol/L (5-15) Blood Urea Nitrogen 13 mg/dL (7-18) Creatinine 0.8 MG/DL (0.55-1.30) Estimat Glomerular Filtration Rate > 60 mL/min (>60) Glucose Level 250 MG/DL (74-106) H Calcium Level 8.7 MG/DL (8.5-10.1) Current Medications Medications (Trade) Dose Ordered Sig/Jan Route PRN Reason Start Time Stop Time Status Last Admin Dose Admin Acetaminophen (Tylenol) 325 mg Q6H PRN ORAL Mild Pain/Temp > 100.5 07/11/18 04:00 08/10/18 03:59 Acetaminophen (Tylenol) 1,000 mg Q6H PRN ORAL Moderate Pain (Pain Scale 4-6) 07/11/18 04:00 08/10/18 03:59 Aspirin (ASA) 81 mg DAILY ORAL 07/11/18 09:00 08/10/18 08:59 07/14/18 09:27 Dextrose (Dextrose 50%) 25 ml Q30M PRN IV Hypoglycemia 07/11/18 06:30 08/10/18 06:29 Dextrose (Dextrose 50%) 50 ml Q30M PRN IV Hypoglycemia 07/11/18 06:30 08/10/18 06:29 Dextrose/Sodium Chloride 1,000 ml @ 60 mls/hr [id number] IV 07/11/18 05:00 08/10/18 04:59 07/13/18 22:10 Docusate Sodium (Colace) 250 mg DAILY ORAL 07/11/18 09:00 08/10/18 08:59 07/14/18 09:29 Escitalopram Oxalate (Lexapro) 20 mg DAILY ORAL 07/11/18 09:00 08/10/18 08:59 07/14/18 09:32 Heparin Sodium (Porcine) (Heparin 5000 units/ml) 5,000 units EVERY 12 HOURS SUBQ 07/11/18 09:45 08/10/18 09:44 07/14/18 09:39 Insulin Detemir (Levemir) 8 units BEDTIME SUBQ 07/11/18 21:00 08/10/18 20:59 07/13/18 22:09 Iopamidol (Isovue-300 100ml) 100 ml NOW PRN INJ Radiology Procedure 07/10/18 18:15 Magnesium Hydroxide (Mom) 30 ml DAILY PRN ORAL Constipation 07/11/18 04:00 08/10/18 03:59 07/14/18 06:55 Metformin HCl (Glucophage) 1,000 mg DAILY ORAL 07/11/18 09:00 08/10/18 08:59 07/14/18 09:30 Morphine Sulfate (Morphine Sulfate) 2 mg Q4H PRN IVP Severe Pain (Pain Scale 7-10) 07/11/18 04:30 07/18/18 04:29 07/13/18 18:39 Pantoprazole (Protonix) 40 mg DAILY ORAL 07/11/18 09:00 08/10/18 08:59 07/14/18 09:33 Quetiapine Fumarate (SEROquel) 300 mg BEDTIME ORAL 07/11/18 21:00 08/10/18 20:59 07/13/18 22:08 Sodium Phosphate (Fleet's Sodium Phosl Enema) 133 ml DAILY PRN RECTAL Constipation 07/11/18 04:00 08/10/18 03:59 Trazodone HCl (Desyrel) 50 mg BEDTIME ORAL 07/11/18 21:00 08/10/18 20:59 07/13/18 22:07 Jacques Higgins MD Jul 14, 2018 12:45
--- NOTE | 2018-07-14 13:22 | General Progress Note ---
Assessment/Plan Problem List: (1) Urinary tract infection ICD Codes: N39.0 - Urinary tract infection, site not specified SNOMED: 08816817 (2) Hepatitis C ICD Codes: B19.20 - Unspecified viral hepatitis C without hepatic coma SNOMED: 95434277 (3) Anemia ICD Codes: D64.9 - Anemia, unspecified SNOMED: 397396945 (4) Abdominal pain ICD Codes: R10.9 - Unspecified abdominal pain SNOMED: 15184928 (5) HIV disease ICD Codes: B20 - Human immunodeficiency virus [HIV] disease SNOMED: 81834043 Status: stable, progressing Assessment/Plan ot pt diet adv diet if possible abx dc to snf Subjective Constitutional: Reports: weakness Allergies: Coded Allergies: No Known Allergies (Unverified , 10/23/16) All Systems: reviewed and negative except above Subjective calm in bed ate ok Objective Last 24 Hour Vital Signs Date Time Temp Pulse Resp B/P (MAP) Pulse Ox O2 Delivery O2 Flow Rate FiO2 07/14/18 12:00 97.7 56 14 118/75 (89) 98 07/14/18 09:00 Room Air 07/14/18 08:00 97.4 76 19 106/71 (83) 97 07/14/18 04:00 98.4 68 19 105/71 (82) 96 07/14/18 00:00 97.7 62 20 120/83 (95) 96 07/13/18 21:00 Room Air 07/13/18 20:00 97.8 71 19 123/79 (94) 93 07/13/18 16:02 98.1 67 20 107/73 (84) 98 Intake and Output 07/13/18 07/14/18 19:00 07:00 Intake Total 1860 ml 720 ml Output Total 600 ml 1200 ml Balance 1260 ml -480 ml Intake Oral 1080 ml IV Total 780 ml 720 ml Output Urine Total 600 ml 1200 ml Laboratory Tests 07/14/18 11:30: White Blood Count 5.3, Red Blood Count 4.00L, Hemoglobin 12.0L, Hematocrit 34.5L , Mean Corpuscular Volume 86, Mean Corpuscular Hemoglobin 29.9, Mean Corpuscular Hemoglobin Concent 34.7, Red Cell Distribution Width 12.4, Platelet Count 225, Mean Platelet Volume 6.1L, Neutrophils (%) (Auto) 44.6L, Lymphocytes (%) (Auto) 42.5, Monocytes (%) (Auto) 5.4, Eosinophils (%) (Auto) 6.5H, Basophils (%) (Auto) 0.9, Sodium Level 131L, Potassium Level 4.0, Chloride Level 98, Carbon Dioxide Level 21, Anion Gap 12, Blood Urea Nitrogen 13, Creatinine 0.8, Estimat Glomerular Filtration Rate > 60, Glucose Level 250H, Calcium Level 8.7 Height (Feet): 6 Height (Inches): 0.00 Weight (Pounds): 182 General Appearance: alert EENT: normal ENT inspection Neck: normal alignment Cardiovascular: normal peripheral pulses, normal rate, regular rhythm Respiratory/Chest: chest wall non-tender, lungs clear, normal breath sounds Abdomen: normal bowel sounds, non tender, soft Extremities: normal inspection Edema: no edema noted Arm (L), no edema noted Arm (R), no edema noted Leg (L), no edema noted Leg (R), no edema noted Pedal (L), no edema noted Pedal (R), no edema noted Generalized Neurologic: responsive, motor weakness Skin: normal pigmentation, warm/dry Brain Chang DO Jul 14, 2018 13:22
[2018-07-14] MEDS ORDERED: HEPARIN SO5000 UNIT2 SUBQ (14:21)
[2018-07-14] MEDS ORDERED: LEVEMIR FL100 UNIT/1 SUBQ (14:22)
[2018-07-14] MEDS ORDERED: MOM30 ML ORAL (14:23)
[2018-07-14] MEDS ORDERED: [UNRECOGNIZED DRUG - CODE] IV (14:23)
[2018-07-14] MEDS ORDERED: PROTONIX40 MG ORAL (14:25)
[2018-07-14 16:00] VITALS: BP_SYST 106; BP_SYST 119; BP_DIAS 71; BP_DIAS 75
[2018-07-14] MEDS: D5 1/2NS 1,000 ML IV SCH (17:11)
[2018-07-14 20:00] VITALS: BP 117/75
[2018-07-14] MEDS: QUEtiapine 200mg tab ORAL SCH (20:29)
[2018-07-14] MEDS: TraZODone 50mg tab ORAL SCH (20:29)
[2018-07-14] MEDS: Levemir Flexpen SUBQ SCH (20:31)
[2018-07-14] MEDS: Morphine Sulfate 2mg/ml Inj IVP PRN (20:32)
[2018-07-15 00:30] VITALS: BP 120/72
[2018-07-15 04:00] VITALS: BP 95/65
[2018-07-15 08:00] VITALS: BP 103/72
[2018-07-15] MEDS: metFORMIN 500mg tab ORAL SCH (08:59)
[2018-07-15] MEDS: Docusate 250mg cap ORAL SCH (08:59)
[2018-07-15] MEDS: Aspirin Baby 81mg ORAL SCH (08:59)
[2018-07-15] MEDS: D5 1/2NS 1,000 ML IV SCH (09:02)
[2018-07-15] MEDS: Heparin 5000 units/ml inj SUBQ SCH ×2 (09:04→21:16)
[2018-07-15] MEDS: Morphine Sulfate 2mg/ml Inj IVP PRN ×2 (11:00→16:52)
--- NOTE | 2018-07-15 11:21 | GI Progress Note ---
Assessment/Plan Problems: (1) Abdominal pain ICD Codes: R10.9 - Unspecified abdominal pain SNOMED: 69113626 (2) Anemia ICD Codes: D64.9 - Anemia, unspecified SNOMED: 807670844 (3) Hepatitis C ICD Codes: B19.20 - Unspecified viral hepatitis C without hepatic coma SNOMED: 57764059 (4) HIV disease ICD Codes: B20 - Human immunodeficiency virus [HIV] disease SNOMED: 45037870 (5) Urinary tract infection ICD Codes: N39.0 - Urinary tract infection, site not specified SNOMED: 11595645 Status: stable Status Narrative Discussed with Dr. Billings. Assessment/Plan abdominal pain etiology unknown non specific neg CT for an acute finding history of SBO with resection per patient. adv diet ADA repeat labs ppi zofran prn pain control outpatient colonoscopy dc planning The patient was seen and examined at bedside and all new and available data was reviewed in the patients chart. I agree with the above findings, impression and plan. (Patient seen earlier today. Signature stamp does not reflect patient encounter time.). - David Billings MD Subjective Subjective abdominal pain improved Objective Last 24 Hour Vital Signs Date Time Temp Pulse Resp B/P (MAP) Pulse Ox O2 Delivery O2 Flow Rate FiO2 07/15/18 09:00 Room Air 07/15/18 08:00 98.3 3 18 103/72 (82) 97 07/15/18 04:00 97.9 75 19 95/65 (75) 100 07/15/18 00:30 98.9 75 19 120/72 (88) 96 07/14/18 21:02 98.3 07/14/18 20:21 Room Air 07/14/18 20:00 98.6 72 18 117/75 (89) 96 07/14/18 16:00 98.3 70 17 119/75 (90) 97 07/14/18 16:00 97.4 76 19 106/71 (83) 98 07/14/18 12:00 97.7 56 14 118/75 (89) 98 Intake and Output 07/14/18 07/15/18 19:00 07:00 Intake Total 2060 ml 1180 ml Output Total 850 ml Balance 2060 ml 330 ml Intake Oral 400 ml IV Total 540 ml 780 ml Other 1520 ml Output Urine Total 850 ml # Voids 4 Laboratory Tests Test 07/14/18 11:30 White Blood Count 5.3 K/UL (4.8-10.8) Red Blood Count 4.00 M/UL (4.70-6.10) L Hemoglobin 12.0 G/DL (14.2-18.0) L Hematocrit 34.5 % (42.0-52.0) L Mean Corpuscular Volume 86 FL (80-99) Mean Corpuscular Hemoglobin 29.9 PG (27.0-31.0) Mean Corpuscular Hemoglobin Concent 34.7 G/DL (32.0-36.0) Red Cell Distribution Width 12.4 % (11.6-14.8) Platelet Count 225 K/UL (150-450) Mean Platelet Volume 6.1 FL (6.5-10.1) L Neutrophils (%) (Auto) 44.6 % (45.0-75.0) L Lymphocytes (%) (Auto) 42.5 % (20.0-45.0) Monocytes (%) (Auto) 5.4 % (1.0-10.0) Eosinophils (%) (Auto) 6.5 % (0.0-3.0) H Basophils (%) (Auto) 0.9 % (0.0-2.0) Sodium Level 131 MMOL/L (136-145) L Potassium Level 4.0 MMOL/L (3.5-5.1) Chloride Level 98 MMOL/L (98-107) Carbon Dioxide Level 21 MMOL/L (21-32) Anion Gap 12 mmol/L (5-15) Blood Urea Nitrogen 13 mg/dL (7-18) Creatinine 0.8 MG/DL (0.55-1.30) Estimat Glomerular Filtration Rate > 60 mL/min (>60) Glucose Level 250 MG/DL (74-106) H Calcium Level 8.7 MG/DL (8.5-10.1) Height (Feet): 6 Height (Inches): 0.00 Weight (Pounds): 182 General Appearance: WD/WN, no apparent distress, alert Cardiovascular: normal rate Respiratory/Chest: normal breath sounds, no respiratory distress Abdominal Exam: normal bowel sounds, non tender, soft Extremities: normal range of motion, non-tender Rodrigo Johnson [employer] Jul 15, 2018 11:21
--- NOTE | 2018-07-15 11:42 | Infectious Diseases Prog Note ---
Assessment/Plan Assessment/Plan ASSESSMENT: The patient is a 58-year-old male with SP abdominal pain CT of the abdomen unremarkable. Hx of HIV CD4 : 456 ( 06/2018) off ARVs ( since 2011) HIV V load: 9300 Hepatitis C Ab + No evidence of acute bacterial infection / UTI Mild leukopenia History of schizophrenia. History of bowel obstruction, status post resection. History of diabetes. PLAN: will monitor the patient off of antibiotics. Hepatitis C PCR need fup with out side HIV provider , to be started as out pt Subjective Allergies: Coded Allergies: No Known Allergies (Unverified , 10/23/16) Subjective comfortable Objective Vital Signs Last 24 Hour Vital Signs Date Time Temp Pulse Resp B/P (MAP) Pulse Ox O2 Delivery O2 Flow Rate FiO2 07/15/18 09:00 Room Air 07/15/18 08:00 98.3 3 18 103/72 (82) 97 07/15/18 04:00 97.9 75 19 95/65 (75) 100 07/15/18 00:30 98.9 75 19 120/72 (88) 96 07/14/18 21:02 98.3 07/14/18 20:21 Room Air 07/14/18 20:00 98.6 72 18 117/75 (89) 96 07/14/18 16:00 98.3 70 17 119/75 (90) 97 07/14/18 16:00 97.4 76 19 106/71 (83) 98 07/14/18 12:00 97.7 56 14 118/75 (89) 98 Height (Feet): 6 Height (Inches): 0.00 Weight (Pounds): 182 HEENT: anicteric Respiratory/Chest: normal breath sounds Cardiovascular: regular rhythm Abdomen: no organomegaly Current Medications Medications (Trade) Dose Ordered Sig/Jan Route PRN Reason Start Time Stop Time Status Last Admin Dose Admin Acetaminophen (Tylenol) 325 mg Q6H PRN ORAL Mild Pain/Temp > 100.5 07/11/18 04:00 08/10/18 03:59 Acetaminophen (Tylenol) 1,000 mg Q6H PRN ORAL Moderate Pain (Pain Scale 4-6) 07/11/18 04:00 08/10/18 03:59 Aspirin (ASA) 81 mg DAILY ORAL 07/11/18 09:00 08/10/18 08:59 07/15/18 08:59 Dextrose (Dextrose 50%) 25 ml Q30M PRN IV Hypoglycemia 07/11/18 06:30 08/10/18 06:29 Dextrose (Dextrose 50%) 50 ml Q30M PRN IV Hypoglycemia 07/11/18 06:30 08/10/18 06:29 Dextrose/Sodium Chloride 1,000 ml @ 60 mls/hr [id number] IV 07/11/18 05:00 08/10/18 04:59 07/15/18 09:02 Docusate Sodium (Colace) 250 mg DAILY ORAL 07/11/18 09:00 08/10/18 08:59 07/15/18 08:59 Escitalopram Oxalate (Lexapro) 20 mg DAILY ORAL 07/11/18 09:00 08/10/18 08:59 07/15/18 09:00 Heparin Sodium (Porcine) (Heparin 5000 units/ml) 5,000 units EVERY 12 HOURS SUBQ 07/11/18 09:45 08/10/18 09:44 07/15/18 09:04 Insulin Detemir (Levemir) 8 units BEDTIME SUBQ 07/11/18 21:00 08/10/18 20:59 07/14/18 20:31 Iopamidol (Isovue-300 100ml) 100 ml NOW PRN INJ Radiology Procedure 07/10/18 18:15 Magnesium Hydroxide (Mom) 30 ml DAILY PRN ORAL Constipation 07/11/18 04:00 08/10/18 03:59 07/14/18 06:55 Metformin HCl (Glucophage) 1,000 mg DAILY ORAL 07/11/18 09:00 08/10/18 08:59 07/15/18 08:59 Morphine Sulfate (Morphine Sulfate) 2 mg Q4H PRN IVP Severe Pain (Pain Scale 7-10) 07/11/18 04:30 07/18/18 04:29 07/15/18 11:00 Pantoprazole (Protonix) 40 mg DAILY ORAL 07/11/18 09:00 08/10/18 08:59 07/15/18 09:00 Quetiapine Fumarate (SEROquel) 300 mg BEDTIME ORAL 07/11/18 21:00 08/10/18 20:59 07/14/18 20:29 Sodium Phosphate (Fleet's Sodium Phosl Enema) 133 ml DAILY PRN RECTAL Constipation 07/11/18 04:00 08/10/18 03:59 Trazodone HCl (Desyrel) 50 mg BEDTIME ORAL 07/11/18 21:00 08/10/18 20:59 07/14/18 20:29 Jacques Higgins MD Jul 15, 2018 11:42
--- NOTE | 2018-07-15 11:52 | Pulmonology Progress Note ---
Assessment/Plan Problems: (1) Abdominal pain (2) Anemia (3) HIV disease (4) Urinary tract infection (5) Hepatitis C Assessment/Plan improving tolerating diet GI/surgery evaluation appreciated dvt prophylaxis ID evaluation doing better Subjective ROS Limited/Unobtainable: No Constitutional: Reports: no symptoms HEENT: Repors: no symptoms Respiratory: Reports: no symptoms Allergies: Coded Allergies: No Known Allergies (Unverified , 10/23/16) Objective Last 24 Hour Vital Signs Date Time Temp Pulse Resp B/P (MAP) Pulse Ox O2 Delivery O2 Flow Rate FiO2 07/15/18 11:30 98.3 07/15/18 09:00 Room Air 07/15/18 08:00 98.3 3 18 103/72 (82) 97 07/15/18 04:00 97.9 75 19 95/65 (75) 100 07/15/18 00:30 98.9 75 19 120/72 (88) 96 07/14/18 20:21 Room Air 07/14/18 20:00 98.6 72 18 117/75 (89) 96 07/14/18 16:00 98.3 70 17 119/75 (90) 97 07/14/18 16:00 97.4 76 19 106/71 (83) 98 07/14/18 12:00 97.7 56 14 118/75 (89) 98 Intake and Output 07/14/18 07/15/18 19:00 07:00 Intake Total 2060 ml 1180 ml Output Total 850 ml Balance 2060 ml 330 ml Intake Oral 400 ml IV Total 540 ml 780 ml Other 1520 ml Output Urine Total 850 ml # Voids 4 General Appearance: WD/WN HEENT: normocephalic, atraumatic Respiratory/Chest: chest wall non-tender, lungs clear Cardiovascular: normal peripheral pulses, normal rate Abdomen: normal bowel sounds, soft, non tender Skin: no rash, no lesions Current Medications Medications (Trade) Dose Ordered Sig/Jan Route PRN Reason Start Time Stop Time Status Last Admin Dose Admin Acetaminophen (Tylenol) 325 mg Q6H PRN ORAL Mild Pain/Temp > 100.5 07/11/18 04:00 08/10/18 03:59 Acetaminophen (Tylenol) 1,000 mg Q6H PRN ORAL Moderate Pain (Pain Scale 4-6) 07/11/18 04:00 08/10/18 03:59 Aspirin (ASA) 81 mg DAILY ORAL 07/11/18 09:00 08/10/18 08:59 07/15/18 08:59 Dextrose (Dextrose 50%) 25 ml Q30M PRN IV Hypoglycemia 07/11/18 06:30 08/10/18 06:29 Dextrose (Dextrose 50%) 50 ml Q30M PRN IV Hypoglycemia 07/11/18 06:30 08/10/18 06:29 Dextrose/Sodium Chloride 1,000 ml @ 60 mls/hr [id number] IV 07/11/18 05:00 08/10/18 04:59 07/15/18 09:02 Docusate Sodium (Colace) 250 mg DAILY ORAL 07/11/18 09:00 08/10/18 08:59 07/15/18 08:59 Escitalopram Oxalate (Lexapro) 20 mg DAILY ORAL 07/11/18 09:00 08/10/18 08:59 07/15/18 09:00 Heparin Sodium (Porcine) (Heparin 5000 units/ml) 5,000 units EVERY 12 HOURS SUBQ 07/11/18 09:45 08/10/18 09:44 07/15/18 09:04 Insulin Detemir (Levemir) 8 units BEDTIME SUBQ 07/11/18 21:00 08/10/18 20:59 07/14/18 20:31 Iopamidol (Isovue-300 100ml) 100 ml NOW PRN INJ Radiology Procedure 07/10/18 18:15 Magnesium Hydroxide (Mom) 30 ml DAILY PRN ORAL Constipation 07/11/18 04:00 08/10/18 03:59 07/14/18 06:55 Metformin HCl (Glucophage) 1,000 mg DAILY ORAL 07/11/18 09:00 08/10/18 08:59 07/15/18 08:59 Morphine Sulfate (Morphine Sulfate) 2 mg Q4H PRN IVP Severe Pain (Pain Scale 7-10) 07/11/18 04:30 07/18/18 04:29 07/15/18 11:00 Pantoprazole (Protonix) 40 mg DAILY ORAL 07/11/18 09:00 08/10/18 08:59 07/15/18 09:00 Quetiapine Fumarate (SEROquel) 300 mg BEDTIME ORAL 07/11/18 21:00 08/10/18 20:59 07/14/18 20:29 Sodium Phosphate (Fleet's Sodium Phosl Enema) 133 ml DAILY PRN RECTAL Constipation 07/11/18 04:00 08/10/18 03:59 Trazodone HCl (Desyrel) 50 mg BEDTIME ORAL 07/11/18 21:00 08/10/18 20:59 07/14/18 20:29 Ino Harris MD Jul 15, 2018 11:52
[2018-07-15 12:00] VITALS: BP 115/71
--- NOTE | 2018-07-15 13:58 | General Progress Note ---
Assessment/Plan Problem List: (1) Urinary tract infection ICD Codes: N39.0 - Urinary tract infection, site not specified SNOMED: 78097956 (2) Hepatitis C ICD Codes: B19.20 - Unspecified viral hepatitis C without hepatic coma SNOMED: 82364523 (3) Anemia ICD Codes: D64.9 - Anemia, unspecified SNOMED: 166076061 (4) Abdominal pain ICD Codes: R10.9 - Unspecified abdominal pain SNOMED: 44252667 (5) HIV disease ICD Codes: B20 - Human immunodeficiency virus [HIV] disease SNOMED: 50057572 Status: doing well, stable Assessment/Plan ot pt diet adv diet if possible abx dc to snf Subjective Constitutional: Reports: weakness Allergies: Coded Allergies: No Known Allergies (Unverified , 10/23/16) All Systems: reviewed and negative except above Subjective calm sleepy in bed Objective Last 24 Hour Vital Signs Date Time Temp Pulse Resp B/P (MAP) Pulse Ox O2 Delivery O2 Flow Rate FiO2 07/15/18 12:00 98.2 67 18 115/71 (86) 97 07/15/18 11:30 98.3 07/15/18 09:00 Room Air 07/15/18 08:00 98.3 73 18 103/72 (82) 97 07/15/18 04:00 97.9 75 19 95/65 (75) 100 07/15/18 00:30 98.9 75 19 120/72 (88) 96 07/14/18 20:21 Room Air 07/14/18 20:00 98.6 72 18 117/75 (89) 96 07/14/18 16:00 98.3 70 17 119/75 (90) 97 07/14/18 16:00 97.4 76 19 106/71 (83) 98 Intake and Output 07/14/18 07/15/18 19:00 07:00 Intake Total 2060 ml 1180 ml Output Total 850 ml Balance 2060 ml 330 ml Intake Oral 400 ml IV Total 540 ml 780 ml Other 1520 ml Output Urine Total 850 ml # Voids 4 Height (Feet): 6 Height (Inches): 0.00 Weight (Pounds): 182 General Appearance: lethargic EENT: normal ENT inspection Neck: normal alignment Cardiovascular: normal peripheral pulses, normal rate, regular rhythm Respiratory/Chest: chest wall non-tender, lungs clear, normal breath sounds Abdomen: normal bowel sounds, non tender, soft Extremities: normal inspection Edema: no edema noted Arm (L), no edema noted Arm (R), no edema noted Leg (L), no edema noted Leg (R), no edema noted Pedal (L), no edema noted Pedal (R), no edema noted Generalized Neurologic: motor weakness Skin: normal pigmentation, warm/dry Brain Chang DO Jul 15, 2018 13:58
[2018-07-15 16:00] VITALS: BP 105/71
[2018-07-15 20:00] VITALS: BP 107/70
[2018-07-15] MEDS: TraZODone 50mg tab ORAL SCH (21:15)
[2018-07-15] MEDS: QUEtiapine 200mg tab ORAL SCH (21:15)
[2018-07-15] MEDS: Levemir Flexpen SUBQ SCH (21:17)
[2018-07-16] MEDS: D5 1/2NS 1,000 ML IV SCH ×2 (01:52→17:18)
[2018-07-16 04:00] VITALS: BP 94/62
[2018-07-16 08:00] VITALS: BP 98/71
[2018-07-16] MEDS: Aspirin Baby 81mg ORAL SCH (09:20)
[2018-07-16] MEDS: metFORMIN 500mg tab ORAL SCH (09:20)
[2018-07-16] MEDS: Docusate 250mg cap ORAL SCH (09:20)
[2018-07-16] MEDS: Heparin 5000 units/ml inj SUBQ SCH ×2 (09:21→21:10)
[2018-07-16] MEDS: Morphine Sulfate 2mg/ml Inj IVP PRN ×3 (09:28→20:14)
--- NOTE | 2018-07-16 11:51 | Pulmonology Progress Note ---
Assessment/Plan Problems: (1) Abdominal pain (2) Anemia (3) HIV disease (4) Urinary tract infection (5) Hepatitis C Assessment/Plan improving tolerating diet GI/surgery evaluation appreciated dvt prophylaxis doing better dc planning in progress Subjective ROS Limited/Unobtainable: No Constitutional: Reports: no symptoms HEENT: Repors: no symptoms Respiratory: Reports: no symptoms Allergies: Coded Allergies: No Known Allergies (Unverified , 10/23/16) Objective Last 24 Hour Vital Signs Date Time Temp Pulse Resp B/P (MAP) Pulse Ox O2 Delivery O2 Flow Rate FiO2 07/16/18 09:58 98.1 07/16/18 09:00 Room Air 07/16/18 08:00 98.1 72 20 98/71 (80) 97 07/16/18 04:00 97.5 87 20 94/62 (73) 99 07/16/18 00:00 18 07/15/18 21:00 Room Air 07/15/18 20:00 98.4 72 20 107/70 (82) 99 07/15/18 16:00 99.0 68 18 105/71 (82) 97 07/15/18 12:00 98.2 67 18 115/71 (86) 97 Intake and Output 07/15/18 07/16/18 19:00 07:00 Intake Total 960 ml 720 ml Output Total 200 ml 800 ml Balance 760 ml -80 ml Intake Oral 300 ml IV Total 660 ml 720 ml Output Urine Total 200 ml 800 ml General Appearance: WD/WN HEENT: normocephalic, atraumatic Respiratory/Chest: chest wall non-tender, lungs clear Cardiovascular: normal peripheral pulses, normal rate Abdomen: normal bowel sounds, soft, non tender, no scars Extremities: no cyanosis Skin: no rash, no lesions Current Medications Medications (Trade) Dose Ordered Sig/Jan Route PRN Reason Start Time Stop Time Status Last Admin Dose Admin Acetaminophen (Tylenol) 325 mg Q6H PRN ORAL Mild Pain/Temp > 100.5 07/11/18 04:00 08/10/18 03:59 Acetaminophen (Tylenol) 1,000 mg Q6H PRN ORAL Moderate Pain (Pain Scale 4-6) 07/11/18 04:00 08/10/18 03:59 Aspirin (ASA) 81 mg DAILY ORAL 07/11/18 09:00 08/10/18 08:59 07/16/18 09:20 Dextrose (Dextrose 50%) 25 ml Q30M PRN IV Hypoglycemia 07/11/18 06:30 08/10/18 06:29 Dextrose (Dextrose 50%) 50 ml Q30M PRN IV Hypoglycemia 07/11/18 06:30 08/10/18 06:29 Dextrose/Sodium Chloride 1,000 ml @ 60 mls/hr [id number] IV 07/11/18 05:00 08/10/18 04:59 07/16/18 01:52 Docusate Sodium (Colace) 250 mg DAILY ORAL 07/11/18 09:00 08/10/18 08:59 07/16/18 09:20 Escitalopram Oxalate (Lexapro) 20 mg DAILY ORAL 07/11/18 09:00 08/10/18 08:59 07/16/18 09:20 Heparin Sodium (Porcine) (Heparin 5000 units/ml) 5,000 units EVERY 12 HOURS SUBQ 07/11/18 09:45 08/10/18 09:44 07/16/18 09:21 Insulin Detemir (Levemir) 8 units BEDTIME SUBQ 07/11/18 21:00 08/10/18 20:59 07/15/18 21:17 Iopamidol (Isovue-300 100ml) 100 ml NOW PRN INJ Radiology Procedure 07/10/18 18:15 Magnesium Hydroxide (Mom) 30 ml DAILY PRN ORAL Constipation 07/11/18 04:00 08/10/18 03:59 07/14/18 06:55 Metformin HCl (Glucophage) 1,000 mg DAILY ORAL 07/11/18 09:00 08/10/18 08:59 07/16/18 09:20 Morphine Sulfate (Morphine Sulfate) 2 mg Q4H PRN IVP Severe Pain (Pain Scale 7-10) 07/11/18 04:30 07/18/18 04:29 07/16/18 09:28 Pantoprazole (Protonix) 40 mg DAILY ORAL 07/11/18 09:00 08/10/18 08:59 07/16/18 09:20 Quetiapine Fumarate (SEROquel) 300 mg BEDTIME ORAL 07/11/18 21:00 08/10/18 20:59 07/15/18 21:15 Sodium Phosphate (Fleet's Sodium Phosl Enema) 133 ml DAILY PRN RECTAL Constipation 07/11/18 04:00 08/10/18 03:59 Trazodone HCl (Desyrel) 50 mg BEDTIME ORAL 07/11/18 21:00 08/10/18 20:59 07/15/18 21:15 Ino Harris MD Jul 16, 2018 11:51
[2018-07-16 12:00] VITALS: BP 111/70
--- NOTE | 2018-07-16 13:13 | General Progress Note ---
Assessment/Plan Problem List: (1) Urinary tract infection ICD Codes: N39.0 - Urinary tract infection, site not specified SNOMED: 20527617 (2) Hepatitis C ICD Codes: B19.20 - Unspecified viral hepatitis C without hepatic coma SNOMED: 63930795 (3) Anemia ICD Codes: D64.9 - Anemia, unspecified SNOMED: 953614327 (4) Abdominal pain ICD Codes: R10.9 - Unspecified abdominal pain SNOMED: 33606120 (5) HIV disease ICD Codes: B20 - Human immunodeficiency virus [HIV] disease SNOMED: 13252039 Status: stable, progressing Assessment/Plan ot pt diet adv diet if possible abx cbc bmp am dc to snf Subjective Constitutional: Reports: weakness Allergies: Coded Allergies: No Known Allergies (Unverified , 10/23/16) All Systems: reviewed and negative except above Subjective calm in bed Objective Last 24 Hour Vital Signs Date Time Temp Pulse Resp B/P (MAP) Pulse Ox O2 Delivery O2 Flow Rate FiO2 07/16/18 12:00 97.8 67 20 111/70 (84) 97 07/16/18 09:58 98.1 07/16/18 09:00 Room Air 07/16/18 08:00 98.1 72 20 98/71 (80) 97 07/16/18 04:00 97.5 87 20 94/62 (73) 99 07/16/18 00:00 18 07/15/18 21:00 Room Air 07/15/18 20:00 98.4 72 20 107/70 (82) 99 07/15/18 16:00 99.0 68 18 105/71 (82) 97 Intake and Output 07/15/18 07/16/18 19:00 07:00 Intake Total 960 ml 720 ml Output Total 200 ml 800 ml Balance 760 ml -80 ml Intake Oral 300 ml IV Total 660 ml 720 ml Output Urine Total 200 ml 800 ml Height (Feet): 6 Height (Inches): 0.00 Weight (Pounds): 182 General Appearance: alert EENT: normal ENT inspection Neck: normal alignment Cardiovascular: normal peripheral pulses, normal rate, regular rhythm Respiratory/Chest: chest wall non-tender, lungs clear, normal breath sounds Abdomen: normal bowel sounds, non tender, soft Extremities: normal inspection Edema: no edema noted Arm (L), no edema noted Arm (R), no edema noted Leg (L), no edema noted Leg (R), no edema noted Pedal (L), no edema noted Pedal (R), no edema noted Generalized Neurologic: responsive, motor weakness Skin: normal pigmentation, warm/dry Brain Chang DO Jul 16, 2018 13:13
--- NOTE | 2018-07-16 13:36 | GI Progress Note ---
Assessment/Plan Problems: (1) Abdominal pain ICD Codes: R10.9 - Unspecified abdominal pain SNOMED: 52175179 (2) Anemia ICD Codes: D64.9 - Anemia, unspecified SNOMED: 493659374 (3) Hepatitis C ICD Codes: B19.20 - Unspecified viral hepatitis C without hepatic coma SNOMED: 97367548 (4) HIV disease ICD Codes: B20 - Human immunodeficiency virus [HIV] disease SNOMED: 17158287 (5) Urinary tract infection ICD Codes: N39.0 - Urinary tract infection, site not specified SNOMED: 33254933 Status: stable Status Narrative Discussed with Dr. Billings. Assessment/Plan abdominal pain etiology unknown non specific neg CT for an acute finding history of SBO with resection per patient. okay for DC per GI standpoint adv diet ADA repeat labs ppi zofran prn pain control outpatient colonoscopy The patient was seen and examined at bedside and all new and available data was reviewed in the patients chart. I agree with the above findings, impression and plan. (Patient seen earlier today. Signature stamp does not reflect patient encounter time.). - David Billings MD Subjective Subjective abdominal pain improved Objective Last 24 Hour Vital Signs Date Time Temp Pulse Resp B/P (MAP) Pulse Ox O2 Delivery O2 Flow Rate FiO2 07/16/18 12:00 97.8 67 20 111/70 (84) 97 07/16/18 09:58 98.1 07/16/18 09:00 Room Air 07/16/18 08:00 98.1 72 20 98/71 (80) 97 07/16/18 04:00 97.5 87 20 94/62 (73) 99 07/16/18 00:00 18 07/15/18 21:00 Room Air 07/15/18 20:00 98.4 72 20 107/70 (82) 99 07/15/18 16:00 99.0 68 18 105/71 (82) 97 Intake and Output 07/15/18 07/16/18 19:00 07:00 Intake Total 960 ml 720 ml Output Total 200 ml 800 ml Balance 760 ml -80 ml Intake Oral 300 ml IV Total 660 ml 720 ml Output Urine Total 200 ml 800 ml Height (Feet): 6 Height (Inches): 0.00 Weight (Pounds): 182 General Appearance: WD/WN, no apparent distress, alert Cardiovascular: normal rate Respiratory/Chest: normal breath sounds, no respiratory distress Abdominal Exam: normal bowel sounds, non tender, soft Extremities: normal range of motion, non-tender Rodrigo Johnson NP Jul 16, 2018 13:36
[2018-07-16 16:00] VITALS: BP 114/67
[2018-07-16] MEDS: NovoLOG Insulin Flexpen SUBQ SCH ×2 (16:41→21:11)
--- NOTE | 2018-07-16 17:01 | Infectious Diseases Prog Note ---
Assessment/Plan Assessment/Plan ASSESSMENT: The patient is a 58-year-old male with SP abdominal pain CT of the abdomen unremarkable. Hx of HIV CD4 : 456 ( 06/2018) off ARVs ( since 2011) probable non progressor HIV V load: 9300 Hepatitis C Ab + No evidence of acute bacterial infection / UTI Mild leukopenia History of schizophrenia. History of bowel obstruction, status post resection. History of diabetes. PLAN: will monitor the patient off of antibiotics. Hepatitis C PCR need fup with out side HIV provider , to be started as out pt Subjective Allergies: Coded Allergies: No Known Allergies (Unverified , 10/23/16) Subjective Afebrile comfortable Objective Vital Signs Last 24 Hour Vital Signs Date Time Temp Pulse Resp B/P (MAP) Pulse Ox O2 Delivery O2 Flow Rate FiO2 07/16/18 16:00 97.9 74 18 114/67 (83) 96 07/16/18 15:23 97.8 07/16/18 12:00 97.8 67 20 111/70 (84) 97 07/16/18 09:00 Room Air 07/16/18 08:00 98.1 72 20 98/71 (80) 97 07/16/18 04:00 97.5 87 20 94/62 (73) 99 07/16/18 00:00 18 07/15/18 21:00 Room Air 07/15/18 20:00 98.4 72 20 107/70 (82) 99 Height (Feet): 6 Height (Inches): 0.00 Weight (Pounds): 182 HEENT: anicteric Respiratory/Chest: no respiratory distress Cardiovascular: regularly irregular Abdomen: no organomegaly Current Medications Medications (Trade) Dose Ordered Sig/Jan Route PRN Reason Start Time Stop Time Status Last Admin Dose Admin Acetaminophen (Tylenol) 325 mg Q6H PRN ORAL Mild Pain/Temp > 100.5 07/11/18 04:00 08/10/18 03:59 Acetaminophen (Tylenol) 1,000 mg Q6H PRN ORAL Moderate Pain (Pain Scale 4-6) 07/11/18 04:00 08/10/18 03:59 Aspirin (ASA) 81 mg DAILY ORAL 07/11/18 09:00 08/10/18 08:59 07/16/18 09:20 Dextrose (Dextrose 50%) 25 ml Q30M PRN IV Hypoglycemia 07/11/18 06:30 08/10/18 06:29 Dextrose (Dextrose 50%) 50 ml Q30M PRN IV Hypoglycemia 07/11/18 06:30 08/10/18 06:29 Dextrose/Sodium Chloride 1,000 ml @ 60 mls/hr [id number] IV 07/11/18 05:00 08/10/18 04:59 07/16/18 01:52 Docusate Sodium (Colace) 250 mg DAILY ORAL 07/11/18 09:00 08/10/18 08:59 07/16/18 09:20 Escitalopram Oxalate (Lexapro) 20 mg DAILY ORAL 07/11/18 09:00 08/10/18 08:59 07/16/18 09:20 Heparin Sodium (Porcine) (Heparin 5000 units/ml) 5,000 units EVERY 12 HOURS SUBQ 07/11/18 09:45 08/10/18 09:44 07/16/18 09:21 Insulin Aspart (NovoLOG) BEFORE MEALS AND HS SUBQ 07/16/18 16:30 08/15/18 16:29 07/16/18 16:41 Insulin Detemir (Levemir) 8 units BEDTIME SUBQ 07/11/18 21:00 08/10/18 20:59 07/15/18 21:17 Iopamidol (Isovue-300 100ml) 100 ml NOW PRN INJ Radiology Procedure 07/10/18 18:15 Magnesium Hydroxide (Mom) 30 ml DAILY PRN ORAL Constipation 07/11/18 04:00 08/10/18 03:59 07/14/18 06:55 Metformin HCl (Glucophage) 1,000 mg DAILY ORAL 07/11/18 09:00 08/10/18 08:59 07/16/18 09:20 Morphine Sulfate (Morphine Sulfate) 2 mg Q4H PRN IVP Severe Pain (Pain Scale 7-10) 07/11/18 04:30 07/18/18 04:29 07/16/18 14:53 Pantoprazole (Protonix) 40 mg DAILY ORAL 07/11/18 09:00 08/10/18 08:59 07/16/18 09:20 Quetiapine Fumarate (SEROquel) 300 mg BEDTIME ORAL 07/11/18 21:00 08/10/18 20:59 07/15/18 21:15 Sodium Phosphate (Fleet's Sodium Phosl Enema) 133 ml DAILY PRN RECTAL Constipation 07/11/18 04:00 08/10/18 03:59 Trazodone HCl (Desyrel) 50 mg BEDTIME ORAL 07/11/18 21:00 08/10/18 20:59 07/15/18 21:15 Jacques Higgins MD Jul 16, 2018 17:01
[2018-07-16 20:00] VITALS: BP 106/73
[2018-07-16] MEDS: QUEtiapine 200mg tab ORAL SCH (21:07)
[2018-07-16] MEDS: TraZODone 50mg tab ORAL SCH (21:08)
[2018-07-16] MEDS: Levemir Flexpen SUBQ SCH (21:11)
[2018-07-17] VITALS: BP 103/73
[2018-07-17] MEDS: Morphine Sulfate 2mg/ml Inj IVP PRN ×5 (00:46→21:21)
[2018-07-17 03:54] VITALS: BP 113/64
[2018-07-17] MEDS: NovoLOG Insulin Flexpen SUBQ SCH ×4 (06:19→21:17)
--- NOTE | 2018-07-17 07:13 | General Progress Note ---
Assessment/Plan Problem List: (1) Urinary tract infection ICD Codes: N39.0 - Urinary tract infection, site not specified SNOMED: 43259816 (2) Hepatitis C ICD Codes: B19.20 - Unspecified viral hepatitis C without hepatic coma SNOMED: 19234755 (3) Anemia ICD Codes: D64.9 - Anemia, unspecified SNOMED: 426971171 (4) Abdominal pain ICD Codes: R10.9 - Unspecified abdominal pain SNOMED: 63633709 (5) HIV disease ICD Codes: B20 - Human immunodeficiency virus [HIV] disease SNOMED: 53913755 Status: stable, progressing Assessment/Plan ot pt diet adv diet if possible abx cbc bmp am dc to snf Subjective Constitutional: Reports: weakness Allergies: Coded Allergies: No Known Allergies (Unverified , 10/23/16) All Systems: reviewed and negative except above Subjective calm in bed Objective Last 24 Hour Vital Signs Date Time Temp Pulse Resp B/P (MAP) Pulse Ox O2 Delivery O2 Flow Rate FiO2 07/17/18 03:54 97.6 62 18 113/64 (80) 95 07/17/18 00:00 98.1 70 18 103/73 (83) 96 07/16/18 21:00 Room Air 07/16/18 20:00 97.8 72 18 106/73 (84) 95 07/16/18 16:00 97.9 74 18 114/67 (83) 96 07/16/18 15:23 97.8 07/16/18 12:00 97.8 67 20 111/70 (84) 97 07/16/18 09:00 Room Air 07/16/18 08:00 98.1 72 20 98/71 (80) 97 Intake and Output 07/16/18 07/17/18 18:59 06:59 Intake Total 1140 ml 960 ml Output Total 1100 ml 800 ml Balance 40 ml 160 ml Intake Oral 480 ml 240 ml IV Total 660 ml 720 ml Output Urine Total 1100 ml 800 ml # Voids 1 Height (Feet): 6 Height (Inches): 0.00 Weight (Pounds): 182 General Appearance: lethargic EENT: normal ENT inspection Neck: normal alignment Cardiovascular: normal peripheral pulses, normal rate, regular rhythm Respiratory/Chest: chest wall non-tender, lungs clear, normal breath sounds Abdomen: normal bowel sounds, non tender, soft Extremities: normal inspection Edema: no edema noted Arm (L), no edema noted Arm (R), no edema noted Leg (L), no edema noted Leg (R), no edema noted Pedal (L), no edema noted Pedal (R), no edema noted Generalized Neurologic: motor weakness Skin: normal pigmentation, warm/dry Brain Chang DO Jul 17, 2018 07:13
[2018-07-17 08:00] VITALS: BP 100/64
--- NOTE | 2018-07-17 08:04 | Infectious Diseases Prog Note ---
Assessment/Plan Assessment/Plan ASSESSMENT: The patient is a 58-year-old male with SP abdominal pain CT of the abdomen unremarkable. Hx of HIV CD4 : 456 ( 06/2018) off ARVs ( since 2011) probable non progressor HIV V load: 9300 Hepatitis C Ab + No evidence of acute bacterial infection / UTI Mild leukopenia History of schizophrenia. History of bowel obstruction, status post resection. History of diabetes. PLAN: - Continue to monitor the patient off of antibiotics. - Hepatitis C PCR - Will need fup with out side HIV provider , to be started on ARV Tx as out pt Subjective Allergies: Coded Allergies: No Known Allergies (Unverified , 10/23/16) Subjective Patient says he is doing well Afebrile Mild abdominal pain that is controlled with meds Objective Vital Signs Last 24 Hour Vital Signs Date Time Temp Pulse Resp B/P (MAP) Pulse Ox O2 Delivery O2 Flow Rate FiO2 07/17/18 03:54 97.6 62 18 113/64 (80) 95 07/17/18 00:00 98.1 70 18 103/73 (83) 96 07/16/18 21:00 Room Air 07/16/18 20:00 97.8 72 18 106/73 (84) 95 07/16/18 16:00 97.9 74 18 114/67 (83) 96 07/16/18 15:23 97.8 07/16/18 12:00 97.8 67 20 111/70 (84) 97 07/16/18 09:00 Room Air Height (Feet): 6 Height (Inches): 0.00 Weight (Pounds): 182 Objective HEENT: NCAT, MMM Respiratory/Chest: no respiratory distress Cardiovascular: regularly irregular Abdomen: Soft, NT Current Medications Medications (Trade) Dose Ordered Sig/Jan Route PRN Reason Start Time Stop Time Status Last Admin Dose Admin Acetaminophen (Tylenol) 325 mg Q6H PRN ORAL Mild Pain/Temp > 100.5 07/11/18 04:00 08/10/18 03:59 Acetaminophen (Tylenol) 1,000 mg Q6H PRN ORAL Moderate Pain (Pain Scale 4-6) 07/11/18 04:00 08/10/18 03:59 Aspirin (ASA) 81 mg DAILY ORAL 07/11/18 09:00 08/10/18 08:59 07/16/18 09:20 Dextrose (Dextrose 50%) 25 ml Q30M PRN IV Hypoglycemia 07/11/18 06:30 08/10/18 06:29 Dextrose (Dextrose 50%) 50 ml Q30M PRN IV Hypoglycemia 07/11/18 06:30 08/10/18 06:29 Dextrose/Sodium Chloride 1,000 ml @ 60 mls/hr [id number] IV 07/11/18 05:00 08/10/18 04:59 07/16/18 17:18 Docusate Sodium (Colace) 250 mg DAILY ORAL 07/11/18 09:00 08/10/18 08:59 07/16/18 09:20 Escitalopram Oxalate (Lexapro) 20 mg DAILY ORAL 07/11/18 09:00 08/10/18 08:59 07/16/18 09:20 Heparin Sodium (Porcine) (Heparin 5000 units/ml) 5,000 units EVERY 12 HOURS SUBQ 07/11/18 09:45 08/10/18 09:44 07/16/18 21:10 Insulin Aspart (NovoLOG) BEFORE MEALS AND HS SUBQ 07/16/18 16:30 08/15/18 16:29 07/17/18 06:19 Insulin Detemir (Levemir) 8 units BEDTIME SUBQ 07/11/18 21:00 08/10/18 20:59 07/16/18 21:11 Iopamidol (Isovue-300 100ml) 100 ml NOW PRN INJ Radiology Procedure 07/10/18 18:15 Magnesium Hydroxide (Mom) 30 ml DAILY PRN ORAL Constipation 07/11/18 04:00 08/10/18 03:59 07/14/18 06:55 Metformin HCl (Glucophage) 1,000 mg DAILY ORAL 07/11/18 09:00 08/10/18 08:59 07/16/18 09:20 Morphine Sulfate (Morphine Sulfate) 2 mg Q4H PRN IVP Severe Pain (Pain Scale 7-10) 07/11/18 04:30 07/18/18 04:29 07/17/18 00:46 Pantoprazole (Protonix) 40 mg DAILY ORAL 07/11/18 09:00 08/10/18 08:59 07/16/18 09:20 Quetiapine Fumarate (SEROquel) 300 mg BEDTIME ORAL 07/11/18 21:00 08/10/18 20:59 07/16/18 21:07 Sodium Phosphate (Fleet's Sodium Phosl Enema) 133 ml DAILY PRN RECTAL Constipation 07/11/18 04:00 08/10/18 03:59 Trazodone HCl (Desyrel) 50 mg BEDTIME ORAL 07/11/18 21:00 08/10/18 20:59 07/16/18 21:08 Gibran Monahan MD Jul 17, 2018 08:04
[2018-07-17] MEDS: Aspirin Baby 81mg ORAL SCH (08:06)
[2018-07-17] MEDS: Docusate 250mg cap ORAL SCH (08:06)
[2018-07-17] MEDS: metFORMIN 500mg tab ORAL SCH (08:06)
[2018-07-17] MEDS: Heparin 5000 units/ml inj SUBQ SCH ×2 (08:07→21:16)
[2018-07-17] MEDS: D5 1/2NS 1,000 ML IV SCH (11:45)
[2018-07-17 12:00] VITALS: BP 102/60
[2018-07-17 15:50] VITALS: BP 108/60
--- NOTE | 2018-07-17 18:09 | General Progress Note ---
Assessment/Plan Assessment/Plan Assessment (1) Abdominal pain ICD Codes: R10.9 - Unspecified abdominal pain SNOMED: 66839814 (2) Anemia ICD Codes: D64.9 - Anemia, unspecified SNOMED: 040533686 (3) Hepatitis C ICD Codes: B19.20 - Unspecified viral hepatitis C without hepatic coma SNOMED: 62126420 (4) HIV disease ICD Codes: B20 - Human immunodeficiency virus [HIV] disease SNOMED: 73432429 (5) Urinary tract infection ICD Codes: N39.0 - Urinary tract infection, site not specified SNOMED: 76541418 Status: stable Assessment/Plan abdominal pain etiology unknown non specific neg CT for an acute finding history of SBO with resection per patient. okay for DC per GI standpoint adv diet ADA repeat labs ppi zofran prn pain control outpatient colonoscopy Subjective Allergies: Coded Allergies: No Known Allergies (Unverified , 10/23/16) Subjective Feels OK some abdominal pain tolerating PO (+) BM Objective Last 24 Hour Vital Signs Date Time Temp Pulse Resp B/P (MAP) Pulse Ox O2 Delivery O2 Flow Rate FiO2 07/17/18 15:50 97.6 70 18 108/60 (76) 95 07/17/18 12:00 98.0 79 18 102/60 (74) 95 07/17/18 09:00 Room Air 07/17/18 08:00 98.1 79 18 100/64 (76) 95 07/17/18 03:54 97.6 62 18 113/64 (80) 95 07/17/18 00:00 98.1 70 18 103/73 (83) 96 07/16/18 21:00 Room Air 07/16/18 20:00 97.8 72 18 106/73 (84) 95 Intake and Output 07/16/18 07/17/18 19:00 07:00 Intake Total 1140 ml 960 ml Output Total 1100 ml 800 ml Balance 40 ml 160 ml Intake Oral 480 ml 240 ml IV Total 660 ml 720 ml Output Urine Total 1100 ml 800 ml # Voids 1 Height (Feet): 6 Height (Inches): 0.00 Weight (Pounds): 182 Objective WDWN AA man NCAT supple CTA RRR abd soft, large midline scar no edema Zeyad Goodman MD Jul 17, 2018 18:09
[2018-07-17 20:00] VITALS: BP 100/66
[2018-07-17] MEDS: TraZODone 50mg tab ORAL SCH (21:15)
[2018-07-17] MEDS: QUEtiapine 200mg tab ORAL SCH (21:15)
[2018-07-17] MEDS: Levemir Flexpen SUBQ SCH (21:19)
[2018-07-18] VITALS: BP 108/62
[2018-07-18 04:00] VITALS: BP 125/77
[2018-07-18] MEDS: D5 1/2NS 1,000 ML IV SCH (05:20)
[2018-07-18] MEDS: NovoLOG Insulin Flexpen SUBQ SCH ×4 (06:28→21:25)
[2018-07-18 08:00] VITALS: BP 99/62
--- NOTE | 2018-07-18 08:19 | General Progress Note ---
Assessment/Plan Problem List: (1) Urinary tract infection ICD Codes: N39.0 - Urinary tract infection, site not specified SNOMED: 50671691 (2) Hepatitis C ICD Codes: B19.20 - Unspecified viral hepatitis C without hepatic coma SNOMED: 32746616 (3) Anemia ICD Codes: D64.9 - Anemia, unspecified SNOMED: 230043278 (4) Abdominal pain ICD Codes: R10.9 - Unspecified abdominal pain SNOMED: 68106799 (5) HIV disease ICD Codes: B20 - Human immunodeficiency virus [HIV] disease SNOMED: 02476354 Status: stable, progressing Assessment/Plan ot pt diet adv diet if possible abx cbc bmp am dc to snf Subjective Constitutional: Reports: weakness Allergies: Coded Allergies: No Known Allergies (Unverified , 10/23/16) All Systems: reviewed and negative except above Subjective calm in bed sleepy Objective Last 24 Hour Vital Signs Date Time Temp Pulse Resp B/P (MAP) Pulse Ox O2 Delivery O2 Flow Rate FiO2 07/18/18 08:00 97.9 70 17 99/62 (74) 94 07/18/18 04:00 97.3 72 20 125/77 (93) 97 07/18/18 00:00 97.6 69 20 108/62 (77) 98 07/17/18 21:00 Room Air 07/17/18 20:00 98.8 70 20 100/66 (77) 98 07/17/18 15:50 97.6 70 18 108/60 (76) 95 07/17/18 12:00 98.0 79 18 102/60 (74) 95 07/17/18 09:00 Room Air Intake and Output 07/17/18 07/18/18 18:59 06:59 Intake Total 900 ml 720 ml Output Total 800 ml 1600 ml Balance 100 ml -880 ml Intake Oral 900 ml IV Total 720 ml Output Urine Total 800 ml 1600 ml Height (Feet): 6 Height (Inches): 0.00 Weight (Pounds): 182 General Appearance: lethargic EENT: normal ENT inspection Neck: normal alignment Cardiovascular: normal peripheral pulses, normal rate, regular rhythm Respiratory/Chest: chest wall non-tender, lungs clear, normal breath sounds Abdomen: normal bowel sounds, non tender, soft Extremities: normal inspection Edema: no edema noted Arm (L), no edema noted Arm (R), no edema noted Leg (L), no edema noted Leg (R), no edema noted Pedal (L), no edema noted Pedal (R), no edema noted Generalized Neurologic: motor weakness Skin: normal pigmentation, warm/dry Brain Chang DO Jul 18, 2018 08:19
[2018-07-18] MEDS: Aspirin Baby 81mg ORAL SCH (09:22)
[2018-07-18] MEDS: metFORMIN 500mg tab ORAL SCH (09:22)
[2018-07-18] MEDS: Docusate 250mg cap ORAL SCH (09:22)
[2018-07-18] MEDS: Morphine Sulfate 2mg/ml Inj IVP PRN ×3 (09:23→20:09)
[2018-07-18] MEDS: Heparin 5000 units/ml inj SUBQ SCH ×2 (09:24→21:23)
--- NOTE | 2018-07-18 11:01 | General Progress Note ---
Assessment/Plan Assessment/Plan Assessment (1) Abdominal pain ICD Codes: R10.9 - Unspecified abdominal pain SNOMED: 04385571 (2) Anemia ICD Codes: D64.9 - Anemia, unspecified SNOMED: 939506488 (3) Hepatitis C ICD Codes: B19.20 - Unspecified viral hepatitis C without hepatic coma SNOMED: 78757826 (4) HIV disease ICD Codes: B20 - Human immunodeficiency virus [HIV] disease SNOMED: 15247769 (5) Urinary tract infection ICD Codes: N39.0 - Urinary tract infection, site not specified SNOMED: 56519156 Status: stable Assessment/Plan abdominal pain etiology unknown non specific neg CT for an acute finding history of SBO with resection per patient. okay for DC per GI standpoint adv diet ADA repeat labs ppi zofran prn pain control outpatient colonoscopy Subjective Allergies: Coded Allergies: No Known Allergies (Unverified , 10/23/16) Subjective Feels OK some abdominal pain tolerating PO (+) BM Objective Last 24 Hour Vital Signs Date Time Temp Pulse Resp B/P (MAP) Pulse Ox O2 Delivery O2 Flow Rate FiO2 07/18/18 09:00 Room Air 07/18/18 08:00 97.9 70 17 99/62 (74) 94 07/18/18 04:00 97.3 72 20 125/77 (93) 97 07/18/18 00:00 97.6 69 20 108/62 (77) 98 07/17/18 21:00 Room Air 07/17/18 20:00 98.8 70 20 100/66 (77) 98 07/17/18 15:50 97.6 70 18 108/60 (76) 95 07/17/18 12:00 98.0 79 18 102/60 (74) 95 Intake and Output 07/17/18 07/18/18 18:59 06:59 Intake Total 900 ml 720 ml Output Total 800 ml 1600 ml Balance 100 ml -880 ml Intake Oral 900 ml IV Total 720 ml Output Urine Total 800 ml 1600 ml Height (Feet): 6 Height (Inches): 0.00 Weight (Pounds): 182 Objective WDWN AA man NCAT supple CTA RRR abd soft, large midline scar no edema Zeyad Goodman MD Jul 18, 2018 11:01
[2018-07-18 12:00] VITALS: BP 96/64
[2018-07-18 15:55] VITALS: BP 93/69
[2018-07-18 20:00] VITALS: BP 115/91
[2018-07-18] MEDS ORDERED: Levemir Flexpen SUBQ SCH (21:00)
[2018-07-18] MEDS: QUEtiapine 200mg tab ORAL SCH (21:21)
[2018-07-18] MEDS: TraZODone 50mg tab ORAL SCH (21:21)
--- NOTE | 2018-07-18 22:14 | Consultation ---
DATE OF CONSULTATION: 07/18/2018 ENDOCRINOLOGY CONSULTATION CONSULTING PHYSICIAN: Colton Nunez M.D. REFERRING PHYSICIAN: Brain Chang D.O. REASON FOR CONSULTATION: Diabetes management. HISTORY OF PRESENT ILLNESS: The patient is a 58-year-old male with a history of diabetes, diagnosed in 1994. Initially, started on metformin and glipizide and later on, insulin was added. Currently, he is on insulin, long-acting and short-acting and metformin as an outpatient. Admitted to the hospital. Glucose was out of control. Sodium was low in the 120s. Endocrinology was consulted in order to assist in the management of diabetes. Her glucose values are over 200 mg/dL, currently receiving D5 half NS. Last reading on his sodium was 131 on July 14. PAST MEDICAL HISTORY: 1. Diabetes. 2. Hypertension. 3. HIV. PAST SURGICAL HISTORY: None. FAMILY HISTORY: Diabetes. REVIEW OF SYSTEMS: A 12-point review of systems was performed. The pertinent positives and negatives are mentioned in the present illness. SOCIAL HISTORY: No smoking, alcohol, or drug use. LABORATORY VALUES: WBC 6.7, hemoglobin 9.3, hematocrit 28.5, and platelets of 284,000. Sodium is 131, potassium 4.2, chloride 98, bicarbonate 21, BUN 13, creatinine 0.8, and glucose of 250. Amylase 132 and lipase 83. PHYSICAL EXAMINATION: GENERAL: He is awake and alert. VITAL SIGNS: Blood pressure is 99/62, pulse of 70, temperature 97.9, and respiratory rate 14. HEENT: Pupils are equal and reactive to light and accommodation. Sclerae anicteric. NECK: No JVD. No thyromegaly. No bruit. LUNGS: Clear. HEART: Regular rate and rhythm. ABDOMEN: Positive bowel sounds. EXTREMITIES: No clubbing, cyanosis, or edema. DIAGNOSES: 1. Diabetes out of control. 2. HIV. 3. Hyponatremia. PLAN: 1. Discontinue D5 half NS. 2. Increase Levemir from 8 to 12 units at bedtime. 3. Continue metformin as is. 4. Continue NovoLog sliding scale before meals and at bedtime. 5. Further adjustment according to blood glucose values. I will follow the patient closely during hospital stay. Thank you, Dr. Chang, for the courtesy of this consultation. Colton Nunez M.D. DR: PARAMJIT JOB#: [id number] CC: LELO
[2018-07-19] VITALS: BP 111/77
[2018-07-19] MEDS: Morphine Sulfate 2mg/ml Inj IVP PRN ×5 (00:38→19:40)
[2018-07-19 04:00] VITALS: BP 111/78
[2018-07-19] MEDS: NovoLOG Insulin Flexpen SUBQ SCH ×4 (06:10→21:20)
--- NOTE | 2018-07-19 07:15 | General Progress Note ---
Assessment/Plan Problem List: (1) Diabetes mellitus out of control ICD Codes: E11.65 - Type 2 diabetes mellitus with hyperglycemia SNOMED: 54779188, 978256819 (2) HIV disease ICD Codes: B20 - Human immunodeficiency virus [HIV] disease SNOMED: 86713067 (3) Abdominal pain ICD Codes: R10.9 - Unspecified abdominal pain SNOMED: 41119967 Assessment/Plan increase Levemir to 18 units qhs increase Metformin to 1000 mg bid continue NISS ac / hs Subjective Allergies: Coded Allergies: No Known Allergies (Unverified , 10/23/16) All Systems: reviewed and negative except above Subjective events noted Objective Last 24 Hour Vital Signs Date Time Temp Pulse Resp B/P (MAP) Pulse Ox O2 Delivery O2 Flow Rate FiO2 07/19/18 04:00 98.2 71 20 111/78 (89) 98 07/19/18 00:00 98.7 78 19 111/77 (88) 96 07/18/18 21:00 Room Air 07/18/18 20:00 98.7 65 18 115/91 (99) 100 07/18/18 15:55 97.3 74 16 93/69 (77) 94 07/18/18 12:00 97.1 70 22 96/64 (75) 99 07/18/18 09:53 97.9 07/18/18 09:00 Room Air 07/18/18 08:00 97.9 70 17 99/62 (74) 94 Intake and Output 07/18/18 07/19/18 19:00 07:00 Intake Total 800 ml Output Total 200 ml 1200 ml Balance 600 ml -1200 ml Other 800 ml Output Urine Total 200 ml 1200 ml # Voids 4 # Bowel Movements 1 Height (Feet): 6 Height (Inches): 0.00 Weight (Pounds): 182 General Appearance: no apparent distress Neck: normal alignment Cardiovascular: normal rate Respiratory/Chest: lungs clear Abdomen: normal bowel sounds Pelvis: normal external exam Objective Current Medications Medications (Trade) Dose Ordered Sig/Jan Route PRN Reason Start Time Stop Time Status Last Admin Dose Admin Acetaminophen (Tylenol) 325 mg Q6H PRN ORAL Mild Pain/Temp > 100.5 07/11/18 04:00 08/10/18 03:59 Acetaminophen (Tylenol) 1,000 mg Q6H PRN ORAL Moderate Pain (Pain Scale 4-6) 07/11/18 04:00 08/10/18 03:59 Aspirin (ASA) 81 mg DAILY ORAL 07/11/18 09:00 08/10/18 08:59 07/18/18 09:22 Dextrose (Dextrose 50%) 25 ml Q30M PRN IV Hypoglycemia 07/11/18 06:30 08/10/18 06:29 Dextrose (Dextrose 50%) 50 ml Q30M PRN IV Hypoglycemia 07/11/18 06:30 08/10/18 06:29 Docusate Sodium (Colace) 250 mg DAILY ORAL 07/11/18 09:00 08/10/18 08:59 07/18/18 09:22 Escitalopram Oxalate (Lexapro) 20 mg DAILY ORAL 07/11/18 09:00 08/10/18 08:59 07/17/18 08:06 Heparin Sodium (Porcine) (Heparin 5000 units/ml) 5,000 units EVERY 12 HOURS SUBQ 07/11/18 09:45 08/10/18 09:44 07/18/18 21:23 Insulin Aspart (NovoLOG) BEFORE MEALS AND HS SUBQ 07/16/18 16:30 08/15/18 16:29 07/19/18 06:10 Insulin Detemir (Levemir) 12 units BEDTIME SUBQ 07/18/18 21:00 08/10/18 20:59 07/18/18 21:24 Iopamidol (Isovue-300 100ml) 100 ml NOW PRN INJ Radiology Procedure 07/10/18 18:15 Magnesium Hydroxide (Mom) 30 ml DAILY PRN ORAL Constipation 07/11/18 04:00 08/10/18 03:59 07/14/18 06:55 Metformin HCl (Glucophage) 1,000 mg DAILY ORAL 07/11/18 09:00 08/10/18 08:59 07/18/18 09:22 Morphine Sulfate (Morphine Sulfate) 2 mg Q4H PRN IVP Severe Pain (Pain Scale 7-10) 07/18/18 09:00 07/25/18 08:59 07/19/18 06:07 Pantoprazole (Protonix) 40 mg DAILY ORAL 07/11/18 09:00 08/10/18 08:59 07/18/18 09:22 Quetiapine Fumarate (SEROquel) 300 mg BEDTIME ORAL 07/11/18 21:00 08/10/18 20:59 07/18/18 21:21 Sodium Phosphate (Fleet's Sodium Phosl Enema) 133 ml DAILY PRN RECTAL Constipation 07/11/18 04:00 08/10/18 03:59 Trazodone HCl (Desyrel) 50 mg BEDTIME ORAL 07/11/18 21:00 08/10/18 20:59 07/18/18 21:21 Item Value Date Time Bedside Blood Glucose 238 mg/dl H 07/19/18 0611 Bedside Blood Glucose 190 mg/dl H 07/18/18 2125 Bedside Blood Glucose 161 mg/dl H 07/18/18 1621 Bedside Blood Glucose 227 mg/dl H 07/18/18 1200 Bedside Blood Glucose 204 mg/dl H 07/18/18 0630 Colton Nunez MD Jul 19, 2018 07:15
[2018-07-19 07:33] LABS: BASOPHILS % (AUTO) 1.1 % (0.0-2.0); HEMOGLOBIN 12.3 G/DL (14.2-18.0); MEAN CORPUSCULAR VOLUME 87 FL (80-99); MONOCYTES % (AUTO) 5.7 % (1.0-10.0); NEUTROPHILS % (AUTO) 38.3 % (45.0-75.0); PLATELET COUNT 200 K/UL (150-450); RED BLOOD COUNT 3.89 M/UL (4.70-6.10); RED CELL DISTRIBUTION WIDTH 12.6 % (11.6-14.8); WHITE BLOOD COUNT 5.1 K/UL (4.8-10.8)
[2018-07-19 08:00] VITALS: BP 106/76
[2018-07-19 08:12] LABS: ANION GAP 8 mmol/L (5-15); BLOOD UREA NITROGEN 13 mg/dL (7-18); CALCIUM 8.8 MG/DL (8.5-10.1); CARBON DIOXIDE 23 MMOL/L (21-32); CHLORIDE 100 MMOL/L (98-107); CREATININE 0.8 MG/DL (0.55-1.30); POTASSIUM 3.8 MMOL/L (3.5-5.1); SODIUM 131 MMOL/L (136-145)
[2018-07-19] MEDS: Docusate 250mg cap ORAL SCH (08:43)
[2018-07-19] MEDS: Aspirin Baby 81mg ORAL SCH (08:44)
[2018-07-19] MEDS: Heparin 5000 units/ml inj SUBQ SCH ×2 (08:47→21:21)
[2018-07-19] MEDS: metFORMIN 500mg tab ORAL SCH ×2 (08:48→17:42)
--- NOTE | 2018-07-19 11:32 | Infectious Diseases Prog Note ---
Assessment/Plan Assessment/Plan ASSESSMENT: The patient is a 58-year-old male with SP abdominal pain CT of the abdomen unremarkable. Hx of HIV CD4 : 456 ( 06/2018) off ARVs ( since 2011) probable non progressor HIV V load: 9300 Hepatitis C Ab + No evidence of acute bacterial infection / UTI Mild leukopenia History of schizophrenia. History of bowel obstruction, status post resection. History of diabetes. PLAN: will monitor the patient off of antibiotics. Hepatitis C PCR need fup with out side HIV provider , to be started as out pt Subjective Allergies: Coded Allergies: No Known Allergies (Unverified , 10/23/16) Subjective Afebrile comfortable Objective Vital Signs Last 24 Hour Vital Signs Date Time Temp Pulse Resp B/P (MAP) Pulse Ox O2 Delivery O2 Flow Rate FiO2 07/19/18 09:00 Room Air 07/19/18 08:00 98.5 72 19 106/76 (86) 94 07/19/18 04:00 98.2 71 20 111/78 (89) 98 07/19/18 00:00 98.7 78 19 111/77 (88) 96 07/18/18 21:00 Room Air 07/18/18 20:00 98.7 65 18 115/91 (99) 100 07/18/18 15:55 97.3 74 16 93/69 (77) 94 07/18/18 12:00 97.1 70 22 96/64 (75) 99 Height (Feet): 6 Height (Inches): 0.00 Weight (Pounds): 182 HEENT: atraumatic Respiratory/Chest: no respiratory distress Cardiovascular: regularly irregular Laboratory Tests Test 07/19/18 06:40 White Blood Count 5.1 K/UL (4.8-10.8) Red Blood Count 3.89 M/UL (4.70-6.10) L Hemoglobin 12.3 G/DL (14.2-18.0) L Hematocrit 34.0 % (42.0-52.0) L Mean Corpuscular Volume 87 FL (80-99) Mean Corpuscular Hemoglobin 31.6 PG (27.0-31.0) H Mean Corpuscular Hemoglobin Concent 36.2 G/DL (32.0-36.0) H Red Cell Distribution Width 12.6 % (11.6-14.8) Platelet Count 200 K/UL (150-450) Mean Platelet Volume 6.4 FL (6.5-10.1) L Neutrophils (%) (Auto) 38.3 % (45.0-75.0) L Lymphocytes (%) (Auto) 45.0 % (20.0-45.0) Monocytes (%) (Auto) 5.7 % (1.0-10.0) Eosinophils (%) (Auto) 10.0 % (0.0-3.0) H Basophils (%) (Auto) 1.1 % (0.0-2.0) Sodium Level 131 MMOL/L (136-145) L Potassium Level 3.8 MMOL/L (3.5-5.1) Chloride Level 100 MMOL/L (98-107) Carbon Dioxide Level 23 MMOL/L (21-32) Anion Gap 8 mmol/L (5-15) Blood Urea Nitrogen 13 mg/dL (7-18) Creatinine 0.8 MG/DL (0.55-1.30) Estimat Glomerular Filtration Rate > 60 mL/min (>60) Glucose Level 207 MG/DL (74-106) H Calcium Level 8.8 MG/DL (8.5-10.1) Current Medications Medications (Trade) Dose Ordered Sig/Jan Route PRN Reason Start Time Stop Time Status Last Admin Dose Admin Acetaminophen (Tylenol) 325 mg Q6H PRN ORAL Mild Pain/Temp > 100.5 07/11/18 04:00 08/10/18 03:59 Acetaminophen (Tylenol) 1,000 mg Q6H PRN ORAL Moderate Pain (Pain Scale 4-6) 07/11/18 04:00 08/10/18 03:59 Aspirin (ASA) 81 mg DAILY ORAL 07/11/18 09:00 08/10/18 08:59 07/19/18 08:44 Dextrose (Dextrose 50%) 25 ml Q30M PRN IV Hypoglycemia 07/11/18 06:30 08/10/18 06:29 Dextrose (Dextrose 50%) 50 ml Q30M PRN IV Hypoglycemia 07/11/18 06:30 08/10/18 06:29 Docusate Sodium (Colace) 250 mg DAILY ORAL 07/11/18 09:00 08/10/18 08:59 07/19/18 08:43 Escitalopram Oxalate (Lexapro) 20 mg DAILY ORAL 07/11/18 09:00 08/10/18 08:59 07/19/18 08:44 Heparin Sodium (Porcine) (Heparin 5000 units/ml) 5,000 units EVERY 12 HOURS SUBQ 07/11/18 09:45 08/10/18 09:44 07/19/18 08:47 Insulin Aspart (NovoLOG) BEFORE MEALS AND HS SUBQ 07/16/18 16:30 08/15/18 16:29 07/19/18 06:10 Insulin Detemir (Levemir) 18 units BEDTIME SUBQ 07/19/18 21:00 08/10/18 20:59 Magnesium Hydroxide (Mom) 30 ml DAILY PRN ORAL Constipation 07/11/18 04:00 08/10/18 03:59 07/14/18 06:55 Metformin HCl (Glucophage) 1,000 mg BID ORAL 07/19/18 09:00 08/10/18 08:59 07/19/18 08:48 Morphine Sulfate (Morphine Sulfate) 2 mg Q4H PRN IVP Severe Pain (Pain Scale 7-10) 07/18/18 09:00 07/25/18 08:59 07/19/18 10:15 Pantoprazole (Protonix) 40 mg DAILY ORAL 07/11/18 09:00 08/10/18 08:59 07/19/18 08:45 Quetiapine Fumarate (SEROquel) 300 mg BEDTIME ORAL 07/11/18 21:00 08/10/18 20:59 07/18/18 21:21 Sodium Phosphate (Fleet's Sodium Phosl Enema) 133 ml DAILY PRN RECTAL Constipation 07/11/18 04:00 08/10/18 03:59 Trazodone HCl (Desyrel) 50 mg BEDTIME ORAL 07/11/18 21:00 08/10/18 20:59 07/18/18 21:21 Jacques Higgins MD Jul 19, 2018 11:32
--- NOTE | 2018-07-19 11:48 | GI Progress Note ---
Assessment/Plan Problems: (1) Abdominal pain ICD Codes: R10.9 - Unspecified abdominal pain SNOMED: 63864949 (2) Anemia ICD Codes: D64.9 - Anemia, unspecified SNOMED: 016723039 (3) Hepatitis C ICD Codes: B19.20 - Unspecified viral hepatitis C without hepatic coma SNOMED: 56463461 (4) HIV disease ICD Codes: B20 - Human immunodeficiency virus [HIV] disease SNOMED: 78340259 (5) Urinary tract infection ICD Codes: N39.0 - Urinary tract infection, site not specified SNOMED: 11829186 Status: stable Status Narrative Discussed with Dr. Billings. Assessment/Plan abdominal pain etiology unknown non specific neg CT for an acute finding history of SBO with resection per patient. okay for DC per GI standpoint adv diet ADA repeat labs ppi zofran prn pain control outpatient colonoscopy The patient was seen and examined at bedside and all new and available data was reviewed in the patients chart. I agree with the above findings, impression and plan. (Patient seen earlier today. Signature stamp does not reflect patient encounter time.). - David Billings MD Subjective Subjective abdominal pain improved Objective Last 24 Hour Vital Signs Date Time Temp Pulse Resp B/P (MAP) Pulse Ox O2 Delivery O2 Flow Rate FiO2 07/19/18 10:45 98.5 07/19/18 09:00 Room Air 07/19/18 08:00 98.5 72 19 106/76 (86) 94 07/19/18 04:00 98.2 71 20 111/78 (89) 98 07/19/18 00:00 98.7 78 19 111/77 (88) 96 07/18/18 21:00 Room Air 07/18/18 20:00 98.7 65 18 115/91 (99) 100 07/18/18 15:55 97.3 74 16 93/69 (77) 94 07/18/18 12:00 97.1 70 22 96/64 (75) 99 Intake and Output 07/18/18 07/19/18 18:59 06:59 Intake Total 800 ml Output Total 200 ml 1200 ml Balance 600 ml -1200 ml Other 800 ml Output Urine Total 200 ml 1200 ml # Voids 4 # Bowel Movements 1 Laboratory Tests Test 07/19/18 06:40 White Blood Count 5.1 K/UL (4.8-10.8) Red Blood Count 3.89 M/UL (4.70-6.10) L Hemoglobin 12.3 G/DL (14.2-18.0) L Hematocrit 34.0 % (42.0-52.0) L Mean Corpuscular Volume 87 FL (80-99) Mean Corpuscular Hemoglobin 31.6 PG (27.0-31.0) H Mean Corpuscular Hemoglobin Concent 36.2 G/DL (32.0-36.0) H Red Cell Distribution Width 12.6 % (11.6-14.8) Platelet Count 200 K/UL (150-450) Mean Platelet Volume 6.4 FL (6.5-10.1) L Neutrophils (%) (Auto) 38.3 % (45.0-75.0) L Lymphocytes (%) (Auto) 45.0 % (20.0-45.0) Monocytes (%) (Auto) 5.7 % (1.0-10.0) Eosinophils (%) (Auto) 10.0 % (0.0-3.0) H Basophils (%) (Auto) 1.1 % (0.0-2.0) Sodium Level 131 MMOL/L (136-145) L Potassium Level 3.8 MMOL/L (3.5-5.1) Chloride Level 100 MMOL/L (98-107) Carbon Dioxide Level 23 MMOL/L (21-32) Anion Gap 8 mmol/L (5-15) Blood Urea Nitrogen 13 mg/dL (7-18) Creatinine 0.8 MG/DL (0.55-1.30) Estimat Glomerular Filtration Rate > 60 mL/min (>60) Glucose Level 207 MG/DL (74-106) H Calcium Level 8.8 MG/DL (8.5-10.1) Height (Feet): 6 Height (Inches): 0.00 Weight (Pounds): 182 General Appearance: WD/WN, no apparent distress, alert Cardiovascular: normal rate Respiratory/Chest: normal breath sounds, no respiratory distress Abdominal Exam: normal bowel sounds, non tender, soft Extremities: normal range of motion, non-tender Rodrigo Johnson REGISTERED NURSE HH CASE MANAGER Jul 19, 2018 11:48
[2018-07-19 12:00] VITALS: BP 118/79
[2018-07-19] MEDS ORDERED: SEROQUEL200 MG ORAL (12:52)
[2018-07-19] MEDS ORDERED: NOVOLOG100 UNITS1 SUBQ (12:52)
[2018-07-19] MEDS ORDERED: LEXAPRO10 MG ORAL (12:52)
[2018-07-19] MEDS ORDERED: GLUCOPHAGE500 MG ORAL (12:52)
[2018-07-19] MEDS ORDERED: LEVEMIR FL100 UNIT/1 SUBQ (12:52)
[2018-07-19] MEDS ORDERED: DESYREL50 MG ORAL (12:52)
--- NOTE | 2018-07-19 12:54 | Pulmonology Progress Note ---
Assessment/Plan Problems: (1) Abdominal pain (2) Anemia (3) HIV disease (4) Urinary tract infection (5) Hepatitis C Assessment/Plan improving tolerating diet GI/surgery evaluation appreciated dvt prophylaxis doing better pt wants to go to a sober living in the morning Subjective ROS Limited/Unobtainable: No Constitutional: Reports: no symptoms HEENT: Repors: no symptoms Respiratory: Reports: no symptoms Allergies: Coded Allergies: No Known Allergies (Unverified , 10/23/16) Objective Last 24 Hour Vital Signs Date Time Temp Pulse Resp B/P (MAP) Pulse Ox O2 Delivery O2 Flow Rate FiO2 07/19/18 12:00 97.9 64 19 118/79 (92) 97 07/19/18 10:45 98.5 07/19/18 09:00 Room Air 07/19/18 08:00 98.5 72 19 106/76 (86) 94 07/19/18 04:00 98.2 71 20 111/78 (89) 98 07/19/18 00:00 98.7 78 19 111/77 (88) 96 07/18/18 21:00 Room Air 07/18/18 20:00 98.7 65 18 115/91 (99) 100 07/18/18 15:55 97.3 74 16 93/69 (77) 94 Intake and Output 07/18/18 07/19/18 18:59 06:59 Intake Total 800 ml Output Total 200 ml 1200 ml Balance 600 ml -1200 ml Other 800 ml Output Urine Total 200 ml 1200 ml # Voids 4 # Bowel Movements 1 General Appearance: WD/WN HEENT: normocephalic, atraumatic Respiratory/Chest: chest wall non-tender, lungs clear Cardiovascular: normal peripheral pulses, normal rate Abdomen: normal bowel sounds, soft, non tender Genitourinary: normal external genitalia Skin: no rash Laboratory Tests 07/19/18 06:40: White Blood Count 5.1, Red Blood Count 3.89L, Hemoglobin 12.3L, Hematocrit 34.0L , Mean Corpuscular Volume 87, Mean Corpuscular Hemoglobin 31.6H, Mean Corpuscular Hemoglobin Concent 36.2H, Red Cell Distribution Width 12.6, Platelet Count 200, Mean Platelet Volume 6.4L, Neutrophils (%) (Auto) 38.3L, Lymphocytes (%) (Auto) 45.0, Monocytes (%) (Auto) 5.7, Eosinophils (%) (Auto) 10.0H, Basophils (%) (Auto) 1.1, Sodium Level 131L, Potassium Level 3.8, Chloride Level 100, Carbon Dioxide Level 23, Anion Gap 8, Blood Urea Nitrogen 13 , Creatinine 0.8, Estimat Glomerular Filtration Rate > 60, Glucose Level 207H, Calcium Level 8.8 Current Medications Medications (Trade) Dose Ordered Sig/Jan Route PRN Reason Start Time Stop Time Status Last Admin Dose Admin Acetaminophen (Tylenol) 325 mg Q6H PRN ORAL Mild Pain/Temp > 100.5 07/11/18 04:00 08/10/18 03:59 Acetaminophen (Tylenol) 1,000 mg Q6H PRN ORAL Moderate Pain (Pain Scale 4-6) 07/11/18 04:00 08/10/18 03:59 Aspirin (ASA) 81 mg DAILY ORAL 07/11/18 09:00 08/10/18 08:59 07/19/18 08:44 Dextrose (Dextrose 50%) 25 ml Q30M PRN IV Hypoglycemia 07/11/18 06:30 08/10/18 06:29 Dextrose (Dextrose 50%) 50 ml Q30M PRN IV Hypoglycemia 07/11/18 06:30 08/10/18 06:29 Docusate Sodium (Colace) 250 mg DAILY ORAL 07/11/18 09:00 08/10/18 08:59 07/19/18 08:43 Escitalopram Oxalate (Lexapro) 20 mg DAILY ORAL 07/11/18 09:00 08/10/18 08:59 07/19/18 08:44 Heparin Sodium (Porcine) (Heparin 5000 units/ml) 5,000 units EVERY 12 HOURS SUBQ 07/11/18 09:45 08/10/18 09:44 07/19/18 08:47 Insulin Aspart (NovoLOG) BEFORE MEALS AND HS SUBQ 07/16/18 16:30 08/15/18 16:29 07/19/18 11:44 Insulin Detemir (Levemir) 18 units BEDTIME SUBQ 07/19/18 21:00 08/10/18 20:59 Magnesium Hydroxide (Mom) 30 ml DAILY PRN ORAL Constipation 07/11/18 04:00 08/10/18 03:59 07/14/18 06:55 Metformin HCl (Glucophage) 1,000 mg BID ORAL 07/19/18 09:00 08/10/18 08:59 07/19/18 08:48 Morphine Sulfate (Morphine Sulfate) 2 mg Q4H PRN IVP Severe Pain (Pain Scale 7-10) 07/18/18 09:00 07/25/18 08:59 07/19/18 10:15 Pantoprazole (Protonix) 40 mg DAILY ORAL 07/11/18 09:00 08/10/18 08:59 07/19/18 08:45 Quetiapine Fumarate (SEROquel) 300 mg BEDTIME ORAL 07/11/18 21:00 08/10/18 20:59 07/18/18 21:21 Sodium Phosphate (Fleet's Sodium Phosl Enema) 133 ml DAILY PRN RECTAL Constipation 07/11/18 04:00 08/10/18 03:59 Trazodone HCl (Desyrel) 50 mg BEDTIME ORAL 07/11/18 21:00 08/10/18 20:59 07/18/18 21:21 Ino Harris MD Jul 19, 2018 12:54
--- NOTE | 2018-07-19 13:35 | General Progress Note ---
Assessment/Plan Problem List: (1) Urinary tract infection ICD Codes: N39.0 - Urinary tract infection, site not specified SNOMED: 73039975 (2) Hepatitis C ICD Codes: B19.20 - Unspecified viral hepatitis C without hepatic coma SNOMED: 16776894 (3) Anemia ICD Codes: D64.9 - Anemia, unspecified SNOMED: 548611459 (4) Abdominal pain ICD Codes: R10.9 - Unspecified abdominal pain SNOMED: 36668967 (5) HIV disease ICD Codes: B20 - Human immunodeficiency virus [HIV] disease SNOMED: 36718087 Status: stable, progressing Assessment/Plan ot pt diet adv diet if possible abx cbc bmp am dc to snf Subjective Constitutional: Reports: weakness Allergies: Coded Allergies: No Known Allergies (Unverified , 10/23/16) All Systems: reviewed and negative except above Subjective calm in bed sleepy Objective Last 24 Hour Vital Signs Date Time Temp Pulse Resp B/P (MAP) Pulse Ox O2 Delivery O2 Flow Rate FiO2 07/19/18 12:00 97.9 64 19 118/79 (92) 97 07/19/18 10:45 98.5 07/19/18 09:00 Room Air 07/19/18 08:00 98.5 72 19 106/76 (86) 94 07/19/18 04:00 98.2 71 20 111/78 (89) 98 07/19/18 00:00 98.7 78 19 111/77 (88) 96 07/18/18 21:00 Room Air 07/18/18 20:00 98.7 65 18 115/91 (99) 100 07/18/18 15:55 97.3 74 16 93/69 (77) 94 Intake and Output 07/18/18 07/19/18 18:59 06:59 Intake Total 800 ml Output Total 200 ml 1200 ml Balance 600 ml -1200 ml Other 800 ml Output Urine Total 200 ml 1200 ml # Voids 4 # Bowel Movements 1 Laboratory Tests 07/19/18 06:40: White Blood Count 5.1, Red Blood Count 3.89L, Hemoglobin 12.3L, Hematocrit 34.0L , Mean Corpuscular Volume 87, Mean Corpuscular Hemoglobin 31.6H, Mean Corpuscular Hemoglobin Concent 36.2H, Red Cell Distribution Width 12.6, Platelet Count 200, Mean Platelet Volume 6.4L, Neutrophils (%) (Auto) 38.3L, Lymphocytes (%) (Auto) 45.0, Monocytes (%) (Auto) 5.7, Eosinophils (%) (Auto) 10.0H, Basophils (%) (Auto) 1.1, Sodium Level 131L, Potassium Level 3.8, Chloride Level 100, Carbon Dioxide Level 23, Anion Gap 8, Blood Urea Nitrogen 13 , Creatinine 0.8, Estimat Glomerular Filtration Rate > 60, Glucose Level 207H, Calcium Level 8.8 Height (Feet): 6 Height (Inches): 0.00 Weight (Pounds): 182 General Appearance: lethargic EENT: normal ENT inspection Neck: normal alignment Cardiovascular: normal peripheral pulses, normal rate, regular rhythm Respiratory/Chest: chest wall non-tender, lungs clear, normal breath sounds Abdomen: normal bowel sounds, non tender, soft Extremities: normal inspection Edema: no edema noted Arm (L), no edema noted Arm (R), no edema noted Leg (L), no edema noted Leg (R), no edema noted Pedal (L), no edema noted Pedal (R), no edema noted Generalized Neurologic: responsive, motor weakness Skin: normal pigmentation, warm/dry Brain Chang DO Jul 19, 2018 13:35
[2018-07-19 16:00] VITALS: BP 114/79
[2018-07-19 20:00] VITALS: BP 115/67
[2018-07-19] MEDS ORDERED: Levemir Flexpen SUBQ SCH (21:00)
[2018-07-19] MEDS: QUEtiapine 200mg tab ORAL SCH (21:19)
[2018-07-19] MEDS: TraZODone 50mg tab ORAL SCH (21:21)
[2018-07-20] VITALS: BP 131/69
[2018-07-20] MEDS: Morphine Sulfate 2mg/ml Inj IVP PRN ×5 (00:24→16:53)
[2018-07-20 04:00] VITALS: BP 107/80
[2018-07-20] MEDS: NovoLOG Insulin Flexpen SUBQ SCH ×5 (06:11→16:50)
--- NOTE | 2018-07-20 07:09 | General Progress Note ---
Assessment/Plan Problem List: (1) Diabetes mellitus out of control ICD Codes: E11.65 - Type 2 diabetes mellitus with hyperglycemia SNOMED: 85938982, 798180361 (2) HIV disease ICD Codes: B20 - Human immunodeficiency virus [HIV] disease SNOMED: 68855536 (3) Abdominal pain ICD Codes: R10.9 - Unspecified abdominal pain SNOMED: 45138134 Assessment/Plan increase Levemir to 24 units qhs continue Metformin to 1000 mg bid add Novolog 6 units ac tid continue NISS ac / hs Subjective Allergies: Coded Allergies: No Known Allergies (Unverified , 10/23/16) All Systems: reviewed and negative except above Subjective events noted Objective Last 24 Hour Vital Signs Date Time Temp Pulse Resp B/P (MAP) Pulse Ox O2 Delivery O2 Flow Rate FiO2 07/20/18 04:00 98.2 73 20 107/80 (89) 94 07/20/18 00:00 97.9 73 20 131/69 (89) 95 07/19/18 21:00 Room Air 07/19/18 20:00 98.5 78 20 115/67 (83) 94 07/19/18 16:00 98.6 71 19 114/79 (91) 95 07/19/18 12:00 97.9 64 19 118/79 (92) 97 07/19/18 10:45 98.5 07/19/18 09:00 Room Air 07/19/18 08:00 98.5 72 19 106/76 (86) 94 Intake and Output 07/19/18 07/20/18 19:00 07:00 Intake Total 840 ml Output Total 950 ml Balance 840 ml -950 ml Intake Oral 840 ml Output Urine Total 950 ml # Voids 5 Height (Feet): 6 Height (Inches): 0.00 Weight (Pounds): 182 General Appearance: no apparent distress Neck: normal alignment Cardiovascular: normal rate Respiratory/Chest: lungs clear Abdomen: normal bowel sounds Pelvis: normal external exam Edema: no edema noted Arm (L), no edema noted Arm (R), no edema noted Leg (L), no edema noted Leg (R), no edema noted Pedal (L), no edema noted Pedal (R), no edema noted Generalized Objective Current Medications Medications (Trade) Dose Ordered Sig/Jan Route PRN Reason Start Time Stop Time Status Last Admin Dose Admin Acetaminophen (Tylenol) 325 mg Q6H PRN ORAL Mild Pain/Temp > 100.5 07/11/18 04:00 08/10/18 03:59 Acetaminophen (Tylenol) 1,000 mg Q6H PRN ORAL Moderate Pain (Pain Scale 4-6) 07/11/18 04:00 08/10/18 03:59 Aspirin (ASA) 81 mg DAILY ORAL 07/11/18 09:00 08/10/18 08:59 07/19/18 08:44 Dextrose (Dextrose 50%) 25 ml Q30M PRN IV Hypoglycemia 07/11/18 06:30 08/10/18 06:29 Dextrose (Dextrose 50%) 50 ml Q30M PRN IV Hypoglycemia 07/11/18 06:30 08/10/18 06:29 Docusate Sodium (Colace) 250 mg DAILY ORAL 07/11/18 09:00 08/10/18 08:59 07/19/18 08:43 Escitalopram Oxalate (Lexapro) 20 mg DAILY ORAL 07/11/18 09:00 08/10/18 08:59 07/19/18 08:44 Heparin Sodium (Porcine) (Heparin 5000 units/ml) 5,000 units EVERY 12 HOURS SUBQ 07/11/18 09:45 08/10/18 09:44 07/19/18 21:21 Insulin Aspart (NovoLOG) BEFORE MEALS AND HS SUBQ 07/16/18 16:30 08/15/18 16:29 07/20/18 06:11 Insulin Detemir (Levemir) 18 units BEDTIME SUBQ 07/19/18 21:00 08/10/18 20:59 07/19/18 21:20 Magnesium Hydroxide (Mom) 30 ml DAILY PRN ORAL Constipation 07/11/18 04:00 08/10/18 03:59 07/14/18 06:55 Metformin HCl (Glucophage) 1,000 mg BID ORAL 07/19/18 09:00 08/10/18 08:59 07/19/18 17:42 Morphine Sulfate (Morphine Sulfate) 2 mg Q4H PRN IVP Severe Pain (Pain Scale 7-10) 07/18/18 09:00 07/25/18 08:59 07/20/18 04:26 Pantoprazole (Protonix) 40 mg DAILY ORAL 07/11/18 09:00 08/10/18 08:59 07/19/18 08:45 Quetiapine Fumarate (SEROquel) 300 mg BEDTIME ORAL 07/11/18 21:00 08/10/18 20:59 07/19/18 21:19 Sodium Phosphate (Fleet's Sodium Phosl Enema) 133 ml DAILY PRN RECTAL Constipation 07/11/18 04:00 08/10/18 03:59 Trazodone HCl (Desyrel) 50 mg BEDTIME ORAL 07/11/18 21:00 08/10/18 20:59 07/19/18 21:21 Item Value Date Time Bedside Blood Glucose 224 mg/dl H 07/20/18 0611 Bedside Blood Glucose 282 mg/dl H 07/19/18 2120 Bedside Blood Glucose 322 mg/dl H 07/19/18 1636 Bedside Blood Glucose 277 mg/dl H 07/19/18 1144 Bedside Blood Glucose 238 mg/dl H 07/19/18 0611 Colton Nunez MD Jul 20, 2018 07:09
[2018-07-20 08:00] VITALS: BP 102/67
[2018-07-20 08:19] LABS: EOSINOPHILS % (AUTO) 9.9 % (0.0-3.0); HEMATOCRIT 35.1 % (42.0-52.0); HEMOGLOBIN 11.9 G/DL (14.2-18.0); LYMPHOCYTES % (AUTO) 46.7 % (20.0-45.0); MEAN CORPUSCULAR VOLUME 88 FL (80-99); MONOCYTES % (AUTO) 7.2 % (1.0-10.0); NEUTROPHILS % (AUTO) 35.2 % (45.0-75.0); PLATELET COUNT 198 K/UL (150-450); RED CELL DISTRIBUTION WIDTH 12.4 % (11.6-14.8); WHITE BLOOD COUNT 5.3 K/UL (4.8-10.8)
[2018-07-20] MEDS: metFORMIN 500mg tab ORAL SCH (08:30)
[2018-07-20] MEDS: Aspirin Baby 81mg ORAL SCH (08:30)
[2018-07-20] MEDS: Docusate 250mg cap ORAL SCH (08:30)
[2018-07-20 08:31] LABS: ANION GAP 7 mmol/L (5-15); BLOOD UREA NITROGEN 14 mg/dL (7-18); CARBON DIOXIDE 25 MMOL/L (21-32); CHLORIDE 100 MMOL/L (98-107); CREATININE 0.9 MG/DL (0.55-1.30); POTASSIUM 3.8 MMOL/L (3.5-5.1); SODIUM 132 MMOL/L (136-145)
[2018-07-20] MEDS: Heparin 5000 units/ml inj SUBQ SCH (08:32)
--- NOTE | 2018-07-20 10:30 | Infectious Diseases Prog Note ---
Assessment/Plan Assessment/Plan ASSESSMENT: The patient is a 58-year-old male with SP abdominal pain CT of the abdomen unremarkable. Hx of HIV CD4 : 456 ( 06/2018) off ARVs ( since 2011) probable non progressor HIV V load: 9300 Hepatitis C Ab + Hepatitis C PCR 12M viral load No evidence of acute bacterial infection / UTI Mild leukopenia History of schizophrenia. History of bowel obstruction, status post resection. History of diabetes. PLAN: will monitor the patient off of antibiotics. need fup with out side HIV provider , to be started as out pt Subjective Allergies: Coded Allergies: No Known Allergies (Unverified , 10/23/16) Subjective Afebrile comfortable Objective Vital Signs Last 24 Hour Vital Signs Date Time Temp Pulse Resp B/P (MAP) Pulse Ox O2 Delivery O2 Flow Rate FiO2 07/20/18 09:00 Room Air 07/20/18 08:00 97.9 81 18 102/67 (79) 94 07/20/18 04:00 98.2 73 20 107/80 (89) 94 07/20/18 00:00 97.9 73 20 131/69 (89) 95 07/19/18 21:00 Room Air 07/19/18 20:00 98.5 78 20 115/67 (83) 94 07/19/18 16:00 98.6 71 19 114/79 (91) 95 07/19/18 12:00 97.9 64 19 118/79 (92) 97 07/19/18 10:45 98.5 Height (Feet): 6 Height (Inches): 0.00 Weight (Pounds): 182 HEENT: atraumatic Respiratory/Chest: no respiratory distress Cardiovascular: normal rate Abdomen: normal bowel sounds Laboratory Tests Test 07/20/18 07:50 White Blood Count 5.3 K/UL (4.8-10.8) Red Blood Count 4.00 M/UL (4.70-6.10) L Hemoglobin 11.9 G/DL (14.2-18.0) L Hematocrit 35.1 % (42.0-52.0) L Mean Corpuscular Volume 88 FL (80-99) Mean Corpuscular Hemoglobin 29.8 PG (27.0-31.0) Mean Corpuscular Hemoglobin Concent 34.0 G/DL (32.0-36.0) Red Cell Distribution Width 12.4 % (11.6-14.8) Platelet Count 198 K/UL (150-450) Mean Platelet Volume 6.6 FL (6.5-10.1) Neutrophils (%) (Auto) 35.2 % (45.0-75.0) L Lymphocytes (%) (Auto) 46.7 % (20.0-45.0) H Monocytes (%) (Auto) 7.2 % (1.0-10.0) Eosinophils (%) (Auto) 9.9 % (0.0-3.0) H Basophils (%) (Auto) 1.0 % (0.0-2.0) Sodium Level 132 MMOL/L (136-145) L Potassium Level 3.8 MMOL/L (3.5-5.1) Chloride Level 100 MMOL/L (98-107) Carbon Dioxide Level 25 MMOL/L (21-32) Anion Gap 7 mmol/L (5-15) Blood Urea Nitrogen 14 mg/dL (7-18) Creatinine 0.9 MG/DL (0.55-1.30) Estimat Glomerular Filtration Rate > 60 mL/min (>60) Glucose Level 156 MG/DL (74-106) H Calcium Level 9.0 MG/DL (8.5-10.1) Current Medications Medications (Trade) Dose Ordered Sig/Jan Route PRN Reason Start Time Stop Time Status Last Admin Dose Admin Acetaminophen (Tylenol) 325 mg Q6H PRN ORAL Mild Pain/Temp > 100.5 07/11/18 04:00 08/10/18 03:59 Acetaminophen (Tylenol) 1,000 mg Q6H PRN ORAL Moderate Pain (Pain Scale 4-6) 07/11/18 04:00 08/10/18 03:59 Aspirin (ASA) 81 mg DAILY ORAL 07/11/18 09:00 08/10/18 08:59 07/20/18 08:30 Dextrose (Dextrose 50%) 25 ml Q30M PRN IV Hypoglycemia 07/20/18 07:15 08/19/18 07:14 Dextrose (Dextrose 50%) 50 ml Q30M PRN IV Hypoglycemia 07/20/18 07:15 08/19/18 07:14 Docusate Sodium (Colace) 250 mg DAILY ORAL 07/11/18 09:00 08/10/18 08:59 07/20/18 08:30 Escitalopram Oxalate (Lexapro) 20 mg DAILY ORAL 07/11/18 09:00 08/10/18 08:59 07/20/18 08:30 Heparin Sodium (Porcine) (Heparin 5000 units/ml) 5,000 units EVERY 12 HOURS SUBQ 07/11/18 09:45 08/10/18 09:44 07/20/18 08:32 Insulin Aspart (NovoLOG) BEFORE MEALS AND HS SUBQ 07/16/18 16:30 08/15/18 16:29 07/20/18 06:11 Insulin Aspart (NovoLOG) 6 units NOVOTIAC SUBQ 07/20/18 11:50 08/19/18 11:49 Insulin Detemir (Levemir) 24 units BEDTIME SUBQ 07/20/18 21:00 08/10/18 20:59 Magnesium Hydroxide (Mom) 30 ml DAILY PRN ORAL Constipation 07/11/18 04:00 08/10/18 03:59 07/14/18 06:55 Metformin HCl (Glucophage) 1,000 mg BID ORAL 07/19/18 09:00 08/10/18 08:59 07/20/18 08:30 Morphine Sulfate (Morphine Sulfate) 2 mg Q4H PRN IVP Severe Pain (Pain Scale 7-10) 07/18/18 09:00 07/25/18 08:59 07/20/18 08:33 Pantoprazole (Protonix) 40 mg DAILY ORAL 07/11/18 09:00 08/10/18 08:59 07/20/18 08:30 Quetiapine Fumarate (SEROquel) 300 mg BEDTIME ORAL 07/11/18 21:00 08/10/18 20:59 07/19/18 21:19 Sodium Phosphate (Fleet's Sodium Phosl Enema) 133 ml DAILY PRN RECTAL Constipation 07/11/18 04:00 08/10/18 03:59 Trazodone HCl (Desyrel) 50 mg BEDTIME ORAL 07/11/18 21:00 08/10/18 20:59 07/19/18 21:21 Jacques Higgins MD Jul 20, 2018 10:30
--- NOTE | 2018-07-20 10:36 | Pulmonology Progress Note ---
Assessment/Plan Problems: (1) Abdominal pain (2) Anemia (3) HIV disease (4) Urinary tract infection (5) Hepatitis C Assessment/Plan improving tolerating diet GI/surgery evaluation appreciated dvt prophylaxis doing better pt wants to go to a sober living in the morning again, but wants to talk to social welfare research worker first Subjective ROS Limited/Unobtainable: No HEENT: Repors: no symptoms Respiratory: Reports: no symptoms Allergies: Coded Allergies: No Known Allergies (Unverified , 10/23/16) Objective Last 24 Hour Vital Signs Date Time Temp Pulse Resp B/P (MAP) Pulse Ox O2 Delivery O2 Flow Rate FiO2 07/20/18 09:00 Room Air 07/20/18 08:00 97.9 81 18 102/67 (79) 94 07/20/18 04:00 98.2 73 20 107/80 (89) 94 07/20/18 00:00 97.9 73 20 131/69 (89) 95 07/19/18 21:00 Room Air 07/19/18 20:00 98.5 78 20 115/67 (83) 94 07/19/18 16:00 98.6 71 19 114/79 (91) 95 07/19/18 12:00 97.9 64 19 118/79 (92) 97 07/19/18 10:45 98.5 Intake and Output 07/19/18 07/20/18 19:00 07:00 Intake Total 840 ml Output Total 950 ml Balance 840 ml -950 ml Intake Oral 840 ml Output Urine Total 950 ml # Voids 5 General Appearance: WD/WN HEENT: normocephalic, anicteric Respiratory/Chest: chest wall non-tender, normal breath sounds Cardiovascular: normal peripheral pulses, normal rate Abdomen: normal bowel sounds, soft, non tender Genitourinary: normal external genitalia Extremities: no clubbing Skin: no rash Laboratory Tests 07/20/18 07:50: White Blood Count 5.3, Red Blood Count 4.00L, Hemoglobin 11.9L, Hematocrit 35.1L , Mean Corpuscular Volume 88, Mean Corpuscular Hemoglobin 29.8, Mean Corpuscular Hemoglobin Concent 34.0, Red Cell Distribution Width 12.4, Platelet Count 198, Mean Platelet Volume 6.6, Neutrophils (%) (Auto) 35.2L, Lymphocytes ( %) (Auto) 46.7H, Monocytes (%) (Auto) 7.2, Eosinophils (%) (Auto) 9.9H, Basophils (%) (Auto) 1.0, Sodium Level 132L, Potassium Level 3.8, Chloride Level 100, Carbon Dioxide Level 25, Anion Gap 7, Blood Urea Nitrogen 14, Creatinine 0.9, Estimat Glomerular Filtration Rate > 60, Glucose Level 156H, Calcium Level 9.0 Current Medications Medications (Trade) Dose Ordered Sig/Jan Route PRN Reason Start Time Stop Time Status Last Admin Dose Admin Acetaminophen (Tylenol) 325 mg Q6H PRN ORAL Mild Pain/Temp > 100.5 07/11/18 04:00 08/10/18 03:59 Acetaminophen (Tylenol) 1,000 mg Q6H PRN ORAL Moderate Pain (Pain Scale 4-6) 07/11/18 04:00 08/10/18 03:59 Aspirin (ASA) 81 mg DAILY ORAL 07/11/18 09:00 08/10/18 08:59 07/20/18 08:30 Dextrose (Dextrose 50%) 25 ml Q30M PRN IV Hypoglycemia 07/20/18 07:15 08/19/18 07:14 Dextrose (Dextrose 50%) 50 ml Q30M PRN IV Hypoglycemia 07/20/18 07:15 08/19/18 07:14 Docusate Sodium (Colace) 250 mg DAILY ORAL 07/11/18 09:00 08/10/18 08:59 07/20/18 08:30 Escitalopram Oxalate (Lexapro) 20 mg DAILY ORAL 07/11/18 09:00 08/10/18 08:59 07/20/18 08:30 Heparin Sodium (Porcine) (Heparin 5000 units/ml) 5,000 units EVERY 12 HOURS SUBQ 07/11/18 09:45 08/10/18 09:44 07/20/18 08:32 Insulin Aspart (NovoLOG) BEFORE MEALS AND HS SUBQ 07/16/18 16:30 08/15/18 16:29 07/20/18 06:11 Insulin Aspart (NovoLOG) 6 units NOVOTIAC SUBQ 07/20/18 11:50 08/19/18 11:49 Insulin Detemir (Levemir) 24 units BEDTIME SUBQ 07/20/18 21:00 08/10/18 20:59 Magnesium Hydroxide (Mom) 30 ml DAILY PRN ORAL Constipation 07/11/18 04:00 08/10/18 03:59 07/14/18 06:55 Metformin HCl (Glucophage) 1,000 mg BID ORAL 07/19/18 09:00 08/10/18 08:59 07/20/18 08:30 Morphine Sulfate (Morphine Sulfate) 2 mg Q4H PRN IVP Severe Pain (Pain Scale 7-10) 07/18/18 09:00 07/25/18 08:59 07/20/18 08:33 Pantoprazole (Protonix) 40 mg DAILY ORAL 07/11/18 09:00 08/10/18 08:59 07/20/18 08:30 Quetiapine Fumarate (SEROquel) 300 mg BEDTIME ORAL 07/11/18 21:00 08/10/18 20:59 07/19/18 21:19 Sodium Phosphate (Fleet's Sodium Phosl Enema) 133 ml DAILY PRN RECTAL Constipation 07/11/18 04:00 08/10/18 03:59 Trazodone HCl (Desyrel) 50 mg BEDTIME ORAL 07/11/18 21:00 08/10/18 20:59 07/19/18 21:21 Ino Harris MD Jul 20, 2018 10:36
[2018-07-20 12:00] VITALS: BP 105/63
--- NOTE | 2018-07-20 12:46 | General Progress Note ---
Assessment/Plan Problem List: (1) Urinary tract infection ICD Codes: N39.0 - Urinary tract infection, site not specified SNOMED: 83447336 (2) Hepatitis C ICD Codes: B19.20 - Unspecified viral hepatitis C without hepatic coma SNOMED: 91715398 (3) Anemia ICD Codes: D64.9 - Anemia, unspecified SNOMED: 114037438 (4) Abdominal pain ICD Codes: R10.9 - Unspecified abdominal pain SNOMED: 32413219 (5) HIV disease ICD Codes: B20 - Human immunodeficiency virus [HIV] disease SNOMED: 81742943 Status: stable, progressing Assessment/Plan ot pt diet adv diet if possible abx dc to snf Subjective Constitutional: Reports: weakness Allergies: Coded Allergies: No Known Allergies (Unverified , 10/23/16) All Systems: reviewed and negative except above Subjective calm in bed sleepy Objective Last 24 Hour Vital Signs Date Time Temp Pulse Resp B/P (MAP) Pulse Ox O2 Delivery O2 Flow Rate FiO2 07/20/18 12:00 97.7 68 14 105/63 (77) 95 07/20/18 09:00 Room Air 07/20/18 08:00 97.9 81 18 102/67 (79) 94 07/20/18 04:00 98.2 73 20 107/80 (89) 94 07/20/18 00:00 97.9 73 20 131/69 (89) 95 07/19/18 21:00 Room Air 07/19/18 20:00 98.5 78 20 115/67 (83) 94 07/19/18 16:00 98.6 71 19 114/79 (91) 95 Intake and Output 07/19/18 07/20/18 18:59 06:59 Intake Total 840 ml Output Total 950 ml Balance 840 ml -950 ml Intake Oral 840 ml Output Urine Total 950 ml # Voids 5 Laboratory Tests 07/20/18 07:50: White Blood Count 5.3, Red Blood Count 4.00L, Hemoglobin 11.9L, Hematocrit 35.1L , Mean Corpuscular Volume 88, Mean Corpuscular Hemoglobin 29.8, Mean Corpuscular Hemoglobin Concent 34.0, Red Cell Distribution Width 12.4, Platelet Count 198, Mean Platelet Volume 6.6, Neutrophils (%) (Auto) 35.2L, Lymphocytes ( %) (Auto) 46.7H, Monocytes (%) (Auto) 7.2, Eosinophils (%) (Auto) 9.9H, Basophils (%) (Auto) 1.0, Sodium Level 132L, Potassium Level 3.8, Chloride Level 100, Carbon Dioxide Level 25, Anion Gap 7, Blood Urea Nitrogen 14, Creatinine 0.9, Estimat Glomerular Filtration Rate > 60, Glucose Level 156H, Calcium Level 9.0 Height (Feet): 6 Height (Inches): 0.00 Weight (Pounds): 182 General Appearance: lethargic EENT: normal ENT inspection Neck: normal alignment Cardiovascular: normal peripheral pulses, normal rate, regular rhythm Respiratory/Chest: chest wall non-tender, lungs clear, normal breath sounds Abdomen: normal bowel sounds, non tender, soft Extremities: normal inspection Edema: no edema noted Arm (L), no edema noted Arm (R), no edema noted Leg (L), no edema noted Leg (R), no edema noted Pedal (L), no edema noted Pedal (R), no edema noted Generalized Neurologic: motor weakness Skin: normal pigmentation, warm/dry Brain Chang DO Jul 20, 2018 12:46
--- NOTE | 2018-07-20 15:26 | GI Progress Note ---
Assessment/Plan Problems: (1) Abdominal pain ICD Codes: R10.9 - Unspecified abdominal pain SNOMED: 95453462 (2) Anemia ICD Codes: D64.9 - Anemia, unspecified SNOMED: 511605610 (3) Hepatitis C ICD Codes: B19.20 - Unspecified viral hepatitis C without hepatic coma SNOMED: 19548747 (4) HIV disease ICD Codes: B20 - Human immunodeficiency virus [HIV] disease SNOMED: 97429372 (5) Urinary tract infection ICD Codes: N39.0 - Urinary tract infection, site not specified SNOMED: 86043656 Status: stable Status Narrative Discussed with Dr. Billings. Assessment/Plan abdominal pain etiology unknown non specific neg CT for an acute finding history of SBO with resection per patient. okay for DC per GI standpoint adv diet ADA repeat labs ppi zofran prn pain control outpatient colonoscopy The patient was seen and examined at bedside and all new and available data was reviewed in the patients chart. I agree with the above findings, impression and plan. (Patient seen earlier today. Signature stamp does not reflect patient encounter time.). - David Billings MD Subjective Subjective abdominal pain improved Objective Last 24 Hour Vital Signs Date Time Temp Pulse Resp B/P (MAP) Pulse Ox O2 Delivery O2 Flow Rate FiO2 07/20/18 12:00 97.7 68 14 105/63 (77) 95 07/20/18 09:00 Room Air 07/20/18 08:00 97.9 81 18 102/67 (79) 94 07/20/18 04:00 98.2 73 20 107/80 (89) 94 07/20/18 00:00 97.9 73 20 131/69 (89) 95 07/19/18 21:00 Room Air 07/19/18 20:00 98.5 78 20 115/67 (83) 94 07/19/18 16:00 98.6 71 19 114/79 (91) 95 Intake and Output 07/19/18 07/20/18 18:59 06:59 Intake Total 840 ml Output Total 950 ml Balance 840 ml -950 ml Intake Oral 840 ml Output Urine Total 950 ml # Voids 5 Laboratory Tests Test 07/20/18 07:50 White Blood Count 5.3 K/UL (4.8-10.8) Red Blood Count 4.00 M/UL (4.70-6.10) L Hemoglobin 11.9 G/DL (14.2-18.0) L Hematocrit 35.1 % (42.0-52.0) L Mean Corpuscular Volume 88 FL (80-99) Mean Corpuscular Hemoglobin 29.8 PG (27.0-31.0) Mean Corpuscular Hemoglobin Concent 34.0 G/DL (32.0-36.0) Red Cell Distribution Width 12.4 % (11.6-14.8) Platelet Count 198 K/UL (150-450) Mean Platelet Volume 6.6 FL (6.5-10.1) Neutrophils (%) (Auto) 35.2 % (45.0-75.0) L Lymphocytes (%) (Auto) 46.7 % (20.0-45.0) H Monocytes (%) (Auto) 7.2 % (1.0-10.0) Eosinophils (%) (Auto) 9.9 % (0.0-3.0) H Basophils (%) (Auto) 1.0 % (0.0-2.0) Sodium Level 132 MMOL/L (136-145) L Potassium Level 3.8 MMOL/L (3.5-5.1) Chloride Level 100 MMOL/L (98-107) Carbon Dioxide Level 25 MMOL/L (21-32) Anion Gap 7 mmol/L (5-15) Blood Urea Nitrogen 14 mg/dL (7-18) Creatinine 0.9 MG/DL (0.55-1.30) Estimat Glomerular Filtration Rate > 60 mL/min (>60) Glucose Level 156 MG/DL (74-106) H Calcium Level 9.0 MG/DL (8.5-10.1) Height (Feet): 6 Height (Inches): 0.00 Weight (Pounds): 182 General Appearance: WD/WN, no apparent distress, alert Cardiovascular: normal rate Respiratory/Chest: normal breath sounds, no respiratory distress Abdominal Exam: normal bowel sounds, non tender, soft Extremities: normal range of motion, non-tender Rodrigo Johnson NP Jul 20, 2018 15:26
[2018-07-20 16:00] VITALS: BP_SYST 106; BP_SYST 117; BP_DIAS 73
[2018-07-20] MEDS ORDERED: Levemir Flexpen SUBQ SCH (21:00)
--- NOTE | 2018-07-22 14:22 | Discharge Summary ---
Discharge Summary Discharge Summary _ DATE OF ADMISSION: 07/10/2018 DATE OF DISCHARGE: 07/20/2018 REASON FOR ADMISSION: 58years old male with history of COPD, hypertension ,crack cocaine use, hepatitis C, HIV disease, GERD ,diabetes ,schizophrenia, depression, was brought in for abdominal discomfort. Patient reported generalized abdominal pain. No fever no chills He reported diarrhea and episode of vomiting a week ago , no blood in vomitus. No bloody stools upon evaluation vital signs were stable. Laboratory workup revealed no leukocytosis, hemoglobin 11.8 hematocrit 32.6 . Renal parameters and electrolytes were stable. CT of the abdomen and pelvis revealed no acute intra-abdominal pathology. EKG revealed normal sinus rhythm, no acute ischemic changes. Urinalysis revealed evidence of pyuria +1 leukocytes esterase , few bacteria. Patient admitted with diagnoses of abdominal pain,hepatitis C, HIV infection, possible UTI. CONSULTANTS: Pulmonary Dr. Harris ID specialist Dr. Higgins GI specialist Dr. Billings Lathe Set Up Person Dr. Nunez [place] [employer] [facility]RSE: Patient admitted and started on IV fluids. Pain management was addressed, pain was controlled and resolved subsequently. Supportive care provided. Antiemetics provided as needed. GI specialist closely follow. GI prophylaxis provided. Diet slowly advanced as tolerated. Patient was able to tolerate diet. GI specialist recommended outpatient colonoscopy, since cause of abdominal pain was unclear at this time, possible due to hepatitis C. Supplemental oxygen and pulmonary toilet provided as needed. Pulse oximetry was stable on room air prior to discharge. DVT prophylaxis provided. Noted blood sugar out of control. Blood sugar was managed as per pressure welder recommendations with long- acting Levemir, Metformin and premeal short acting NovoLog along with sliding scale of NovoLog as needed. Dose of Levemir was uptitrated to keep blood sugar under control. Patient educated on diabetic diet any to comply with medication regimen as outpatient. Infectious disease specialist closely followed . Patient had no evidence of infection. Hepatitis C antibody positive with hepatitis C PCR viral load 12 millions. Outpatient treatment for hepatitic C recommended. Patient had a history of HIV. CD4 count -456 . Patient off antiretroviral therapy since 2011, probably nonprogressor. HIV load 9300. Infectious disease doctor recommended to keep patient off antibiotics since no clinical evidence of infection. Follow-up with his outside HIV provider as outpatient. Hemoglobin and hematocrit were closely monitored with goal to keep hemoglobin above 7. Hemoglobin and hematocrit remain at baseline. Anemia workup was consistent with anemia of chronic disease. Home medications resumed. Patient expresses desire to go to sober living. Placement was found by social director . Patient was stable for discharge. Patient counseled on abstinence form street drugs. FINAL DIAGNOSES: Abdominal pain -resolved Hepatitis C HIV disease Anemia Diabetes mellitus out of control Schizophrenia DISCHARGE MEDICATIONS: See Medication Reconciliation list. DISCHARGE INSTRUCTIONS: Patient was discharged to skilled living I have been assigned to dictate discharge summary for this account. I was not involved in the patient's management. Rere Grossman NP Jul 22, 2018 14:22
== END 2018-07-20 17:30 | disposition home or self-care (01) | DRG 251 ==
LOC: EDBD 17:52 → EMR 18:06 → 4E 22:06 → EDBEDREQ 22:27
DX: R10.9 Unspecified abdominal pain (principal); B20 Human immunodeficiency virus [HIV] disease; B19.20 Unspecified viral hepatitis C without hepatic coma; E11.65 Type 2 diabetes mellitus with hyperglycemia; F20.9 Schizophrenia, unspecified; D64.9 Anemia, unspecified; N39.0 Urinary tract infection, site not specified; Z79.4 Long term (current) use of insulin; D63.8 Anemia in other chronic diseases classified elsewhere; F14.21 Cocaine dependence, in remission; E87.1 Hypo-osmolality and hyponatremia
CPT/HCPCS: 36415; 74177; 80048; 80053; 80307; 81003; 82150; 82270; 82378; 82607; 82746; 82962; 83540; 83550; 83690; 84484; 85025; 86360; 86689; 86703; 86705; 86709; 86803; 87081; 87340; 87522; 87536; 90686; 93005; 96374; 96375; 99285; J1815; J2405; S5561